=== PATIENT | male | born 1995 | race African-American/Black ===

== ENCOUNTER 2019-08-03 14:01 | Inpatient (IN) | payer MEDICAID, SELFPAY ==
[2019-08-03 14:03] VITALS: BP 134/76; PULSE 53; RESP 17; TEMP 36.6; O2SAT 97; BMI 32.3
--- NOTE | 2019-08-03 14:05 | ED_ITS ---
Entered by Joy Wallace, acting as scribe for Hector Aggarwal MD HPI - Psych General: Chief Complaint: Psychiatric Symptoms Stated Complaint: SUICIDAL Time Seen by Provider: 08/03/19 14:05 Source: patient and EMS Mode of arrival: EMS Limitations: no limitations History of Present Illness: HPI Narrative: 24 yo male presents to ED with suicidal ideations. The patient states this has been going on for 6-8 months. He said today that he was having heart problems and this just sent him over the roof . The patient denies chest pain. He said he does not have a plan. The patient has a history of anxiety, schizophrenia, and depression. complaint: suicidal ideation Onset (ago): hour(s) Duration: constant History of same: Yes Relieving factors: medication Exacerbating factors: other (health issues) Context: significant life stressor (health problems) Associated psychiatric symptoms: depression Associated symptoms: Reports depression Treatments prior to arrival: none If self harm: admits thoughts of self harm Review of Systems Const: Denies: fever or chills Eyes: Denies: photophobia ENMT: Denies: throat pain or mouth pain Card: Denies: chest pain Resp: Denies: shortness of breath GI: Denies: abdominal pain, nausea, vomiting or diarrhea Musc: Denies: joint warmth Skin/Breast: Denies: rash Neuro: Denies: headache Psych: Reports: depression Endo: Denies: excessive urination Lavell/Lymph: Denies: easy bruising All/Imm: Denies: hives PFSH ED PFSH: Statuses (acute, chronic, etc) shown below reflect problem list status as previously entered and may not be historically accurate Medical History (Updated 08/03/19 @ 15:21 by Hector Aggarwal MD) Agoraphobia with panic disorder (Acute) Generalized anxiety disorder (Acute) Major depressive disorder, recurrent, moderate (Acute) Right bundle branch block (RBBB) on electrocardiogram (ECG) (Acute) Schizophrenia (Acute) ST elevation (Acute) Social History (Updated 08/03/19 @ 11:41 by Kelli Little LPN) Smoking and tobacco status: current every day smoker cigarettes Alcohol intake: never Current gender identity: Male Physical Exam Const: COMMON NORMALS: no apparent distress, oriented x3 and healthy appearing HENMT: COMMON NORMALS: normocephalic and external nose normal HEAD & SCALP: normocephalic NOSE: external nose normal Eye: COMMON NORMALS: PERRL PUPIL: Yes PERRL Neck/C-Spine: COMMON NORMALS: full ROM and no lymphadenopathy Chest: COMMONS NORMALS: inspection of chest normal Resp: COMMON NORMALS: normal respiratory effort, no use of accessory muscles and clear to auscultation bilaterally AUSCULTATION: clear to auscultation bilaterally Cardio: COMMON NORMALS: regular rate and regular rhythm RATE: regular rate RHYTHM: regular rhythm GI: COMMON NORMALS: normal to inspection, nondistended, normoactive bowel sounds, soft to palpation, non-tender and no masses PALPATION: Yes soft Back/Pelvis: THORACIC SPINE/UPPER BACK: Yes normal to inspection Extremity: COMMON NORMALS: normal to inspection, full ROM and normal capillary refill Neuro: COMMON NORMALS: oriented x3 Psych: COMMON NORMALS: mental status grossly normal and cooperative MOOD & AFFECT: Yes depressed mood Skin: COMMON NORMALS: no rashes or lesions noted GENERAL SKIN EXAM: no rashes or lesions noted MDM - Psych MDM Narrative: Medical decision making narrative: Patient presents here with suicidal ideation. Patient is voluntarily wanting help. Patient is medically cleared I spoke to psychiatrist Dr. Aguila and will admit to the psychiatric unit. Lab Data: Labs: Lab Results 08/03/19 08/03/19 08/03/19 Range/Units 14:20 14:30 14:30 WBC 6.5 (4.0-10.0) 10^3/ uL RBC 5.73 H (4.1-5.3) 10^6/u L Hgb 15.5 (11.7-16.6) g/dL Hct 48.9 (42.0-52.0) % MCV 85.3 (80-94) fL MCH 27.1 L (28.0-34.0) pg MCHC 31.7 (30.0-36.0) g/dL RDW 12.4 (12.1-15.1) % Plt Count 183 (130-400) 10^3/c mm MPV 10.3 (7.4-10.4) fL Neut % (Auto) 72.1 % Lymph % (Auto) 20.9 % [place] % (Auto) 5.4 % Eos % (Auto) 0.9 % Baso % (Auto) 0.5 % Neut # (Auto) 4.7 (1.8-7.7) 10^3/u L Lymph # (Auto) 1.4 (0.8-4.8) 10^3/u L [place] # (Auto) 0.4 (0.2-0.9) 10^3/u L Eos # (Auto) 0.1 (0.0-0.8) 10^3/u L Baso # (Auto) 0.0 (0.0-0.1) 10^3/u L Nucleated RBC % (a uto) 0 % Nucleated RBCs # 0.0 /100WBC Sodium 141 (136-145) mmol/L Potassium 3.9 (3.5-5.1) mmol/L Chloride 102 (98-107) mmol/L Carbon Dioxide 28 (22-29) mmol/L Anion Gap 14.9 (5-19) BUN 12 (6-20) mg/dL Creatinine 1.2 (0.7-1.2) mg/dL GFR Calculation 90.8 (90-130) mL/min Glucose 109 (74-109) mg/dL Calcium 9.9 (8.5-10.5) mg/dL Total Bilirubin 0.4 (0.15-1.2) mg/dL AST 20 (0-40) U/L ALT 17 (0-41) U/L Alkaline Phosphata se 99 (40-130) IU/L Total Protein 7.2 (6.6-8.7) g/dL Albumin 4.7 (3.5-5.2) g/dL Globulin 2.5 (1.3-4.6) g/dL Salicylates < 0.3 L (3-10) mg/dL Urine Opiates Scre en Negative (Negative) ng/mL Acetaminophen < 5.0 L (10-30) ug/mL Ur Barbiturates Sc reen Negative (Negative) ng/mL Ur Phencyclidine S crn Negative (Negative) ng/mL Ur Amphetamines Sc reen Negative (Negative) ng/mL U Benzodiazepines Scrn Negative (Negative) ng/mL Urine Cocaine Scre en Negative (Negative) ng/mL U Marijuana (THC) Screen Positive H (Negative) ng/mL Ethyl Alcohol < 10 (0-10) mg/dL Discharge Plan Discharge Patient Disposition: Admitted As Inpatient Admit Provider: Krunal Aguila Clinical Impression: Suicidal ideation Condition: Stable Referrals: Abbi Saleem MD [Family Provider] - Betty Avila MD [Primary Care Provider] - Coding Level of Care Code ED Clinic Lpn for Chg Fwd Exam Problem Focused The documentation recorded by the Madison hathaway Valerie R, accurately reflects the service I personally performed and the decisions made by me, Hector Aggarwal MD Aug 03, 2019 14:01
[2019-08-03 14:41] LABS: Basophils % 0.5 %; Eosinophils # 0.1 10^3/uL (0.0-0.8); Eosinophils % 0.9 %; Hematocrit 48.9 % (42.0-52.0); Hemoglobin 15.5 g/dL (11.7-16.6); Lymphocytes # 1.4 10^3/uL (0.8-4.8); Lymphocytes % 20.9 %; Mean Corpuscular HGB Conc 31.7 g/dL (30.0-36.0); Mean Corpuscular Hemoglobin 27.1 pg (28.0-34.0); Mean Corpuscular Volume 85.3 fL (80-94); Mean Platelet Volume 10.3 fL (7.4-10.4); Monocytes # 0.4 10^3/uL (0.2-0.9); Monocytes % 5.4 %; Neutrophils # 4.7 10^3/uL (1.8-7.7); Neutrophils % 72.1 %; Nucleated Red Blood Cells % 0 %; Platelet Count 183 10^3/cmm (130-400); Red Blood Count 5.73 10^6/uL (4.1-5.3); Red Cell Distribution Width 12.4 % (12.1-15.1); White Blood Count 6.5 10^3/uL (4.0-10.0)
[2019-08-03 15:07] LABS: Alanine Aminotransferase 17 U/L (0-41); Albumin Level 4.7 g/dL (3.5-5.2); Alkaline Phosphatase 99 IU/L (40-130); Anion Gap 14.9 (5-19); Aspartate Amino Transferase 20 U/L (0-40); Blood Urea Nitrogen 12 mg/dL (6-20); Calcium 9.9 mg/dL (8.5-10.5); Carbon Dioxide 28 mmol/L (22-29); Chloride 102 mmol/L (98-107); Globulin 2.5 g/dL (1.3-4.6); Glomerular Filtration Rate 90.8 mL/min (90-130); Glucose 109 mg/dL (74-109); Potassium 3.9 mmol/L (3.5-5.1); Sodium 141 mmol/L (136-145); Total Bilirubin 0.4 mg/dL (0.15-1.2); Total Protein 7.2 g/dL (6.6-8.7)
[2019-08-03 15:12] LABS: Acetaminophen < 5.0 ug/mL (10-30); Alcohol Level < 10 mg/dL (0-10); Salicylate < 0.3 mg/dL (3-10)
[2019-08-03 15:21] LABS: Amphetamines Screen Urine Negative (Negative); Barbiturates Screen Urine Negative (Negative); Benzodiazepines Screen Urine Negative (Negative); Cocaine Screen Urine Negative (Negative); Opiate Screen Urine Negative (Negative); PCP Screen Urine Negative (Negative); THC Screen Urine Positive (Negative)
[2019-08-03 15:56] VITALS: BP 134/67; PULSE 60; RESP 18; O2SAT 98
[2019-08-03 16:35] VITALS: BP 123/83; PULSE 61; RESP 18; TEMP 36.8; O2SAT 98
--- NOTE | 2019-08-03 16:47 | PM.NHP ---
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 They told me I can't exercise any more. History of present illness: Luis Fernando Hanley Is a 24-year-old man with a documented history of schizophrenia and major depression amplified by occasional panic attacks. He reports that in general he is doing well and feels that his medications for the schizophrenia and depression are effective and is not interested changed. He saw a machine adjuster leader case trim yesterday the [facility]] with documentation listed below that confirms that he was actually doing well. 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 He has a history of an EKG that shows a right bundle branch block. There is a reading from his last hospitalization in April 2019 from an EKG that lists a right bundle branch block as an assessment. However it is not clear whether that has ever been confirmed. His primary care physician has referred him to a multimedia author but he does not have an appointment made yet. This has been a quite a blow to his perception of the future. He is currently feeling hopeless and overwhelmed. There is the only thing felt good at. Without being able to engage in that activity, he feels as though there is nothing to live for and he would want to . He has no active plan and no intent at this time. However he is quite ruminated and does not see any potential changes from the future. Laboratory Tests 08/03/19 08/03/19 14:20 14:30 Urine Opiates Screen Negative Ur Barbiturates Screen Negative Ur Phencyclidine Scrn Negative Ur Amphetamines Screen Negative U Benzodiazepines Scrn Negative Urine Cocaine Screen Negative U Marijuana (THC) Screen Positive H Ethyl Alcohol < 10 Documentation from meeting with his machine adjuster leader case trim earlier today: Psychosocial History Chief Complaint: Client reports: anxiety and depression makes each day difficult . History of Present Illness: anxiety started about 1 year ago, feel like I am going to , get to shaking sometimes, worry comes and goes, experience panic attacks about once a day, feel like I cannot breathe and when will I have the next one, was hospitalized in February for sucidal thoughts. Childhood/Family History:: Individual Served reports pertinent childhood/family history to include decent childhood, raised by single mother, father was not in my life, 3 brothers I knew growing up, raised in this area. PHQ-9 Over the last 2 weeks, how often have you been bothered by any of the following problems? 1. Little interest or pleasure in doing things: not at all 2. Feeling down, depressed, or hopeless: more than half the days 3. Trouble falling or staying asleep, or sleeping too much: not at all 4. Feeling tired or having little energy: not at all 5. Poor appetite or overeating: not at all 6. Feeling bad about yourself - or that you are a failure or have let yourself or your family down: several days 7. Trouble concentrating on things, such as reading the newspaper or watching television: not at all 8. Moving or speaking so slowly that other people could have noticed. Or the opposite - being so fidgety or restless that you have been moving around a lot more than usual: more than half the days 9. Thoughts that you would be better off or of hurting yourself in some way: not at all Total score: 5 10. If you checked off any problems, how difficult have those problems made it for you to do your work, take care of things at home, or get along with other people?: somewhat difficult Source: Developed by Drs. Jerome George, Maria Del Rosario Avila, Antonio Mallory and colleagues, with an educational pamela from [employer]. C-SSRS Suicide Ideation for the Past Month Have you wished you were or wished you could go to sleep and not wake up?: Yes Have you actually had any thoughts of killing yourself? (e.g., ?I?ve thought about killing myself?): Yes If YES to 2, ask questions 3, 4, 5, and 6. If NO to 2, go directly to question 6 Have you been thinking about how you might do this? ?I thought about taking an overdose but I never made a specific plan as to when where or how I would actually do it and I would never go through with it : Yes I thought about taking an overdose but I never made a specific plan as to when, where, or how I would actually do it....and I would never go through with it Have you had these thoughts and had some intention of acting on them? As opposed to ?I have the thoughts but I definitely will not do anything about them.?: Yes As opposed to I have the thoughts but I definitely will not do anything about them. Have you started to work out or worked out the details of how to kill yourself and do you intend to carry out this plan?: No Have you done anything, started to do anything, or prepared to do anything to end your life?: No How long ago did you do any of these?: Between three months and a year ago? Psychiatric Diagnosis 1. Diagnosis: Psychiatric Diagnosis: Generalized anxiety disorder 2. Diagnosis: Psychiatric Diagnosis: Panic disorder [episodic paroxysmal anxiety] 3. Diagnosis: Psychiatric Diagnosis: Schizophrenia, unspecified Psychiatric Treatment GAF: 50 Past psychiatric history Patient has had 2 prior psychiatric hospitalizations this facility. He has responded well to treatment. It should be noted that he had an adverse reaction to Abilify which caused him to have insomnia and severe akathisia. Family psychiatric history It is noted that he has a brother who has been treated for the same diagnoses. His physician is familiar with the brother and his noted that the brother also had a severe extraparamydal response to Haldol and similar antipsychotic medication To the point of life threatening. Social history: Level of Completed Education: GED Completed History of Education: Dropped out after 10th grade then completed GED Academic Performance: Performance at grade level Language(s) Spoken: [place] Vocational Information: Other (currently working with [employer]) Financial Information: Other Employment History: Not currently working, going through the [facility] program Legal Status/History: Current legal issues denied Legal Issues Reported: N/A Ability to Care for Self: Reports being able to care for self Current Living Environment: Relative ( I live with my mother. ) Social/Peer Setting: Family Spiritual Pursuits: Restorationism Leisure/Recreational: play video games, go for a run, exercise. Individual's Obstacles: Limited Income, Low Self-Esteem, Chronic Mental Illness, Chaotic Lifestyle and Limited Insight Individual's Needs: finding a job. Legal history: Past medical history: Meds NPU Allergies Allergy/AdvReac Type Severity Reaction Status Date / Time No Known Allergies Allergy Verified 08/03/19 11:34 PFSH NPU PFSH: Statuses (acute, chronic, etc) shown below reflect problem list status as previously entered and may not be historically accurate Medical History (Updated 08/03/19 @ 15:21 by Hector Aggarwal MD) Agoraphobia with panic disorder (Acute) Generalized anxiety disorder (Acute) Major depressive disorder, recurrent, moderate (Acute) Right bundle branch block (RBBB) on electrocardiogram (ECG) (Acute) Schizophrenia (Acute) ST elevation (Acute) Social History (Updated 08/03/19 @ 11:41 by Kelli Little LPN) Smoking and tobacco status: current every day smoker cigarettes Alcohol intake: never Current gender identity: Male Mental Status Exam MSE Comments: Mental Status Exam: The patient is alert interpersonally engaged me in approximately his stated age. Eye contact is good. Psychomotoric activity is unremarkable. He is believed to be a reliable informant is the information revises internally consistent and consistent with that in his chart history. Appearance: hygiene is fair; no gross neurological deficits., gait is unremarkable; AIMS=0 Speech: Speech is of normal rate and rhythm and easily understood. Thought processes: Thought processes are abstract. Judgment is adequate for safety. Associations: intact Psychotic processes: There is no indication of guarding or paranoia. There is no attention to the internal stimuli. Auditory and visual hallucinations are denied. Judgment: Insight is fair. Problem solving skills are adequate for safety. Orientation: The patient is oriented to person, place time and situation. Memory: no deficits noted in immediate, intermediate, or remote spheres. Attention: The patient is alert and interpersonally engaged. Language: Verbalizations are coherent. Fund of knowledge: Fund of knowledge is adequate. Affect/Mood: Affect is Occasionally tearful with a depressed mood. 89 suicidal ideation Affective range is Constricted Psychosis: perception unimpaired except through cognitive distortion; reality testing intact. Vitals/I&O/Wt Last Vital Signs Temp 98.2 F 08/03/19 16:35 Pulse 61 08/03/19 16:35 Resp 18 08/03/19 16:35 BP 123/83 08/03/19 16:35 Pulse Ox 98 08/03/19 16:35 Weight last 48 hrs Weight 102.058 kg Data NPU : 08/03/19 14:30 08/03/19 14:30 A&P Additional A&P Information Adjustment disorder with disturbance of mood?Depressed Schizophrenia Chronic?undifferentiated Social phobia (F40.10) Generalized anxiety disorder (F41.1) Major Depressive Disorder- Recurrent, in remission Assessment: Treatment plan: Due to the psychiatric conditions and treatment listed in the Assessment and Plan - the patient requires continued hospitalization. Will provide a safe and therapeutic environment for patient.. Will continue inpatient treatment to allow for medication adjustment and monitoring. Will continue q15 min safety checks. Will continue current medications and monitor for medication side effects. At this time we will continue his Zyprexa 20 mg bedtime and proximal teeth 40 mg at bedtime. He'll be given a trial of diazepam 5 mg anxiety to assess its improved response to Over clonazepam Monitor patient's mood, sleep, appetite, and behavior closely. Encourage patient to participate in individual and group therapeutic sessions on the [place]. Estimated length of stay 5 days The expected benefits and potential side effects of patient's psychiatric medications were discussed with the patient. The patient understands and consents to treatment.CRITERIA FOR DISCHARGE: stable on medications and no longer an im Attestations NPU Medical Necessity Statement*: Patient will remain in the hospital while we assess his medications. He'll be here for 3 more days. Coding Level of Care Code Acute A P Mechanic for Jamal Bell
[2019-08-03 21:02] VITALS: BP 121/79; PULSE 64; RESP 18; TEMP 36.4; O2SAT 95
[2019-08-03] MEDS: OLANZapine 10 mg TABLET 20 MG PO (21:10)
[2019-08-04] MEDS: nicotine 2 mg Gum BUCCAL ×3 (00:36→19:45)
[2019-08-04] MEDS: trazodone 50 mg Tablet PO ×2 (00:36→21:25)
[2019-08-04 05:57] VITALS: BP 113/66; PULSE 63; RESP 19; TEMP 36.5; O2SAT 19
[2019-08-04] MEDS: PARoxetine 20 mg Tablet 40 MG PO (08:56)
--- NOTE | 2019-08-04 10:09 | ECG_ITS ---
Measurements Intervals [place] Rate: 64 P: 50 IN: 176 QRS: 29 QRSD: 123 T: 64 QT: 386 QTc: 401 SINUS RHYTHM INDETERMINATE AXIS RIGHT BUNDLE BRANCH BLOCK [120+ ms QRS DURATION, UPRIGHT V1, 40+ ms S IN I/aVL/V4/V5/V6] INTERPRETATION BASED ON A DEFAULT AGE OF 40 YEARS Compared to ECG 03/05/2019 15:45:05 No significant changes Electronically Signed On 08-04-2019 18:03:37 STUDIO ASSISTANT by Syd Mohr M.D. [email or web address]
[2019-08-04 14:00] VITALS: BP 126/70; PULSE 77; RESP 18; TEMP 36.5; O2SAT 18
[2019-08-04] MEDS: OLANZapine 10 mg TABLET 20 MG PO (21:20)
[2019-08-04] MEDS: diazePAM 5 mg Tablet PO (21:24)
[2019-08-04 21:38] VITALS: BP 116/79; PULSE 74; RESP 19; TEMP 36.5; O2SAT 97
--- NOTE | 2019-08-04 21:41 | PC.NURSE ---
PT C/O ANXIETY AND DIFFICULTY FALLING ASLEEP DURING RECEIVING HIS BEDTOME MEDS. MEDICATED WITH VALIUM 5 MG PO FOR ANXIETY AND 50MGS TRAZODONE FOR SLEEP. WILL CONTINUE TO MONITOR.
--- NOTE | 2019-08-05 01:31 | PC.NURSE ---
PT NOTED TO BE RESTING WITH EYES CLOSED 30 MINUTES AFTER RECEVING PRNS FOR ANXIETY AND SLEEP. WILL CONTINUE TO MONITOR
[2019-08-05 06:00] VITALS: BP 113/72; PULSE 54; RESP 18; TEMP 36.4; O2SAT 97
[2019-08-05] MEDS: PARoxetine 20 mg Tablet 40 MG PO (09:13)
[2019-08-05] MEDS: nicotine 2 mg Gum BUCCAL ×2 (12:24→19:34)
--- NOTE | 2019-08-05 12:33 | P.PN_ITS ---
Subjective NPU Subjective: Interval history: Patient states that the medications (olanzapine 20 mg p.o. nightly and paroxetine 40 mg p.o. daily) we had initiated with him appear to be having a most beneficial effect. 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 Medications: Reviewed: Yes Mental Status Exam MSE Comments: The patient is alert and oriented to person, place, time, and situation. Hygiene is good. Sensorium is clear. The patient maintains appropriate eye contact, The patient is cooperative and relates well to me. Behavior shows no psychomotor agitation. Mood is calm and euthymic. Affect is appropriate. Thought processes are organized and free of racing, blocking or looseness of association. Speech is of normal rate and volume, without dysarthria, aprosody or pressure. There is no inordinate latency of response. Thought processes are integrated and free of any racing, blocking or looseness of association. The patient denies auditory or visual hallucinations or delusions. The patient denies suicidal or homicidal ideation, plan or intent. Memory is intact for recent and remote events. Fund of knowledge is adequate given vocabulary. Insight and judgment were deemed to be good given the recogni tion of problems and desire for treatment. Vitals/I&O/Wt Last Vital Signs Temp 97.5 F L 08/05/19 06:00 Pulse 54 L 08/05/19 06:00 Resp 18 08/05/19 06:00 BP 113/72 08/05/19 06:00 Pulse Ox 97 08/05/19 06:00 Weight last 48 hrs Weight 226 lb 2 oz Weight 225 lb Physical Exam Narrative: EXAM NARRATIVE: Skin unremarkable, head normocephalic and atraumatic, eyes pupils equal round, regular and reactive to light and accommodation. Neck supple, no bruits no thyromegaly. Chest clear to auscultation. Heart normal sinus rhythm no murmur. Abdomen bland. Extremities no cyanosis clubbing or edema. Neurological cranial nerves II-12 intact. No cerebellar sensory or motor deficit noted. Data NPU : 08/03/19 14:30 08/03/19 14:30 A&P Additional A&P Information Adjustment disorder with disturbance of mood?Depressed Schizophrenia Chronic?undifferentiated. I think current pharmacotherapy has made a dent in these first 2 diagnoses Social phobia (F40.10) Generalized anxiety disorder (F41.1) Major Depressive Disorder- Recurrent, in remission Assessment: Treatment plan: Due to the psychiatric conditions and treatment listed in the Assessment and Plan - the patient requires continued hospitalization. Will provide a safe and therapeutic environment for patient.. Will continue inpatient treatment to allow for medication adjustment and monitoring. Will continue q15 min safety checks. Will continue current medications and monitor for medication side effects. At this time we will continue his Zyprexa 20 mg bedtime and paroxetine 40 mg at bedtime. He'll be given a trial of diazepam 5 mg anxiety to assess its improved response to Over clonazepam Monitor patient's mood, sleep, appetite, and behavior closely. Encourage patient to participate in individual and group therapeutic sessions on the [place]. The patient appears to have stabilized considerably. I anticipate that he may b e able to go home in 2 or 3 days. The expected benefits and potential side effects of patient's psychiatric medications were discussed with the patient. The patient understands and consents to treatment.CRITERIA FOR DISCHARGE: stable on medications. 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 He wanted to know what impact of right bundle branch block would have on his involvement in that sport. I indicated that we would want to refer the question to a it support technician or a sports clerk. Involuntary Hold Information 96 Hour Hold: 96 Hour Involuntary Admission: No Attestations NPU Medical Necessity Statement*: The patient is moving rapidly. With the return of our naval surface fire support planner tomorrow, we may be able to get him home tomorrow or the next day. We'll see. Time Spent in Patient Care: Greater than 35 minutes (>than 50% of time spent in counselling and/or direct pt care on unit) . Coding Level of Care Code Acute Qualified Craft Worker Electrician for Jamal Bell
[2019-08-05 13:05] VITALS: BP 112/68; PULSE 98; RESP 18; TEMP 36.5; O2SAT 98
[2019-08-05] MEDS: OLANZapine 10 mg TABLET 20 MG PO (21:05)
[2019-08-05 21:36] VITALS: BP 120/81; PULSE 80; RESP 17; TEMP 36.4; O2SAT 96
[2019-08-06 07:09] VITALS: BP 98/62; PULSE 55; RESP 16; TEMP 36.4; O2SAT 98
[2019-08-06] MEDS: PARoxetine 20 mg Tablet 40 MG PO (09:36)
[2019-08-06] MEDS: nicotine 2 mg Gum BUCCAL (12:00)
--- NOTE | 2019-08-06 12:16 | PM.NDC ---
Diagnoses at Discharge Discharge Diagnosis (1) Suicidal ideation: Status: Acute (2) Schizophrenia: Status: Acute (3) Major depressive disorder, recurrent, moderate: Status: Acute Reason for Visit Reason for Visit: Reason For Visit: SUICIDAL Involuntary Hold Information 96 Hour Hold: 96 Hour Involuntary Admission: No Discharge Data Vitals: Last Vital Signs Temp 97.6 F 08/06/19 07:09 Pulse 55 L 08/06/19 07:09 Resp 16 08/06/19 07:09 BP 98/62 08/06/19 07:09 Pulse Ox 98 08/06/19 07:09 Discharge Plan Discharge Patient Disposition: Home, Self-Care Condition: Stable Prescriptions: Continued olanzapine [Zyprexa] 20 mg tablet 20 mg PO .at bedtime Qty: 30 RF: 2 paroxetine HCl [Paxil] 40 mg tablet 40 mg PO DAILY Qty: 30 RF: 2 clonazepam [Klonopin] 0.5 mg tablet 0.5 mg PO BID PRN (Reason: anxiety) Qty: 60 RF: 2 Discharge Orders: Discharge Order (Routine); Ordered 08/06/19 Ordered By: Alverto Del Toro Referrals: Marcelle Helms [Therapist] - 08/08/19 2:45 pm Rhiannon Carreon [Staff Physician] - 08/17/19 11:15 am Abbi Saleem MD [Family Provider] - Betty Avila MD [Primary Care Provider] - Discharge Diet: Usual diet Discharge Activity: Resume usual activity Discharge Attestations NPU Time Spent in Discharge Care*: greater than 30 min Coding Level of Care Code Acute Telegraph Repeater Mechanic for [facility] Fwd Diagnoses Suicidal ideation R45.851 Schizophrenia F20.9 Major depressive disorder, recurrent, moderate F33.1
[2019-08-06 12:40] VITALS: BP 98/62; PULSE 55; RESP 16; TEMP 36.4; O2SAT 98
[2019-08-06 13:25] VITALS: BP 110/74; PULSE 80; RESP 18; TEMP 37.1; O2SAT 99
== END 2019-08-06 14:30 | disposition home or self-care (01) | DRG 880 ==
LOC: ER 15:21 → NP 15:52
PROVIDERS: Admitting Provider Psychiatry & Neurology Psychiatry; Emergency Provider Emergency Medicine; Family Provider Internal Medicine Cardiovascular Disease; PCP Family Medicine; Visit Provider Psychiatry & Neurology Psychiatry
DX: F41.1 Generalized anxiety disorder (principal); F33.1 Major depressive disorder, recurrent, moderate; R45.851 Suicidal ideations; F20.9 Schizophrenia, unspecified; F40.01 Agoraphobia with panic disorder; F17.210 Nicotine dependence, cigarettes, uncomplicated; I45.10 Unspecified right bundle-branch block
CPT/HCPCS: 12345; 36415; 80053; 80307; 85025; 93005; 99284

== ENCOUNTER 2019-08-03 14:01 | Emergency (ER) | payer MEDICAID, SELFPAY | END 2019-08-03 16:01 | disposition admitted as inpatient to this hospital (09) | LOC: ER 08-29 10:10 | PROVIDERS: Emergency Provider Emergency Medicine; Family Provider Internal Medicine Cardiovascular Disease; PCP Family Medicine | DX: F32.9 Major depressive disorder, single episode, unspecified (principal); R45.851 Suicidal ideations; F17.210 Nicotine dependence, cigarettes, uncomplicated; I45.10 Unspecified right bundle-branch block | CPT/HCPCS: 36415; 80053; 80307; 85025; 99284; 99285 ==

== ENCOUNTER 2020-09-28 19:57 | Inpatient (IN) | payer MEDICAID, SELFPAY ==
--- NOTE | 2020-09-28 19:59 | ECG_ITS ---
[facility] Test Date: 2020-09-28 Pat Name: Luis Fernando Hanley Department: Room: Gender: Male Design Cell Engineer: : 1995 Requested By: Henri Villegas Order Number: [id number] Sesay MD: Abbi Saleem M.D. Measurements Intervals [place] Rate: 83 P: 17 FL: 173 QRS: -55 QRSD: 122 T: 57 QT: 372 QTc: 437 Interpretive Statements SINUS RHYTHM RIGHT BUNDLE BRANCH BLOCK [120+ ms QRS DURATION, UPRIGHT V1, 40+ ms S IN I/aVL/V4/V5/V6] LEFT ANTERIOR FASCICULAR BLOCK [QRS AXIS <= -45, QR IN I, RS IN II] Compared to ECG 08/04/2019 14:58:00 Left anterior fascicular block now present Indeterminate axis no longer present Electronically Signed On 09-29-2020 12:59:59 CDT by Abbi Saleem M.D. [id number]
[2020-09-28 20:01] VITALS: BP 134/85; PULSE 84; RESP 16; TEMP 36.6; O2SAT 94; BMI 33.5
--- NOTE | 2020-09-28 20:15 | W.ED.PSYCH ---
HPI - Psych General: Chief Complaint: Psychiatric Symptoms Stated Complaint: SI Time Seen by Provider: 09/28/20 20:00 History of Present Illness: HPI Narrative: The patient is a 25-year-old male who comes to the ER complaining of suicidal ideations. He says he thought about hurting himself today but made no attempt. He has made multiple attempts in the past. He says he has been going through a lot of stress but would not specify. He has a history of schizophrenia, depression, and anxiety. Denies drug and alcohol abuse MD complaint: suicidal ideation and feels depressed Duration: constant History of same: Yes Relieving factors: none Context: significant life stressor Associated psychiatric symptoms: depression and suicidal ideation Associated symptoms: Reports no associated symptoms, depression and suicidal ideation Review of Systems General: Reports: 10 or more systems reviewed and unremarkable except in HPI and below Const: Denies: fatigue Eyes: Denies: change in vision, blurry vision or eye redness ENMT: Denies: throat pain, swelling of lips/tongue, ear or mastoid pain or nasal congestion Card: Denies: chest pain, palpitations, irregular heart rhythm, edema, dyspnea on exertion or orthopnea Resp: Denies: dyspnea, productive cough or non-productive cough GI: Denies: abdominal pain, diarrhea or GI cramping : Denies: flank pain, urinary frequency or urinary urgency Musc: Denies: neck pain, back pain, extremity pain, joint pain, joint redness, limited range of motion or muscle weakness Skin/Breast: Denies: rash, pruritus, erythema, skin pain or skin tenderness Neuro: Denies: headache(s), numbness in extremities, weakness in extremities, sensory changes, difficulty walking, dizziness, confusion or Slurred speech present Psych: Reports: depression and suicidal ideation; Denies: anxiety Endo: Denies: polyuria All/Imm: Denies: urticaria, throat swelling or tongue swelling PFSH ED PFSH: Medical History (Updated 09/28/20 @ 21:16 by Hneri Villegas MD) Agoraphobia with panic disorder Generalized anxiety disorder Major depressive disorder, recurrent, moderate Right bundle branch block (RBBB) on electrocardiogram (ECG) Schizophrenia ST elevation Family History Grandfather Diabetes Social History (Updated 08/06/19 @ 07:51 by Vianey Jones RN) Smoking and tobacco status: current every day smoker cigarettes Packs smoked per day: 0.25 Years cigarettes smoked: 4 Quit status (tobacco): has tried quititng Second hand smoke exposure: Yes (mother and stepfather) Smoking risk assessment/counseling performed?: Yes Alcohol intake: former Adopted: No Caregiver/support person: No Lives independently: No Household members: other Details: Mother, Step father, 4 brothers Housing: House Marital status: Single Number of children: 0 Number of grandchildren: 0 Highest education level completed: GED or Equivalent Education level details: 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 service: No Current occupational status: unemployed Pets and animals: No History of recent travel: No Leisure activites: exercise Sexually active: No Current gender identity: Male Ashley/Zoroastrianism: Unknown Special ashley needs: No Agree to transfusion: Yes Financial difficulty paying for basics: Somewhat Hard Physical Exam Const: COMMON NORMALS: no acute distress, average body habitus, patient oriented x3, no limitations, healthy appearing, alert and well nourished GENERAL APPEARANCE: cooperative, comfortable, well kempt and well developed ORIENTATION/CONSCIOUSNESS: Yes awake, Yes oriented to person, Yes oriented to place and Yes oriented to time HENMT: COMMON NORMALS: normocephalic, external ears normal and Normal external nose present HEAD & SCALP: normal to inspection and normocephalic NOSE: Normal external nose present EXTERNAL EAR: Yes external ears normal MOUTH: Normal oral and palatal mucosa present THROAT: posterior oropharynx normal Eye: COMMON NORMALS: Equal, round and reactive pupils present and EOMs intact bilaterally GENERAL EYE: appearance normal, both eyes and all related structures PUPIL: Yes Equal, round and reactive pupils present Neck/C-Spine: COMMON NORMALS: full ROM, no lymphadenopathy, no meningeal signs and no JVD GENERAL: Yes normal visual inspection Lymph: LYMPHATIC: no lymphadenopathy noted Chest: COMMONS NORMALS: normal inspection of the chest and normal palpation of entire chest wall Resp: COMMON NORMALS: normal respiratory effort, No retractions, No use of accessory muscles, clear to auscultation bilaterally and percussion normal EFFORT & INSPECTION: Yes able to speak in complete sentences AUSCULTATION: clear to auscultation bilaterally PERCUSSION: percussion normal Cardio: COMMON NORMALS: no JVD, regular rate, regular rhythm, S1 normal heart sound present, S2 normal heart sound present and Peripheral pulses 2+ throughout RATE: regular rate RHYTHM: regular rhythm HEART SOUNDS: S1 normal heart sound present and S2 normal heart sound present PERIPHERAL PULSES: Peripheral pulses 2+ throughout GI: COMMON NORMALS: Normal to inspection, nondistended, normoactive bowel sounds present, Soft to palpation, non-tender and no masses INSPECTION: Yes normal to inspection PALPATION: Yes Soft to palpation : COMMON NORMALS: Yes no CVA tenderness BLADDER/KIDNEY EXAM: Yes no CVA tenderness Back/Pelvis: COMMON NORMALS: no CVA tenderness, thoracic and lumbar spine normal to inspection, no thoracic nor lumbar tenderness and thoraco-lumbar ROM normal Extremity: COMMON NORMALS: normal to inspection, full ROM, capillary refill normal, no joint enlargement and no pedal edema GENERAL: Yes normal exam except as noted Neuro: COMMON NORMALS: patient oriented x3, CN's II-XII intact bilaterally, moves all extremities, no focal motor deficits, no sensory deficits noted and gait normal SENSORIUM/ORIENTATION: Yes alert, Yes oriented to person, Yes oriented to place and Yes oriented to time MENINGEAL SIGNS: Yes no meningeal signs Psych: COMMON NORMALS: Normal thought process present, cooperative, normal affect and speech normal APPEARANCE: Yes well kempt ATTITUDE: Yes calm and Yes Withdrawn affect present SPEECH: Yes normal speech MOOD & AFFECT: Yes depressed mood THOUGHT PROCESS: Normal thought process present THOUGHT CONTENT: Yes Suicidality present INSIGHT: Poor insight present (Psych) JUDGEMENT: Poor judgement present (Psych) Skin: COMMON NORMALS: no rashes or lesions noted GENERAL SKIN EXAM: no rashes or lesions noted MDM - Psych MDM Narrative: Medical decision making narrative: Patient comes to the ER depressed and complaining of suicidal ideations. No plan. Lab work is normal. Urine pending. Discussed with Dr. Yuen who accepts to neuropsych. Lab Data: Labs: Lab Results 09/28/20 09/28/20 Range/Units 20:15 20:15 WBC 9.4 (4.0-10.0) 10^3/ uL RBC 5.68 H (4.1-5.3) 10^6/u L Hgb 16.0 (11.7-16.6) g/dL Hct 48.9 (42.0-52.0) % MCV 86.1 (80-94) fL MCH 28.2 (28.0-34.0) pg MCHC 32.7 (30.0-36.0) g/dL RDW 12.3 (12.1-15.1) % Plt Count 206 (130-400) 10^3/c mm MPV 10.2 (7.4-10.4) fL Neut % (Auto) 71.9 % Lymph % (Auto) 19.5 % [place] % (Auto) 6.7 % Eos % (Auto) 1.1 % Baso % (Auto) 0.6 % Neut # (Auto) 6.74 (1.8-7.7) 10^3/u L Lymph # (Auto) 1.8 (0.8-4.8) 10^3/u L [place] # (Auto) 0.6 (0.2-0.9) 10^3/u L Eos # (Auto) 0.1 (0.0-0.8) 10^3/u L Baso # (Auto) 0.1 (0.0-0.1) 10^3/u L Nucleated RBC % (a uto) 0 % Nucleated RBCs # 0.0 /100WBC Sodium 138 (136-145) mmol/L Potassium 4.1 (3.5-5.1) mmol/L Chloride 102 (98-107) mmol/L Carbon Dioxide 24 (22-29) mmol/L Anion Gap 16.1 (5-19) BUN 12 (6-20) mg/dL Creatinine 1.0 (0.7-1.2) mg/dL GFR Calculation 111.1 (90-130) mL/min Glucose 84 (65-115) mg/dL Calculated Osmolal ity 285 (285-295) mOsm/k g Calcium 9.8 (8.5-10.5) mg/dL Total Bilirubin 0.3 (0.15-1.2) mg/dL AST 19 (0-40) U/L ALT 19 (0-41) U/L Alkaline Phosphata se 77 (40-130) IU/L Total Protein 7.3 (6.6-8.7) g/dL Albumin 4.6 (3.5-5.2) g/dL Globulin 2.7 (1.3-4.6) g/dL TSH 1.31 (0.27-4.20) uIU/ mL Salicylates < 0.3 L (3-10) mg/dL Acetaminophen < 5.0 L (10-30) ug/mL Ethyl Alcohol < 10 (0-10) mg/dL Discharge Plan Discharge Patient Disposition: Admitted As Inpatient Clinical Impression: Suicidal ideation, Depression Condition: Stable Coding Level of Care Code 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
[2020-09-28 20:28] LABS: Basophils # 0.1 10^3/uL (0.0-0.1); Basophils % 0.6 %; Eosinophils # 0.1 10^3/uL (0.0-0.8); Eosinophils % 1.1 %; Hematocrit 48.9 % (42.0-52.0); Lymphocytes # 1.8 10^3/uL (0.8-4.8); Lymphocytes % 19.5 %; Mean Corpuscular HGB Conc 32.7 g/dL (30.0-36.0); Mean Corpuscular Hemoglobin 28.2 pg (28.0-34.0); Mean Corpuscular Volume 86.1 fL (80-94); Mean Platelet Volume 10.2 fL (7.4-10.4); Monocytes # 0.6 10^3/uL (0.2-0.9); Monocytes % 6.7 %; Neutrophils # 6.74 10^3/uL (1.8-7.7); Neutrophils % 71.9 %; Nucleated Red Blood Cells % 0 %; Platelet Count 206 10^3/cmm (130-400); Red Blood Count 5.68 10^6/uL (4.1-5.3); Red Cell Distribution Width 12.3 % (12.1-15.1); White Blood Count 9.4 10^3/uL (4.0-10.0)
[2020-09-28 20:50] LABS: Acetaminophen < 5.0 ug/mL (10-30); Alanine Aminotransferase 19 U/L (0-41); Albumin Level 4.6 g/dL (3.5-5.2); Alcohol Level < 10 mg/dL (0-10); Alkaline Phosphatase 77 IU/L (40-130); Anion Gap 16.1 (5-19); Aspartate Amino Transferase 19 U/L (0-40); Blood Urea Nitrogen 12 mg/dL (6-20); Calcium 9.8 mg/dL (8.5-10.5); Carbon Dioxide 24 mmol/L (22-29); Chloride 102 mmol/L (98-107); Globulin 2.7 g/dL (1.3-4.6); Glomerular Filtration Rate 111.1 mL/min (90-130); Glucose 84 mg/dL (65-115); Osmolality Calculated 285 mOsm/kg (285-295); Potassium 4.1 mmol/L (3.5-5.1); Salicylate < 0.3 mg/dL (3-10); Sodium 138 mmol/L (136-145); Thyroid Stimulating Hormone 1.31 uIU/mL (0.27-4.20); Total Bilirubin 0.3 mg/dL (0.15-1.2); Total Protein 7.3 g/dL (6.6-8.7)
[2020-09-28 21:50] LABS: Add Urine Microscopic? NO
[2020-09-28 22:04] VITALS: RESP 16
[2020-09-28 22:10] LABS: Bilirubin Urine Neg (Negative); Blood Urine Neg (Negative); Glucose Urine UA Norm (Normal); Ketones Urine Negative (Negative); Leukocyte Esterase Urine Negative (Negative); Nitrate Urine Negative (Negative); Protein Urine Neg (Negative); Urine Appearance Clear (CLEAR); Urine Color Straw (Yellow); Urobilinogen Urine 1 mg/dL (Negative); pH Urine 5 (5-7)
[2020-09-28 22:47] VITALS: BP 129/83; PULSE 85; RESP 16; TEMP 36.9; O2SAT 96
[2020-09-28] MEDS: hyDROXYzine 25 mg Capsule 50 MG PO (23:18)
[2020-09-28] MEDS: nicotine 2 mg Gum BUCCAL (23:18)
[2020-09-28] MEDS: trazodone 50 mg Tablet PO (23:18)
[2020-09-28] MEDS: acetaminophen 325 mg Tablet 650 MG PO (23:18)
[2020-09-28 23:21] LABS: Amphetamines Screen Urine Negative (Negative); Barbiturates Screen Urine Negative (Negative); Benzodiazepines Screen Urine Negative (Negative); Cocaine Screen Urine Negative (Negative); Opiate Screen Urine Negative (Negative); PCP Screen Urine Negative (Negative); THC Screen Urine Negative (Negative)
--- NOTE | 2020-09-28 23:32 | PC.NURSE ---
pt arrived to unit complaining of a headache, Tylenol 650mg given. charge nurse also stated pt requested meds for sleep and anxiety. pt does exhibit nervousness and anxiety. vistaril 50mg given for anxiety, and trazodone 50mg given for sleep aide. will continue to monitor.
[2020-09-29] MEDS: trazodone 50 mg Tablet PO (01:55)
--- NOTE | 2020-09-29 01:59 | PC.NURSE ---
Pt continues to complain of not being able to sleep. Pt states he usually takes 100mg of Trazodone every night at bedtime. Pt was given second 50mg of Trazodone at this time for sleep. Pt states headache is better.
--- NOTE | 2020-09-29 02:00 | PC.NURSE ---
PT NOTE TO SLEEP ONLY ABOUT AN HOUR. PT NOTED TO TOSS AND TURN MOST OF THE NIGHT.
[2020-09-29 06:00] VITALS: BP 113/76; PULSE 66; RESP 16; TEMP 36.7; O2SAT 94
[2020-09-29 07:48] VITALS: BP 113/76
[2020-09-29] MEDS: PARoxetine 20 mg Tablet 40 MG PO (07:48)
[2020-09-29] MEDS: cloNIDine 0.1 mg Tablet PO (07:48)
[2020-09-29] MEDS: nicotine 2 mg Gum BUCCAL ×3 (08:23→18:12)
[2020-09-29 13:12] VITALS: BP 120/73; PULSE 78; RESP 18; TEMP 36.9; O2SAT 98
--- NOTE | 2020-09-29 13:40 | P.HP_ITS ---
Providers/Chief Complaint Admitting Physician: Maryan Yuen DO Chief Complaint: SI HPI NPU History of Present Illness Luis Fernando Hanley is a 25 year old male with a history of schizophrenia, major depressive disorder, generalized anxiety disorder presented to the emergency department with suicidal ideation although he reports having chronic passive suicidal ideation with a past attempt 5 to 6 months ago leading to a hospitalization in [place]. Patient states that he felt like coming to the emergency department because he feels like things had changed and he was not feeling good about his current state of mind and suicidal ideation. He denies any recent changes with medication but does report worsening ability to initiate and maintain sleep reporting that he only sleeps for a few hours at night and feels somewhat rested the next day. He reports that he was started on Seroquel 2050 mg at bedtime, mirtazapine 15 mg at bedtime, clonazepam 0.5 mg twice daily and paroxetine 40 mg daily during his last psychiatric hospitalization. Continues to report low mood states, depressive symptoms, decreased energy and interest in his usual activities, reports social isolation, social withdrawal although he currently denies any suicidal ideation or thoughts about self-harm. Patient does not describe any recent or past hypomanic or manic episodes. Denies any auditory or visual hallucinations, denies any delusions. Patient has significant history for generalized anxiety disorder as well as panic attacks although he currently denies any recent or current anxiety symptoms and denies any recent panic attacks. Patient denies any recent illicit drug use, has previously only tested positive for cannabis, denies any recent alcohol use or any other illicit drug use. Patient reports ongoing stressor of living with his mother and her boyfriend and would like to move out but reports limited financial resources. Patient reports being compliant with his medications. Review of Systems General: Reports: 10 or more systems reviewed and unremarkable except in HPI and below Meds NPU Home Medications Medication Instructions Recorded Confirmed Last Taken Type olanzapine 20 mg tablet 20 mg PO .at bedtime #30 tab 12/19/19 09/29/20 Unknown Rx paroxetine HCl 40 mg tablet 40 mg PO DAILY #30 tab 12/19/19 09/29/20 Unknown Rx clonidine HCl 0.1 mg tablet 0.1 mg PO DAILY #60 tab 01/25/20 09/29/20 Unknown Rx mirtazapine [Remeron] 15 mg PO BEDTIME 09/29/20 09/29/2009/27/21 History quetiapine [Seroquel] 50 mg PO BEDTIME 09/29/20 09/29/20 09/27/20 History quetiapine [Seroquel] 200 mg PO BEDTIME 09/29/20 09/29/20 09/27/20 History trazodone 100 mg PO BEDTIME 09/29/20 09/29/20 09/27/20 History Allergies Allergy/AdvReac Type Severity Reaction Status Date / Time No Known Allergies Allergy Verified 08/03/19 11:34 PFSH NPU PFSH: Medical History Agoraphobia with panic disorder Generalized anxiety disorder Major depressive disorder, recurrent, moderate Right bundle branch block (RBBB) on electrocardiogram (ECG) Schizophrenia ST elevation Family History Grandfather Diabetes Social History Smoking and tobacco status: current every day smoker cigarettes Packs smoked per day: 0.25 Years cigarettes smoked: 4 Quit status (tobacco): has tried quititng Second hand smoke exposure: Yes (mother and stepfather) Smoking risk assessment/counseling performed?: Yes Alcohol intake: former Adopted: No Caregiver/support person: No Lives independently: No Household members: other Details: Mother, Step father, 4 brothers Housing: House Marital status: Single Number of children: 0 Number of grandchildren: 0 Highest education level completed: GED or Equivalent Education level details: 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 service: No Current occupational status: unemployed Pets and animals: No History of recent travel: No Leisure activites: exercise Sexually active: No Current gender identity: Male Ashley/Yazidism: Unknown Special ashley needs: No Agree to transfusion: Yes Financial difficulty paying for basics: Somewhat Hard Other Psychiatric History: Other Psychiatric History: Reports that he currently sees a psychiatrist in [place] on a monthly basis Reports last psychiatric hospitalization was approximately 5 to 6 months ago, reports a couple of previous psychiatric hospitalizations Reports last suicide attempt by overdose 5 to 6 months ago prior to his hospitalization Mental Status Exam MSE Comments: Appears younger than stated age, somewhat immature in his interactions, smiling inappropriately at times, sitting on his bed, calm, cooperative, interactive, polite, good eye contact Psychomotor activity is neither increased nor decreased, no agitation Speech is somewhat slow at times but otherwise normal rate, normal volume, spontaneous, clear articulation, not pressured I feel okay, per above, smiling inappropriately through most of the interview, not labile Alert and oriented to person, place, time, situation Memory and concentration appear to be fair per interview Intellectual functioning appears to be average at best, possibly below average, no formal testing, per vocabulary, interview Thought process, occasional delays, linear, no flight of ideas, no looseness of associations Thought content, no delusions, no hallucinations, no suicidal or homicidal ideation Insight and judgment appear to be fair Vitals/I&O/Wt Last Vital Signs Temp 98.4 F 09/29/20 13:12 Pulse 78 09/29/20 13:12 Resp 18 09/29/20 13:12 BP 120/73 09/29/20 13:12 Pulse Ox 98 09/29/20 13:12 Weight last 48 hrs Weight 108.862 kg Data NPU : 09/28/20 20:15 09/28/20 20:15 A&P Assessment and plan (1) Suicidal ideation: Status: Acute (2) Depression: Status: Acute Qualifiers: Depression Type: unspecified Qualified Code(s): F32.9 - Major depressive disorder, single episode, unspecified (3) Generalized anxiety disorder: Status: Acute (4) Schizophrenia: Status: Acute Qualifiers: Schizophrenia type: unspecified Qualified Code(s): F20.9 - Schizophrenia, unspecified Additional A&P Information Patient with history of schizophrenia, major depressive disorder, generalized anxiety disorder presenting with worsening suicidal ideation, difficulty with sleep, depressive symptoms. Patient also reports multiple stressors which exacerbate his symptoms. VOLUNTARY ADMIT to inpatient psychiatry INCREASE to mirtazapine 30 mg at bedtime targeting depressive symptoms, sleep INCREASE to quetiapine 400 mg at bedtime targeting mood, sleep DISCONTINUE paroxetine 40 mg daily, concerns about combined anticholinergic effects with mirtazapine possibly contributing to poor sleep DISCONTINUE olanzapine Encourage patient to participate in unit activities, unit milieu Coordinate with social media job titles for post discharge care Involuntary Hold Information 96 Hour Hold: 96 Hour Involuntary Admission: No Attestations NPU Medical Necessity Statement*: Require psychiatric hospitalization for medic ation stabilization, coordination for safe discharge Anticipate hospital stay to exceed 2 midnights Time Spent in Patient Care: Greater than 35 minutes (>than 50% of time spent in counselling and/or direct pt care on unit) . Coding Level of Care Code Acute Sort Operations Supervisor for Juan J Fwd Diagnoses Suicidal ideation R45.851 Depression F32.9 Depression Type: unspecified Generalized anxiety disorder F41.1 Schizophrenia F20.9 Schizophrenia type: unspecified
--- NOTE | 2020-09-29 13:40 | PC.RESP ---
Smoking Cessation information sent to patient.
[2020-09-29] MEDS: loperamide 2 mg Capsule PO (19:31)
[2020-09-29] MEDS: trazodone 100 mg Tablet PO (19:31)
[2020-09-29] MEDS: mirtazapine 15 mg Tablet 30 MG PO (19:31)
[2020-09-29 19:37] VITALS: BP 128/68; PULSE 78; RESP 16; TEMP 36.9; O2SAT 93
--- NOTE | 2020-09-29 20:35 | PC.NURSE ---
Patient having diarrhea today.Requesting anti- diarrheal. 2mg Imodium PO given.
[2020-09-30 06:00] VITALS: BP 112/65; PULSE 69; RESP 18; TEMP 37.2; O2SAT 96
[2020-09-30 08:20] VITALS: BP 112/65
[2020-09-30] MEDS: cloNIDine 0.1 mg Tablet PO (08:20)
[2020-09-30] MEDS: nicotine 2 mg Gum BUCCAL ×3 (11:36→19:12)
[2020-09-30 12:50] VITALS: BP 128/72; PULSE 90; RESP 18; TEMP 36.6; O2SAT 98
--- NOTE | 2020-09-30 14:51 | PM.NPN ---
Subjective NPU Subjective: Interval history: Patient reports some depressive symptoms but states that he has had no interval suicidal ideation Denies any interval auditory or visual hallucinations, denies any delusions Reports improved sleep States that his appetite is been good Reports being compliant with medication, denies any medication side effects COLLATERAL: Dr. Roman, patient's psychiatrist, patient's psychiatrist states that he had been stable on his current medication regimen which included Remeron, Seroquel, monthly Invega injections. Patient psychiatry states that he was aware of some family dynamics and stressors. He reports that the patient can do a walk-in appointment post discharge anytime this week. Mental Status Exam MSE Comments: Lying in bed, appropriately groomed and dressed, calm, cooperative, interactive, good eye contact Psychomotor activity is neither increased nor decreased, no agitation Speech is somewhat slow at times but otherwise normal rate, normal volume, spontaneous, clear articulation, not pressured I feel pretty good, congruent, not labile Alert and oriented to person, place, time, situation Memory and concentration appear to be fair per interview Thought process, occasional delays, linear, no flight of ideas, no looseness of associations Thought content, no delusions, no hallucinations, no suicidal or homicidal ideation Insight and judgment appear to be fair Vitals/I&O/Wt Last Vital Signs Temp 97.9 F 09/30/20 12:50 Pulse 90 09/30/20 12:50 Resp 18 09/30/20 12:50 BP 128/72 09/30/20 12:50 Pulse Ox 98 09/30/20 12:50 Weight last 48 hrs Weight 108.862 kg Data NPU : 09/28/20 20:15 09/28/20 20:15 A&P Assessment and plan (1) Suicidal ideation: Status: Acute (2) Schizophrenia: Status: Acute Qualifiers: Schizophrenia type: unspecified Qualified Code(s): F20.9 - Schizophrenia, unspecified (3) Generalized anxiety disorder: Status: Acute (4) Depression: Status: Acute Qualifiers: Depression Type: unspecified Qualified Code(s): F32.9 - Major depressive disorder, single episode, unspecified Additional A&P Information Reports intermittent depressive symptoms and anxiety symptoms related to current life circumstances, living arrangement reports overall improvement, denies any interval psychotic symptoms, denies any interval suicidal ideation CONTINUE current medication, continue to monitor Involuntary Hold Information 96 Hour Hold: 96 Hour Involuntary Admission: No Attestations NPU Medical Necessity Statement*: Require psychiatric hospitalization for medication stabilization, coordination for safe discharge Coding Level of Care Code 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
[2020-09-30 19:37] VITALS: BP 136/98; PULSE 84; RESP 18; TEMP 36.3; O2SAT 94
[2020-09-30] MEDS: trazodone 100 mg Tablet PO (20:37)
[2020-09-30] MEDS: mirtazapine 15 mg Tablet 30 MG PO (20:38)
[2020-09-30] MEDS: loperamide 2 mg Capsule PO (20:38)
--- NOTE | 2020-09-30 20:38 | PC.NURSE ---
Patient continues to loose bowel movements. 2mg Imodium PO given. Patient stated that it's better than yesterday .
--- NOTE | 2020-09-30 21:38 | PC.NURSE ---
PM ASSESSMENT PT DENIES PAIN, DENIES AH/VH, DENIES SI/HI. REQUESTED TOILETRIES FOR A SHOWER, SMILING/INTERACTS APPROPRIATELY WITH STAFF. PT DENIES ANXIETY AND DECREASE IN DEPRESSED MOOD. PT DID CONTRACT TO SAFETY IF SI RETURNS. WILL CONTINUE TO OBSERVE PATIENT TO MEET PT NEEDS
[2020-10-01 06:00] VITALS: BP 121/78; PULSE 93; RESP 17; TEMP 36.8; O2SAT 94
[2020-10-01 08:26] VITALS: BP 121/78
[2020-10-01] MEDS: cloNIDine 0.1 mg Tablet PO (08:26)
[2020-10-01] MEDS: nicotine 2 mg Gum BUCCAL (08:54)
--- NOTE | 2020-10-01 10:05 | P.DS_ITS ---
Diagnoses at Discharge Discharge Diagnosis (1) Suicidal ideation: Status: Acute (2) Schizophrenia: Status: Acute Qualifiers: Schizophrenia type: unspecified Qualified Code(s): F20.9 - Schizophrenia, unspecified (3) Generalized anxiety disorder: Status: Acute (4) Depression: Status: Acute Qualifiers: Depression Type: unspecified Qualified Code(s): F32.9 - Major depressive disorder, single episode, unspecified Reason for Visit Reason for Visit: SI Hospital Course Hospital Course 25 year old male with a history of schizophrenia, major depressive disorder, generalized anxiety disorder presented to the emergency department with suicidal ideation although he reports having chronic passive suicidal ideation with a past attempt 5 to 6 months ago leading to a hospitalization in [place]. Patient initially continued to endorse passive suicidal thoughts with some depressive symptoms which she attributed to ongoing strain with his stepdad. Patient quickly reconstituted denying any depressive symptoms and denying any suicidal ideation but had been reporting some difficulty with sleep and intermittent anxiety and mood symptoms. Mirtazapine was increased to mirtazapine 30 mg at bedtime and quetiapine increased to quetiapine 4 mg at bedtime with good effect and no reports of any medication side effects. Patient participated in unit activities to include group sessions and unit milieu with no reports of any behavioral disturbances. Patient was not suicidal and denied any psychotic symptoms at the time of discharge and did not appear to pose an imminent threat of harm to self or others. Low to moderate risk of harm to self or others given no current suicidal ideation and no psychotic symptoms or any psychiatric symptoms although patient's risk may be elevated if he is noncompliant with his treatment or uses substances and alcohol leading to unexpected, impulsive behavior. Risk mitigation included psychiatric hospitalization, medication stabilization, recommendation to abstain from the use of any substances and alcohol as well as the need to maintain compliance with his medication and medication management follow-up. Patient was able to communicate his understanding of the need to co ntinue abstaining from the use of any substances and alcohol as well as the need for compliance with his medication medication management follow-up in order to further mitigate his risk of harm to self and others. Involuntary Hold Information 96 Hour Hold: 96 Hour Involuntary Admission: No Mental Status Exam MSE Comments: Appropriately groomed and dressed, appears stated age, lying in bed, polite, interactive, good eye contact Psychomotor activity is neither increased nor decreased, no agitation Speech is somewhat slow at times but otherwise normal rate, normal volume, spontaneous, clear articulation, not pressured Good, congruent, not labile Alert and oriented to person, place, time, situation Memory and concentration appear to be fair per interview Thought process, occasional delays, linear, no flight of ideas, no looseness of associations Thought content, no delusions, no hallucinations, no suicidal or homicidal ideation Insight and judgment appear to be fair Discharge Data Vitals: Last Vital Signs Temp 98.2 F 10/01/20 06:00 Pulse 93 10/01/20 06:00 Resp 17 10/01/20 06:00 BP 121/78 10/01/20 08:26 Pulse Ox 94 10/01/20 06:00 Discharge Plan Discharge Patient Disposition: Home Condition: Stable Prescriptions: New mirtazapine 15 mg Tablet 30 mg PO BEDTIME Qty: 30 RF: 0 quetiapine 400 mg Tablet 400 mg PO BEDTIME Qty: 30 RF: 0 Continued clonidine HCl 0.1 mg tablet 0.1 mg PO DAILY Qty: 60 RF: 1 trazodone 100 mg PO BEDTIME RF: 0 Discontinued olanzapine [Zyprexa] 20 mg tablet 20 mg PO .at bedtime Qty: 30 RF: 2 paroxetine HCl [Paxil] 40 mg tablet 40 mg PO DAILY Qty: 30 RF: 2 quetiapine [Seroquel] 200 mg Tablet 200 mg PO BEDTIME RF: 0 mirtazapine [Remeron] 15 mg Tablet 15 mg PO BEDTIME RF: 0 quetiapine [Seroquel] 50 mg Tablet 50 mg PO BEDTIME RF: 0 Discharge Orders: Discharge Order (Routine); Ordered 10/01/20 Ordered By: Maryan Yuen Referrals: [facility] [Other] - 10/06/20 11:20 am (You will be seeing Dr. Roman for a hospital follow up appointment on TuesdayOctober 06 at 11:20 AM Via Phone visit. If you need to be seen sooner you may go for a walk in. 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
[2020-10-01 10:10] VITALS: BP 121/78
== END 2020-10-01 11:59 | disposition home or self-care (01) | DRG 885 ==
LOC: ER 21:16 → NP 22:00
PROVIDERS: Admitting Provider Psychiatry & Neurology Psychiatry; Emergency Provider Family Medicine; Visit Provider Psychiatry & Neurology Psychiatry
DX: F20.9 Schizophrenia, unspecified (principal); R45.851 Suicidal ideations; F32.9 Major depressive disorder, single episode, unspecified; F41.1 Generalized anxiety disorder; F40.01 Agoraphobia with panic disorder; I45.10 Unspecified right bundle-branch block; F17.210 Nicotine dependence, cigarettes, uncomplicated
CPT/HCPCS: 80053; 80306; 80307; 81003; 84443; 85025; 93005; 99283; 99285

== ENCOUNTER 2021-05-13 13:30 | Inpatient (IN) | payer MEDICAID, SELFPAY ==
[2021-05-13 13:35] VITALS: BP 129/88; PULSE 77; RESP 17; O2SAT 96; BMI 33.5
--- NOTE | 2021-05-13 14:05 | ECG_ITS ---
[facility] Test Date: 2021-05-13 Pat Name: Luis Fernando Hanley Department: Room: Gender: Male Medical Records Field Technician: : 1995 Requested By: Kaiser Reyes Order Number: [id number] Sesay MD: Isael Garibay M.D. Measurements Intervals [place] Rate: 64 P: 33 [place]: 153 QRS: -48 QRSD: 106 T: 34 QT: 318 QTc: 328 Interpretive Statements SINUS RHYTHM INCOMPLETE RIGHT BUNDLE BRANCH BLOCK [90+ ms QRS DURATION, TERMINAL R IN V1/V2, 40+ ms S IN I/aVL/V4/V5/V6] LEFT ANTERIOR FASCICULAR BLOCK [QRS AXIS <= -45, QR IN I, RS IN II] NONSPECIFIC T-WAVE ABNORMALITY Compared to ECG 09/28/2020 21:15:19 Incomplete right bundle-branch block now present T-wave abnormality now present Right bundle-branch block no longer present Electronically Signed On 05-14-2021 17:11:52 CDT by Isael Garibay M.D. [email or web address]
--- NOTE | 2021-05-13 14:05 | W.ED.PSYCHS ---
HPI - Psych General: Chief Complaint: Psychiatric Symptoms Stated Complaint: 96: W/LAW ENFORCEMENT Time Seen by Provider: 05/13/21 13:34 History of Present Illness: HPI Narrative: 25-year-old male presents with suicidal ideation. By Police Department due to concern that he may harm himself. Denies any desire to harm anyone else. Does not have a concrete plan. Denies any hallucinations or delusions. Denies any focal medical complaint or focal pain. Review of Systems Narrative: - CONSTITUTIONAL: Denies weight loss, fever and chills. - HEENT: Denies changes in vision and hearing. - RESPIRATORY: Denies SOB and cough. - CV: Denies palpitations and CP. - GI: Denies abdominal pain, nausea, vomiting and diarrhea. - : Denies dysuria and urinary frequency. - MSK: Denies myalgia and joint pain. - SKIN: Denies rash and pruritus. - NEUROLOGICAL: Denies headache, weakness, numbness and syncope. - PSYCHIATRIC: As above [facility] ED PFSH: Medical History (Updated 05/13/21 @ 12:17 by Viviane Jaimes MD) Agoraphobia with panic disorder Generalized anxiety disorder Major depressive disorder, recurrent, moderate Psychiatric care Psychiatric care Right bundle branch block (RBBB) on electrocardiogram (ECG) Schizophrenia ST elevation Suicide ideation Family History Grandfather Diabetes Social History Smoking and tobacco status: current every day smoker cigarettes Packs smoked per day: 0.25 Years cigarettes smoked: 4 Quit status (tobacco): has tried quititng Second hand smoke exposure: Yes (mother and stepfather) Smoking risk assessment/counseling performed?: Yes Alcohol intake: former Adopted: No Caregiver/support person: No Lives independently: No Household members: other Details: Mother, Step father, 4 brothers Housing: House Marital status: Single Number of children: 0 Number of grandchildren: 0 Highest education level completed: GED or Equivalent Education level details: 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 service: No Current occupational status: unemployed Pets and animals: No History of recent travel: No Leisure activites: exercise Sexually active: No Current gender identity: Male Ashley/Druze: Unknown Special ashley needs: No Agree to transfusion: Yes Financial difficulty paying for basics: Somewhat Hard Physical Exam Narrative: EXAM NARRATIVE: - GENERAL: Alert and oriented x 3. No acute distress. Well-nourished. - EYES: EOMI. Anicteric. - HENT: Atraumatic, no C-spine tenderness. Moist mucous membranes. No scleral icterus. No cervical lymphadenopathy. - LUNGS: Clear to auscultation bilaterally. No accessory muscle use. Equal lung sounds bilaterally. No respiratory distress. - CARDIOVASCULAR: Regular rate and rhythm. No murmur. No JVD. - ABDOMEN: Soft, non-tender and non-distended. Negative CVA tenderness bilaterally, no rebound or guarding, negative King sign. No palpable masses. - EXTREMITIES: No edema. Non-tender. - SKIN: No rashes or lesions. Warm. - NEUROLOGIC: No meningismus or focal neurological deficits. CN II-XII grossly intact. - PSYCHIATRIC: Cooperative. Appropriate mood and affect. Course Vital Signs: Vital signs: Vital Signs Temperature 98.7 F 05/13/21 14:16 Pulse Rate 76 05/13/21 14:16 Respiratory Rate 18 05/13/21 14:16 Blood Pressure 130/87 05/13/21 14:16 Pulse Oximetry 97 05/13/21 14:16 MDM - Psych MDM Narrative: Medical decision making narrative: 25-year-old male presents with suicidal ideation. Has had similar history in the past and was previously hospitalized for this. Denies any focal pain or focal medical complaint. Lab work unremarkable. Discussed with psychiatry and they agreed patient would benefit from admission. Patient admitted in stable condition. Further evaluation management per psychiatry team. Lab Data: Labs: Lab Results 05/13/21 05/13/21 05/13/21 14:47 14:47 14:47 WBC 8.6 10^3/uL 10^3/ uL (4.0-10.0) RBC 5.81 10^6/uL H 10 ^6/uL (4.1-5.3) Hgb 16.0 g/dL g/dL (11.7-16.6) Hct 49.3 % % (42.0-52.0) MCV 84.9 fl fl (80-94) MCH 27.5 pg L pg (28.0-34.0) MCHC 32.5 g/dL g/dL (30.0-36.0) RDW 12.4 % % (12.1-15.1) Plt Count 212 10^3/cmm 10^3 /cmm (130-400) MPV 10.8 fL H fL (7.4-10.4) Neut % (Auto) 80.2 % % Lymph % (Auto) 14.0 % % [place] % (Auto) 5.1 % % Eos % (Auto) 0.2 % % Baso % (Auto) 0.3 % % Neut # (Auto) 6.90 10^3/uL 10^3 /uL (1.8-7.7) Lymph # (Auto) 1.2 10^3/uL 10^3/ uL (0.8-4.8) [place] # (Auto) 0.4 10^3/uL 10^3/ uL (0.2-0.9) Eos # (Auto) 0.0 10^3/uL 10^3/ uL (0.0-0.8) Baso # (Auto) 0.0 10^3/uL 10^3/ uL (0.0-0.1) Nucleated RBC % (a uto) 0 % % Nucleated RBCs # 0.0 /100WBC /100W BC Sodium 140 mmol/L mmol/L (136-145) Potassium 4.0 mmol/L mmol/L (3.5-5.1) Chloride 104 mmol/L mmol/L (98-107) Carbon Dioxide 29 mmol/L mmol/L (22-29) Anion Gap 11.0 (5-19) BUN 7 mg/dL mg/dL (6-20) Creatinine 1.0 mg/dL mg/dL (0.7-1.2) GFR Calculation 111.1 mL/min mL/m in (90-130) Glucose 92 mg/dL mg/dL (65-115) Calculated Osmolal ity 288 mOsm/kg mOsm/ kg (285-295) Calcium 9.7 mg/dL mg/dL (8.5-10.5) Total Bilirubin 0.4 mg/dL mg/dL (0.15-1.2) AST 16 U/L U/L (0-40) ALT 15 U/L U/L (0-41) Alkaline Phosphata se 76 IU/L IU/L (40-130) Total Protein 6.9 g/dL g/dL (6.6-8.7) Albumin 4.7 g/dL g/dL (3.5-5.2) Globulin 2.2 g/dL g/dL (1.3-4.6) TSH 1.02 uIU/mL uIU/m L (0.27-4.20) Urine Color Yellow (Yellow) Urine Appearance Clear (CLEAR) Urine pH 6.5 (5-7) Ur Specific Gravit y 1.010 (1.005-1.030) Urine Protein Neg (Negative) Urine Glucose (UA) Norm (Normal) Urine Ketones 1+ H (Negative) Urine Blood Neg (Negative) Urine Nitrate Negative (Negative) Urine Bilirubin Neg (Negative) Urine Urobilinogen Norm mg/dL mg/dL (Negative) Ur Leukocyte Gaby ase Negative (Negative) Salicylates < 0.3 mg/dL L mg/ dL (3-10) Urine Opiates Scre en Acetaminophen < 5.0 ug/mL L ug/ mL (10-30) Ur Barbiturates Sc reen Ur Phencyclidine S crn Ur Amphetamines Sc reen U Benzodiazepines Scrn Urine Cocaine Scre en U Marijuana (THC) Screen Ethyl Alcohol < 10 mg/dL mg/dL (0-10) 05/13/21 14:47 WBC RBC Hgb Hct MCV MCH MCHC RDW Plt Count MPV Neut % (Auto) Lymph % (Auto) [place] % (Auto) Eos % (Auto) Baso % (Auto) Neut # (Auto) Lymph # (Auto) [place] # (Auto) Eos # (Auto) Baso # (Auto) Nucleated RBC % (a uto) Nucleated RBCs # Sodium Potassium Chloride Carbon Dioxide Anion Gap BUN Creatinine GFR Calculation Glucose Calculated Osmolal ity Calcium Total Bilirubin AST ALT Alkaline Phosphata se Total Protein Albumin Globulin TSH Urine Color Urine Appearance Urine pH Ur Specific Gravit y Urine Protein Urine Glucose (UA) Urine Ketones Urine Blood Urine Nitrate Urine Bilirubin Urine Urobilinogen Ur Leukocyte Gaby ase Salicylates Urine Opiates Scre en Negative ng/mL ng /mL (Negative) Acetaminophen Ur Barbiturates Sc reen Negative ng/mL ng /mL (Negative) Ur Phencyclidine S crn Negative ng/mL ng /mL (Negative) Ur Amphetamines Sc reen Negative ng/mL ng /mL (Negative) U Benzodiazepines Scrn Negative ng/mL ng /mL (Negative) Urine Cocaine Scre en Negative ng/mL ng /mL (Negative) U Marijuana (THC) Screen Negative ng/mL ng /mL (Negative) Ethyl Alcohol EKG Data^: EKG 1: Other EKG comments: Sinus rhythm rate of 64, incomplete right bundle branch block, left anterior fascicular block, no sign of acute ischemia or other acute abnormality. 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
[2021-05-13 14:16] VITALS: BP 130/87; PULSE 76; RESP 18; TEMP 37.1; O2SAT 97
[2021-05-13 14:58] LABS: Add Urine Microscopic? NO; Charge for UA Resulting for Rev
[2021-05-13 15:01] LABS: Basophils % 0.3 %; Eosinophils % 0.2 %; Hematocrit 49.3 % (42.0-52.0); Lymphocytes # 1.2 10^3/uL (0.8-4.8); Mean Corpuscular HGB Conc 32.5 g/dL (30.0-36.0); Mean Corpuscular Hemoglobin 27.5 pg (28.0-34.0); Mean Corpuscular Volume 84.9 fl (80-94); Mean Platelet Volume 10.8 fL (7.4-10.4); Monocytes # 0.4 10^3/uL (0.2-0.9); Monocytes % 5.1 %; Neutrophils % 80.2 %; Nucleated Red Blood Cells % 0 %; Platelet Count 212 10^3/cmm (130-400); Red Blood Count 5.81 10^6/uL (4.1-5.3); Red Cell Distribution Width 12.4 % (12.1-15.1); White Blood Count 8.6 10^3/uL (4.0-10.0)
[2021-05-13 15:18] LABS: Bilirubin Urine Neg (Negative); Blood Urine Neg (Negative); Glucose Urine UA Norm (Normal); Ketones Urine 1+ (Negative); Nitrate Urine Negative (Negative); Protein Urine Neg (Negative); Urine Appearance Clear (CLEAR); Urine Color Yellow (Yellow); pH Urine 6.5 (5-7)
[2021-05-13 15:19] LABS: Leukocyte Esterase Urine Negative (Negative); Urobilinogen Urine Norm (Negative)
[2021-05-13 15:22] LABS: Amphetamines Screen Urine Negative (Negative); Barbiturates Screen Urine Negative (Negative); Benzodiazepines Screen Urine Negative (Negative); Cocaine Screen Urine Negative (Negative); Opiate Screen Urine Negative (Negative); PCP Screen Urine Negative (Negative); THC Screen Urine Negative (Negative)
[2021-05-13 15:30] LABS: Alanine Aminotransferase 15 U/L (0-41); Albumin Level 4.7 g/dL (3.5-5.2); Alkaline Phosphatase 76 IU/L (40-130); Aspartate Amino Transferase 16 U/L (0-40); Blood Urea Nitrogen 7 mg/dL (6-20); Calcium 9.7 mg/dL (8.5-10.5); Carbon Dioxide 29 mmol/L (22-29); Chloride 104 mmol/L (98-107); Globulin 2.2 g/dL (1.3-4.6); Glomerular Filtration Rate 111.1 mL/min (90-130); Glucose 92 mg/dL (65-115); Osmolality Calculated 288 mOsm/kg (285-295); Sodium 140 mmol/L (136-145); Thyroid Stimulating Hormone 1.02 uIU/mL (0.27-4.20); Total Bilirubin 0.4 mg/dL (0.15-1.2); Total Protein 6.9 g/dL (6.6-8.7)
[2021-05-13 15:32] LABS: Acetaminophen < 5.0 ug/mL (10-30); Alcohol Level < 10 mg/dL (0-10); Salicylate < 0.3 mg/dL (3-10)
[2021-05-13 18:02] VITALS: BP 132/78; PULSE 74; O2SAT 99
--- NOTE | 2021-05-13 18:44 | PC.NURSE ---
Pt report called to the floor with Arabella IYER. Needs time before transport.
[2021-05-13 18:55] VITALS: O2SAT 99
[2021-05-13 19:22] VITALS: BP 121/80; PULSE 77; RESP 18; TEMP 36.2; O2SAT 96
--- NOTE | 2021-05-13 21:00 | PC.ADMIT ---
[address] [facility] Admission Note: The patient,Luis Fernando Hanley,25 y/o, was given written information regarding hospital policies, unit procedures and contact persons. Patient's smoking status: current every day smoker. Vital Signs - 8 hr 05/13/21 18:02 05/13/21 18:55 05/13/21 19:22 Temperature 97.2 F L Pulse Rate 77 Pulse Rate [Monitor] 74 Respiratory Rate 18 Blood Pressure 121/80 Blood Pressure [Left Arm] 132/78 Pulse Oximetry 99 99 96
[2021-05-13] MEDS: nicotine 2 mg Gum BUCCAL (22:13)
--- NOTE | 2021-05-13 23:05 | PC.ADMIT ---
[address] [facility] Admission Note: The patient,Luis Fernando Hanley,25 y/o, was given written information regarding hospital policies, unit procedures and contact persons. Patient's smoking status: current every day smoker. Vital Signs - 8 hr 05/13/21 18:02 05/13/21 18:55 05/13/21 19:22 Temperature 97.2 F L Pulse Rate 77 Pulse Rate [Monitor] 74 Respiratory Rate 18 Blood Pressure 121/80 Blood Pressure [Left Arm] 132/78 Pulse Oximetry 99 99 96 Patient states he has been living in a homeless prison in [place], [place] for the last several months. He recently came to stay with his grandparents her locally. He states increased depression and SI over the last few months. He went to [place] [facility] office today and reported that he has been having some SI. He then tried to leave the building to go for a walk. He states that they then called PD to come and pick him up due to his suicidal statement. PD brought patient to ER for psych eval. Patient states he has not been on any medications for several months. He does state that he has been a patient at this facility before. He reports more than 10 psych admissions since age 21. He denies any use of alcohol or illicit drugs. Patient states he was previously diagnosed with Paranoid Schizophrenia..then states but I don't think I have it, I'm really not paranoid. Patient is a fair historian and cooperative with assessment. He does state he has had 1 suicide attempt in the past where he overdosed on Klonopin and Paxil. He was treated in the ER then admitted to a psych facility in somewhere for a couple of days. He states that he has good support from his Mother and he hopes to stay with her eventually. Patient states he is trying to get on disability because he can't work due to his illness. Skin assessment is unremarkable. Patient changed into cotton scrubs and provided drink and snack. Patient then went to day room to watch tv. He has been social with peers and friendly with staff. Will continue to monitor and follow plan of care. Q 15 min safety checks per protocol.
[2021-05-14] MEDS: trazodone 50 mg Tablet PO (00:15)
[2021-05-14 06:00] VITALS: BP 108/82; PULSE 66; RESP 18; O2SAT 97
[2021-05-14] MEDS: nicotine 2 mg Gum BUCCAL ×2 (11:50→15:54)
--- NOTE | 2021-05-14 12:13 | NPU.GN ---
[facility] Group Topic:Meditation/ Depression Kiki General Mood of Group: Luis Fernando did not attend group today.
[2021-05-14 14:00] VITALS: BP 138/92; PULSE 87; RESP 16; TEMP 36.4; O2SAT 98
--- NOTE | 2021-05-14 14:10 | W.PM.NPUH&PS ---
Providers/Chief Complaint Admitting Physician: Carmelo Avila MD Chief Complaint: 96: W/LAW ENFORCEMENT HPI NPU History of Present Illness Luis Fernando Hanley is a 25 year old male who presented to the emergency department with the following report: Chief Complaint: Psychiatric Symptoms Stated Complaint: 96: W/LAW ENFORCEMENT Time Seen by Provider: 05/13/21 13:34 History of Present Illness: HPI Narrative: 25-year-old male presents with suicidal ideation. By [employer] due to concern that he may harm himself. Denies any desire to harm anyone else. Does not have a concrete plan. Denies any hallucinations or delusions. Denies any focal medical complaint or focal pain. He is admitted to the neuropsychiatric unit for definitive treatment of those issues. He presents today reporting that he has been hospitalized a lot of times in his life due to may need to recall. He reports the last time he was at a hospital was about a week ago in [place] but was not admitted. He denies outpatient services but is clearly confused because documentation of outpatient services at [facility] has been in the system as recently as 05/13/2021. He appears to be a questionable historian with some factual pieces seeming consistent with previous notes and other parts being inconsistent however he does not appear to have a motive did not answer the questions authentically. An excerpt is March 07, 2019 evaluation with this newswriter as below for context. He reports that recently he had not been on medication. But Klonopin, on Seroquel trazodone were recently reconciled an appointment he had yesterday. He endorses he smokes about a pack of cigarettes a day, denies alcohol marijuana or any other illicit drug use. He reports that he does not have suicidal thoughts that would not stop. He reports that he has been staying at his mom's house but also he had gone to [place] hopes he would get a job, but that did not work and he was staying at [facility] [place]. He reports that his mom is about improved with the job he is liking it was in [place]. His goal is to get a job and live on his own. He reports he had 1 suicide attempt about a year or 2 ago. He denies any major changes in psychosocial history. Per his [facility] inpatient psychiatric evaluation 02/27/2019: Date of Service: Feb 27, 2019 Chief Complaint: Feeling depressed and suicidal. HPI: Patient presents today as a fairly poor historian. He reports that he has been feeling suicidal for weeks and was recently discharged from the hospital. He reports that he had no difficulties as a teen and that at 15 years old he started experimenting with alcohol and marijuana mostly marijuana. There was a point where he was smoking marijuana daily. He reports that he has since 19 stopped using essentially any drugs of abuse. He reports that he has been staying with his grandparents recently and has just had increasing levels of feelings of hopelessness, helplessness, worthlessness, feeling suicidal and having anxiety. Having depression. He is unclear if there are any contributing factors or reasons why he is feeling this way. He does report a significant period of homelessness before he recently moved in with his maternal grandparents. He reports that he was kicked out by his mother when he turned 19 and that he had been homeless for the last almost 4 years. He can give no clear information on her description of why he was unable to get a job or get his footing. He denies most symptoms of psychosis but ultimately does report some paranoia and confusion. Per ED eval: HISTORY OF PRESENT ILLNESS Chief Complaint: ANXIOUS and SUICIDAL THOUGHTS. This started 3 weeks ago. (23 yo Male presents to ED with complaints of anxiety and suicidal ideations. Pt states that he has been feeling like life is meaningless and he has been thinking about killing himself. Pt states that he has had paranoid schizophrenia and anxiety in the past. Pt states that he is not hearing any voices right now.). No situational problems or recent drug use or alcohol consumption. He has not exhibited a behavior change, was not found wandering and is compliant with medication. Has had suicidal thoughts but been eating or sleeping or not been depressed. He has had anxiety. No anger, unusual behavior, paranoia, delusions or self-injury inflicted. No hallucinations. The symptoms are described as mild. No injury is present. Similar symptoms previously. Recent medical care: Seen for in ED on 08/03/18 for [facility] DX Paranoid Schizophrenia. REVIEW OF SYSTEMS No headache, dizziness, weakness, chest pain or palpitations. No abdominal pain, vomiting, diarrhea, black stools or numbness. No fever, sore throat, cough, difficulty breathing or urinary frequency. No skin rash, enlarged lymph nodes, joint pain, weight loss or laceration. All other systems reviewed and are negative. PAST HISTORY See nurses notes. ( PCP-none). Anxiety. Bipolar disorder. Schizophrenia. Surgeries: No history of previous surgery. SOCIAL HISTORY Smoker- current status unknown (Chews tobacco). Never smoker. Occasional alcohol use. Last drink was 24 to 48 hours ago. No drug use. ADDITIONAL NOTES The nursing notes have been reviewed. PHYSICAL EXAM Vital Signs: 02/26/2019 17:04 BP: 137/79. HR: 70. RR: 20. O2 saturation: 96%. Temp: 97.8 F. Appearance: Alert. No acute distress. Appearance is normal. Eyes: Pupils equal, round and reactive to light. Neck: Normal inspection. Neck supple. CVS: Normal heart rate and rhythm. Heart sounds normal. Respiratory: Breath sounds normal. Chest nontender. Abdomen: Soft and nontender. Back: No tenderness. Skin: Skin warm and dry. Normal skin color. Normal skin turgor. Extremities: Extremities exhibit normal ROM. No lower extremity edema. Psych / Neuro: Oriented X 3. Mood and affect normal. Speech normal. Cognition normal. Thought process normal. He expresses suicidal thoughts. Insight and judgement normal. Cranial nerves normal (as tested). No cerebellar findings. No motor deficit. No sensory deficit. Reflexes normal. Allergies: Coded Allergies: NO KNOWN ALLERGIES (Unverified , 08/03/18) Active Meds: Current Hospital Medications: Medications (Trade) Dose Ordered Sig/Cristian Route PRN Reason Start Time Stop Time Status Last Admin Dose Admin Lorazepam (Ativan Tab) 0.5 mg Q4H PRN PO FOR MILD ANXIETY 02/26/19 19:00 Lorazepam (Ativan Tab) 1 mg Q4H PRN PO FOR MODERATE ANXIETY 02/26/19 19:00 Lorazepam (Ativan Tab) 2 mg Q4H PRN PO FOR SEVERE ANXIETY 02/26/19 19:00 Lorazepam (Ativan Inj) 2 mg Q4H PRN IM For Severe Aggression 02/26/19 19:00 Haloperidol Lactate (Haldol Inj) 5 mg Q4H PRN IM Severe Aggression 02/26/19 19:00 Diphenhydramine HCl (Benadryl Inj) 50 mg ONCE PRN IV Severe Extrapyramidal Symptoms 02/26/19 19:00 Benztropine Mesylate (Cogentin Tab) 1 mg BID PRN PO Mild Extrapyramidal symptoms 02/26/19 19:00 Benztropine Mesylate (Cogentin Inj) 1 mg ONCE PRN IM Severe Extrapyramidal Symptom 02/26/19 19:00 Acetaminophen (Tylenol Tab) 650 mg Q4H PRN PO FOR MILD PAIN 02/26/19 19:00 Trazodone HCl (Trazodone) 50 mg BEDTIME PRN PO FOR SLEEP 02/26/19 19:00 Nicotine (Nicoderm Patch) 21 mg DAILY PRN TD FOR WITHDRAWAL 02/26/19 19:00 Nicotine Polacrilex (Nicotine Gum) 2 mg Q2H PRN PO Withdrawal 02/26/19 19:00 Haloperidol (Haldol Tab) 5 mg Q4H PRN PO For agitation 02/26/19 19:00 Lorazepam (Ativan Tab) 2 mg Q4H PRN PO FOR AGITATION 02/26/19 19:00 Clonazepam (Klonopin) 0.5 mg BID PO 02/26/19 22:00 02/27/19 09:39 Paroxetine HCl (Paxil) 20 mg DAILY PO 02/27/19 10:00 02/27/19 09:39 Olanzapine (Zyprexa Tab) 20 mg BEDTIME PO 02/26/19 22:00 02/26/19 21:17 Past Medical History Other Family Medical History: Significant mental health issues including schizophrenia. No suicide attempts. Other Past Social History: Developmental history: He reports she is a product of a normal . He reports he learned to walk and talk and met his developmental milestones on time. He denies having speech therapy, learning support, emotional support and special education classes. Psychosocial history: He reports that he the only product of the union between his mother and father who stayed together until he was about 3 years old. He endorses having 5 half-brothers through his mother and 3 1/2 brothers and a half sister through his father. He reports his childhood was good and he denies any emotional, physical or sexual abuse. He made it through the 10th grade in high school and got his GED when he was around 19 years old. He reports that he was really good in track had no additional training after high school. He is heterosexual and reports he is never really had a relationship. He has never been , he has no children, he is never been in the , and endorses being a Restorationism. His only work history was to the [employer] for about 6 months and he lives with his maternal grandparents. Meds NPU Home Medications Medication Instructions Recorded Confirmed Last Taken Type mirtazapine 30 mg PO BEDTIME 05/13/21 05/13/21 Unknown History quetiapine 400 mg PO BEDTIME 05/13/21 05/13/21 Unknown History trazodone 100 mg PO BEDTIME 05/13/21 05/13/21 Unknown History Allergies Allergy/AdvReac Type Severity Reaction Status Date / Time No Known Allergies Allergy Verified 05/13/21 15:32 PFSH NPU PFSH: Medical History (Updated 05/13/21 @ 12:17 by Viviane Jaimes MD) Agoraphobia with panic disorder Generalized anxiety disorder Major depressive disorder, recurrent, moderate Psychiatric care Psychiatric care Right bundle branch block (RBBB) on electrocardiogram (ECG) Schizophrenia ST elevation Suicide ideation Family History Grandfather Diabetes Social History Smoking and tobacco status: current every day smoker cigarettes Packs smoked per day: 0.25 Years cigarettes smoked: 4 Quit status (tobacco): has tried quititng Second hand smoke exposure: Yes (mother and stepfather) Smoking risk assessment/counseling performed?: Yes Alcohol intake: former Adopted: No Caregiver/support person: No Lives independently: No Household members: other Details: Mother, Step father, 4 brothers Housing: House Marital status: Single Number of children: 0 Number of grandchildren: 0 Highest education level completed: GED or Equivalent Education level details: 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 service: No Current occupational status: unemployed Pets and animals: No History of recent travel: No Leisure activites: exercise Sexually active: No Current gender identity: Male Ashley/Restorationism: Unknown Special ashley needs: No Agree to transfusion: Yes Financial difficulty paying for basics: Somewhat Hard Mental Status Exam MSE Comments: This is a obese -Senegalese male in hospital scrubs with limited grooming but adequate eye contact. No abnormal movements except for mild psychomotor retardation cooperative with exam and mild distress. Speech was limited and decreased rate and volume. Mood described as all right but tired affect congruent and odd. Thought process somewhat organized with some possible thought blocking. Thought content: Patient denied suicidal or homicidal ideation, there are no delusions reported and none was noted, he denied auditory visual hallucinations but at times seem to be attending to internal stimuli having a inappropriate smile at times. Attention and concentration were limited and memory was mostly reliable but at times not but none were formally tested. He is alert and oriented x3. Insight and judgment are limited impulse control is limited. Vitals/I&O/Wt Last Vital Signs Temp 97.5 F L 05/14/21 14:00 Pulse 87 05/14/21 14:00 Resp 18 05/14/21 14:00 BP 138/92 05/14/21 14:00 Pulse Ox 98 05/14/21 14:00 Weight last 48 hrs Weight 108.862 kg Data NPU : 05/13/21 14:47 05/13/21 14:47 A&P Assessment and plan (1) Suicide ideation: Status: Acute (2) Depression: Status: Acute Qualifiers: Depression Type: unspecified Qualified Code(s): F32.9 - Major depressive disorder, single episode, unspecified (3) Generalized anxiety disorder: Status: Acute (4) Schizophrenia: Status: Acute Qualifiers: Schizophrenia type: unspecified Qualified Code(s): F20.9 - Schizophrenia, unspecified (5) ST elevation: Status: Acute (6) Right bundle branch block (RBBB) on electrocardiogram (ECG): Status: Acute (7) Agoraphobia with panic disorder: Status: Acute (8) Major depressive disorder, recurrent, moderate: Status: Acute Additional A&P Information This is a 25-year-old -Senegalese male with a long history of mental health issues including schizophrenia and anxiety as well as depression who presents endorsing depression and suicidal thoughts on his current medication. 1. Continue current medication. We will consider starting Wellbutrin XL in the morning we will attempt to contact outpatient psychiatrist. 2. Continue every 15 minute checks for safety. 3. Encourage individual, group and milieu therapies. 4. Encourage sober living treatment after discharge at the highest level of care to which he is willing to commit. Involuntary Hold Information 96 Hour Hold: 96 Hour Involuntary Admission: No Attestations NPU Medical Necessity Statement*: Inpatient hospitalization is medically necessary and the clinically appropriate intervention at this time. We will monitor medication to make changes as indicated. Likely length of stay 3 to 5 days. 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
[2021-05-14] MEDS: quetiapine 300 mg Tablet PO (19:57)
[2021-05-14] MEDS: mirtazapine 15 mg Tablet 30 MG PO (20:02)
[2021-05-14] MEDS: trazodone 100 mg Tablet PO (20:02)
[2021-05-14 21:44] VITALS: BP 134/77; PULSE 67; RESP 18; O2SAT 97
[2021-05-15 06:00] VITALS: BP 126/81; PULSE 68; RESP 16; TEMP 36.5; O2SAT 98
[2021-05-15] MEDS: nicotine 2 mg Gum BUCCAL ×4 (12:03→21:14)
[2021-05-15 14:00] VITALS: BP 126/81; PULSE 84; RESP 20; TEMP 36.7; O2SAT 97
--- NOTE | 2021-05-15 14:04 | NPU.GN ---
[facility] Group Topic:Dice Breaker Psych Education General Mood of Group: Luis Fernando did not attend group this morning he wanted to sleep.
--- NOTE | 2021-05-15 18:24 | P.NPUPN_ITS ---
Subjective NPU Subjective: Interval history: Patient presents today reporting that he is doing better in relation to his thoughts. But he still appears very introspective and pensive. He reports that he feels safe in the hospital and we discussed the likelihood of discharge in the beginning of the week. He denied having any issues with this approach. He reported eating okay and sleeping a l ittle better. Mental Status Exam MSE Comments: This is a obese -Italian male in hospital scrubs with limited grooming but adequate eye contact. No abnormal movements except for mild psychomotor retardation. Cooperative with exam in mild distress. Speech was limited and decreased rate and volume. Mood described as okay affect pensive and odd. Thought process somewhat organized with some possible thought blocking. Thought content: Patient denied suicidal or homicidal ideation, there are no del usions reported and none was noted, he denied auditory visual hallucinations but at times seem to be attending to internal stimuli having a inappropriate smile at times. Attention and concentration were limited and memory was mostly reliable but at times not but none were formally tested. He is alert and oriented x3. Insight and judgment are limited impulse control is limited. Vitals/I&O/Wt Last Vital Signs Temp 98.1 F 05/15/21 22:00 Pulse 83 05/15/21 22:00 Resp 18 05/15/21 22:00 BP 95/66 05/15/21 22:00 Pulse Ox 98 05/15/21 22:00 Data NPU : 05/13/21 14:47 05/13/21 14:47 A&P Additional A&P Information (1) Suicide ideation: (2) Depression: (3) Generalized anxiety disorder: (4) Schizophrenia: (5) ST elevation: (6) Right bundle branch block (RBBB) on electrocardiogram (ECG): (7) Agoraphobia with panic disorder: (8) Major depressive disorder, recurrent, moderate: Additional A&P Information This is a 25-year-old -Italian male with a long history of mental health issues including schizophrenia and anxiety as well as depression who presents endorsing depression and suicidal thoughts on his current medication. 1. Continue current medication. We will consider starting Wellbutrin XL in the morning we will attempt to contact outpatient psychiatrist. 2. Continue every 15 minute checks for safety. 3. Encourage individual, group and milieu therapies. 4. Encourage sober living treatment after discharge at the highest level of care to which he is willing to commit. Involuntary Hold Information 96 Hour Hold: 96 Hour Involuntary Admission: No Attestations NPU 2 Medical Necessity Statement*: Inpatient hospitalization is medically necessary and the clinically appropriate intervention at this time. We will monitor medica tion to make changes as indicated. Likely length of stay 2-4 days. Coding Level of Care Code Acute Director Of Cardiology for [facility]
[2021-05-15] MEDS: trazodone 100 mg Tablet PO (20:27)
[2021-05-15] MEDS: quetiapine 300 mg Tablet PO (20:27)
[2021-05-15] MEDS: mirtazapine 15 mg Tablet 30 MG PO (20:27)
[2021-05-15 22:00] VITALS: BP 95/66; PULSE 83; RESP 18; TEMP 36.7; O2SAT 98
[2021-05-16 06:00] VITALS: RESP 17
--- NOTE | 2021-05-16 09:27 | P.NPUPN_ITS ---
Subjective NPU Subjective: Interval history: Patient presents today denying any major issues and reporting that the medication is working fine. He understands why he needs to be here to get himself back on track. We will work with the treatment team for plan for discharge and family still supportive and going to be a part of his continued stability. Mental Status Exam MSE Comments: This is a obese -South African male in hospital scrubs with limited grooming but adequate eye contact. No abnormal movements except for psychomotor retardation. Cooperative with exam in no acute distress. Speech was limited and decreased rate and volume. Mood described as okay affect pensive and odd. Thought process somewhat organized with some possible thought blocking. Thought content: Patient denied suicidal or homicidal ideation, there are no delusions reported and none was noted, he denied auditory visual hallucinations but at times seem to be attending to internal stimuli having a inappropriate smile at times. Attention and concentration were limited and memory was mostly reliable but at times not but none were formally tested. He is alert and oriented x3. Insight and judgment are limited impulse control is limited. Vitals/I&O/Wt Last Vital Signs Temp 98.1 F 05/15/21 22:00 Pulse 83 05/15/21 22:00 Resp 17 05/16/21 06:00 BP 95/66 05/15/21 22:00 Pulse Ox 98 05/15/21 22:00 Data NPU : 05/13/21 14:47 05/13/21 14:47 A&P Additional A&P Information (1) Suicide ideation: (2) Depression: (3) Generalized anxiety disorder: (4) Schizophrenia: (5) ST elevation: (6) Right bundle branch block (RBBB) on electrocardiogram (ECG): (7) Agoraphobia with panic disorder: (8) Major depressive disorder, recurrent, moderate: Additional A&P Information This is a 25-year-old -South African male with a long history of mental health issues including schizophrenia and anxiety as well as depression who presents endorsing depression and suicidal thoughts on his current medication. 1. Continue current medication. We will consider starting Wellbutrin XL, we will attempt to contact outpatient psychiatrist. 2. Continue every 15 minute checks for safety. 3. Encourage individual, group and milieu therapies. 4. Encourage sober living treatment after discharge at the highest level of care to which he is willing to commit. Involuntary Hold Information 96 Hour Hold: 96 Hour Involuntary Admission: No Attestations NPU Medical Necessity Statement*: Inpatient hospitalization is medically necessary and the clinically appropriate intervention at this time. We will monitor medication to make changes as indicated. Likely length of stay 2-4 days. Coding Level of Care Code Acute Physician/Internist for [facility]
[2021-05-16] MEDS: nicotine 2 mg Gum BUCCAL ×3 (11:54→22:15)
[2021-05-16 14:00] VITALS: BP 95/66; PULSE 83; RESP 17; TEMP 36.7; O2SAT 98
[2021-05-16] MEDS: trazodone 100 mg Tablet PO (20:31)
[2021-05-16] MEDS: mirtazapine 15 mg Tablet 30 MG PO (20:31)
[2021-05-16] MEDS: quetiapine 300 mg Tablet PO (20:31)
[2021-05-16 22:00] VITALS: BP 113/76; PULSE 90; RESP 17; TEMP 36.7; O2SAT 97
[2021-05-17 06:00] VITALS: RESP 17
[2021-05-17] MEDS: nicotine 2 mg Gum BUCCAL ×4 (11:15→21:03)
--- NOTE | 2021-05-17 13:38 | P.NPUPN_ITS ---
Subjective NPU Subjective: Interval history: Patient presents today reporting that he is doing okay. He seems to be more comfortable and less edgy per staff and observation. He reports he is eating and sleeping better and he is more interactive and less isolative. He feels like the medication is helping. Mental Status Exam MSE Comments: This is a obese -Gambian male in hospital scrubs with limited grooming but adequate eye contact. No abnormal movements except for psychomotor retardation. Cooperative with exam in no acute distress. Speech was limited and decreased rate and volume. Mood described as okay affect less irritable, pensive and odd. Thought process more organized with less pauses. Thought content: Patient denied suicidal or homicidal ideation, there are no delusions reported and none were noted, he denied auditory or visual hallucinations but seem to be attending to internal stimuli less. Attention and concentration were limited and memory was mostly reliable but none were formally tested. He is alert and oriented x3. Insight and judgment are limited impulse control is limited. Vitals/I&O/Wt Last Vital Signs Temp 98.1 F 05/16/21 22:00 Pulse 90 05/16/21 22:00 Resp 17 05/17/21 06:00 BP 113/76 05/16/21 22:00 Pulse Ox 97 05/16/21 22:00 Weight last 48 hrs Weight 108.862 kg Data NPU : 05/13/21 14:47 05/13/21 14:47 A&P Additional A&P Information (1) Suicide ideation: (2) Depression: (3) Generalized anxiety disorder: (4) Schizophrenia: (5) ST elevation: (6) Right bundle branch block (RBBB) on electrocardiogram (ECG): (7) Agoraphobia with panic disorder: (8) Major depressive disorder, recurrent, moderate: Additional A&P Information This is a 25-year-old -Gambian male with a long history of mental health issues including schizophrenia and anxiety as well as depression who presents endorsing depression and suicidal thoughts on his current medication. 1. Continue current medication. We will consider starting Wellbutrin XL, we will attempt to contact outpatient psychiatrist in the morning. 2. Continue every 15 minute checks for safety. 3. Encourage individual, group and milieu therapies. 4. Encourage sober living treatment after discharge at the highest level of care to which he is willing to commit. Involuntary Hold Information 96 Hour Hold: 96 Hour Involuntary Admission: No Attestations NPU Medical Necessity Statement*: Inpatient hospitalization is medically necessary and the clinically appropriate intervention at this time. We will monitor medication to make changes as indicated. Likely length of stay 1-3 days. 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
[2021-05-17 14:00] VITALS: BP 105/63; PULSE 103; RESP 20; TEMP 36.8; O2SAT 94
[2021-05-17] MEDS: quetiapine 300 mg Tablet PO (20:23)
[2021-05-17] MEDS: mirtazapine 15 mg Tablet 30 MG PO (20:23)
[2021-05-17] MEDS: trazodone 100 mg Tablet PO (20:23)
[2021-05-17 20:59] VITALS: BP 117/72; PULSE 63; RESP 17; TEMP 36.8; O2SAT 97
[2021-05-18 06:00] VITALS: BP 112/55; PULSE 82; RESP 14; TEMP 36.6; O2SAT 99
--- NOTE | 2021-05-18 11:54 | NPU.GN ---
[facility] Group Topic:Stressors Psych Education Worksheet General Mood of Group:Luis Fernando did not attend group this morning. This resume writer tried to engage with patient to discuss services after group but patient was still sleeping.
[2021-05-18] MEDS: nicotine 2 mg Gum BUCCAL ×3 (11:59→20:58)
[2021-05-18 14:00] VITALS: BP 94/58; PULSE 63; RESP 17; TEMP 36.9; O2SAT 95
--- NOTE | 2021-05-18 14:44 | P.NPUPN_ITS ---
Subjective NPU Subjective: Interval history: Patient presents today reporting that he was hopeful that he might be discharged today. We discussed the significant logistical issues that still remain. He confides that he had been not doing a great job of taking his medication before and so he is adjusting to having those medications back on track and is thinking much more clearly but we discussed the difficulties that are created with his nonadherence and that he alienated his family as his main support. He is working with the treatment team on some different discharge options. We discussed the possibility of discharge in the next 48 hours. Mental Status Exam MSE Comments: This is a obese -[place] male in hospital scrubs with limited grooming but adequate eye contact. No abnormal movements except for psychomotor retardation. Cooperative with exam in no acute distress. Speech was getting more spontaneous and decreased rate and volume. Mood described as a little better affect slightly subdued. Thought process more organized with less pauses. Thought content: Patient denied suicidal or homicidal ideation, there are no delusions reported and none were noted, he denied auditory or visual hallucinations but seem to be attending to internal stimuli less. Attention and concentration were limited and memory was mostly reliable but none were formally tested. He is alert and oriented x3. Insight and judgment are limited impulse control is limited. Vitals/I&O/Wt Last Vital Signs Temp 97.9 F 05/18/21 06:00 Pulse 82 05/18/21 06:00 Resp 14 05/18/21 06:00 BP 112/55 05/18/21 06:00 Pulse Ox 99 05/18/21 06:00 Weight last 48 hrs Weight 108.862 kg Data NPU : 05/13/21 14:47 05/13/21 14:47 A&P Additional A&P Information (1) Suicide ideation: (2) Depression: (3) Generalized anxiety disorder: (4) Schizophrenia: (5) ST elevation: (6) Right bundle branch block (RBBB) on electrocardiogram (ECG): (7) Agoraphobia with panic disorder: (8) Major depressive disorder, recurrent, moderate: Additional A&P Information This is a 25-year-old -Uruguayan male with a long history of mental health issues including schizophrenia and anxiety as well as depression who presents endorsing depression and suicidal thoughts on his current medication. 1. Continue current medication. 2. Continue every 15 minute checks for safety. 3. Encourage individual, group and milieu therapies. 4. Encourage sober living treatment after discharge at the highest level of care to which he is willing to commit. Involuntary Hold Information 96 Hour Hold: 96 Hour Involuntary Admission: No Attestations NPU 2 Medical Necessity Statement*: Inpatient hospitalization is medically necessary and the clinically appropriate intervention at this time. We will monitor medica tion to make changes as indicated. Likely length of stay 1-3 days. Coding Level of Care Code Acute Warranty Administrator for Jamal Bell
[2021-05-18 20:49] VITALS: BP 127/86; PULSE 78; RESP 15; TEMP 36.7; O2SAT 97
--- NOTE | 2021-05-19 02:54 | PC.NURSE ---
Pt refused all HS meds this night. Stated i was so groggy all morning. All i wanted to do is sleep.
[2021-05-19 05:57] VITALS: BP 104/58; PULSE 58; RESP 17; TEMP 36.9; O2SAT 98
--- NOTE | 2021-05-19 11:53 | NPU.GN ---
[facility] Topic:Grounding Thoughts, Coping Skills General Mood of Group: Luis Fernando did not attend group today.
[2021-05-19] MEDS: nicotine 2 mg Gum BUCCAL ×2 (13:01→17:42)
[2021-05-19 14:00] VITALS: BP 113/67; PULSE 90; RESP 17; TEMP 37.2; O2SAT 96
--- NOTE | 2021-05-19 15:42 | P.NPUDS_ITS ---
Diagnoses at Discharge Discharge Diagnosis (1) Suicide ideation: Status: Resolved (2) Depression: Status: Acute Qualifiers: Depression Type: unspecified Qualified Code(s): F32.9 - Major depressive disorder, single episode, unspecified (3) Generalized anxiety disorder: Status: Acute (4) Schizophrenia: Status: Acute Qualifiers: Schizophrenia type: unspecified Qualified Code(s): F20.9 - Schizophrenia, unspecified (5) ST elevation: Status: Acute (6) Right bundle branch block (RBBB) on electrocardiogram (ECG): Status: Acute (7) Agoraphobia with panic disorder: Status: Acute (8) Major depressive disorder, recurrent, moderate: Status: Acute Reason for Visit Reason for Visit: 96: W/LAW ENFORCEMENT Brief History: History of Present Illness Luis Fernando Hanley is a 25 year old male who presented to the emergency department with the following report: Chief Complaint: Psychiatric Symptoms Stated Complaint: 96: W/LAW ENFORCEMENT Time Seen by Provider: 05/13/21 13:34 History of Present Illness: HPI Narrative: 25-year-old male presents with suicidal ideation. By [employer] due to concern that he may harm himself. Denies any desire to harm anyone else. Does not have a concrete plan. Denies any hallucinations or delusions. Denies any focal medical complaint or focal pain. He is admitted to the neuropsychiatric unit for definitive treatment of those issues. He presents today reporting that he has been hospitalized a lot of times in his life due to may need to recall. He reports the last time he was at a hospital was about a week ago in [place] but was not admitted. He denies outpatient services but is clearly confused because documentation of outpatient services at [facility] has been in the system as recently as 05/13/2021. He appears to be a questionable historian with some factual pieces seeming consistent with previous notes and other parts being inconsistent however he does not appear to have a motive did not answer the questions authentically. An excerpt is March 07, 2019 evaluation with this appeals writer as below for context. He reports that recently he had not been on medication. But Klonopin, on Seroquel trazodone were recently reconciled an appointment he had yesterday. He endorses he smokes about a pack of cigarettes a day, denies alcohol marijuana or any other illicit drug use. He reports that he does not have suicidal thoughts that would not stop. He reports that he has been staying at his mom's house but also he had gone to [place] hopes he would get a job, but that did not work and he was staying at [employer]. He reports that his mom is about improved with the job he is liking it was in [place]. His goal is to get a job and live on his own. He reports he had 1 suicide attempt about a year or 2 ago. He denies any major changes in psychosocial history. Per his [facility] inpatient psychiatric evaluation 02/27/2019: Date of Service: Feb 27, 2019 Chief Complaint: Feeling depressed and suicidal. HPI: Patient presents today as a fairly poor historian. He reports that he has been feeling suicidal for weeks and was recently discharged from the hospital. He reports that he had no difficulties as a teen and that at 15 years old he started experimenting with alcohol and marijuana mostly marijuana. There was a point where he was smoking marijuana daily. He reports that he has since 19 stopped using essentially any drugs of abuse. He reports that he has been staying with his grandparents recently and has just had increasing levels of feelings of hopelessness, helplessness, worthlessness, feeling suicidal and having anxiety. Having depression. He is unclear if there are any contributing factors or reasons why he is feeling this way. He does report a significant period of homelessness before he recently moved in with his maternal grandparents. He reports that he was kicked out by his mother when he turned 19 and that he had been homeless for the last almost 4 years. He can give no clear information on her description of why he was unable to get a job or get his footing. He denies most symptoms of psychosis but ultimately does report some paranoia and confusion. Per ED eval: HISTORY OF PRESENT ILLNESS Chief Complaint: ANXIOUS and SUICIDAL THOUGHTS. This started 3 weeks ago. (23 yo Male presents to ED with complaints of anxiety and suicidal ideations. Pt states that he has been feeling like life is meaningless and he has been thinking about killing himself. Pt states that he has had paranoid schizophrenia and anxiety in the past. Pt states that he is not hearing any voices right now.). No situational problems or recent drug use or alcohol consumption. He has not exhibited a behavior change, was not found wandering and is compliant with medication. Has had suicidal thoughts but been eating or sleeping or not been depressed. He has had anxiety. No anger, unusual behavior, paranoia, delusions or self-injury inflicted. No hallucinations. The symptoms are described as mild. No injury is present. Similar symptoms previously. Recent medical care: Seen for in ED on 08/03/18 for MHE DX Paranoid Schizophrenia. REVIEW OF SYSTEMS No headache, dizziness, weakness, chest pain or palpitations. No abdominal pain, vomiting, diarrhea, black stools or numbness. No fever, sore throat, cough, difficulty breathing or urinary frequency. No skin rash, enlarged lymph nodes, joint pain, weight loss or laceration. All other systems reviewed and are negative. PAST HISTORY See nurses notes. ( PCP-none). Anxiety. Bipolar disorder. Schizophrenia. Surgeries: No history of previous surgery. SOCIAL HISTORY Smoker- current status unknown (Chews tobacco). Never smoker. Occasional alcohol use. Last drink was 24 to 48 hours ago. No drug use. ADDITIONAL NOTES The nursing notes have been reviewed. PHYSICAL EXAM Vital Signs: 02/26/2019 17:04 BP: 137/79. HR: 70. RR: 20. O2 saturation: 96%. Temp: 97.8 F. Appearance: Alert. No acute distress. Appearance is normal. Eyes: Pupils equal, round and reactive to light. Neck: Normal inspection. Neck supple. CVS: Normal heart rate and rhythm. Heart sounds normal. Respiratory: Breath sounds normal. Chest nontender. Abdomen: Soft and nontender. Back: No tenderness. Skin: Skin warm and dry. Normal skin color. Normal skin turgor. Extremities: Extremities exhibit normal ROM. No lower extremity edema. Psych / Neuro: Oriented X 3. Mood and affect normal. Speech normal. Cognition normal. Thought process normal. He expresses suicidal thoughts. Insight and judgement normal. Cranial nerves normal (as tested). No cerebellar findings. No motor deficit. No sensory deficit. Reflexes normal. Allergies: Coded Allergies: NO KNOWN ALLERGIES (Unverified , 08/03/18) Active Meds: Current Hospital Medications: Medications (Trade) Dose Ordered Sig/Cristian Route PRN Reason Start Time Stop Time Status Last Admin Dose Admin Lorazepam (Ativan Tab) 0.5 mg Q4H PRN PO FOR MILD ANXIETY 02/26/19 19:00 Lorazepam (Ativan Tab) 1 mg Q4H PRN PO FOR MODERATE ANXIETY 02/26/19 19:00 Lorazepam (Ativan Tab) 2 mg Q4H PRN PO FOR SEVERE ANXIETY 02/26/19 19:00 Lorazepam (Ativan Inj) 2 mg Q4H PRN IM For Severe Aggression 02/26/19 19:00 Haloperidol Lactate (Haldol Inj) 5 mg Q4H PRN IM Severe Aggression 02/26/19 19:00 Diphenhydramine HCl (Benadryl Inj) 50 mg ONCE PRN IV Severe Extrapyramidal Symptoms 02/26/19 19:00 Benztropine Mesylate (Cogentin Tab) 1 mg BID PRN PO Mild Extrapyramidal symptoms 02/26/19 19:00 Benztropine Mesylate (Cogentin Inj) 1 mg ONCE PRN IM Severe Extrapyramidal Symptom 02/26/19 19:00 Acetaminophen (Tylenol Tab) 650 mg Q4H PRN PO FOR MILD PAIN 02/26/19 19:00 Trazodone HCl (Trazodone) 50 mg BEDTIME PRN PO FOR SLEEP 02/26/19 19:00 Nicotine (Nicoderm Patch) 21 mg DAILY PRN TD FOR WITHDRAWAL 02/26/19 19:00 Nicotine Polacrilex (Nicotine Gum) 2 mg Q2H PRN PO Withdrawal 02/26/19 19:00 Haloperidol (Haldol Tab) 5 mg Q4H PRN PO For agitation 02/26/19 19:00 Lorazepam (Ativan Tab) 2 mg Q4H PRN PO FOR AGITATION 02/26/19 19:00 Clonazepam (Klonopin) 0.5 mg BID PO 02/26/19 22:00 02/27/19 09:39 Paroxetine HCl (Paxil) 20 mg DAILY PO 02/27/19 10:00 02/27/19 09:39 Olanzapine (Zyprexa Tab) 20 mg BEDTIME PO 02/26/19 22:00 02/26/19 21:17 Past Medical History Other Family Medical History: Significant mental health issues including schizophrenia. No suicide attempts. Other Past Social History: Developmental history: He reports she is a product of a normal . He reports he learned to walk and talk and met his developmental milestones on time. He denies having speech therapy, learning support, emotional support and special education classes. Psychosocial history: He reports that he the only product of the union between his mother and father who stayed together until he was about 3 years old. He endorses having 5 half- brothers through his mother and 3 1/2 brothers and a half sister through his father. He reports his childhood was good and he denies any emotional, physical or sexual abuse. He made it through the 10th grade in high school and got his GED when he was around 19 years old. He reports that he was really good in track had no additional training after high school. He is heterosexual and reports he is never really had a relationship. He has never been , he has no children, he is never been in the , and endorses being a Mosque. His only work history was to the [employer] for about 6 months and he lives with his maternal grandparents. Hospital Course Hospital Course He slowly acclimated to the individual, group and milieu therapies provided. He was restarted on his trazodone 100 mg p.o. nightly, Seroquel was started at a lower dose of 300 mg p.o. nightly he continued on Remeron 15 mg p.o. nightly. He tolerated these doses and showed steady improvement during his stay. We attempted to work with him to find a more stable living arrangements given the volatility and expectations in his grandmother and mother's homes but he was focused on leaving and had no credible lethality. He was able to contract for safety outside hospital prior to discharge. During the hospitalization, patient had routine laboratory studies which were within normal limits except for few outliers. Additionally there was a general medical evaluation which was also within normal limits and revealed no new acute processes. Discharge Summary: At the time of discharge, lethality was denied and psychosis was resolving. Mood and anxiety were well managed. Patient endorsed a plan to follow-up with the aftercare recommendations of the treatment team. Patient was evaluated and deemed to be absent credible lethality, and had achieved the maximum benefit from an inpatient hospitalization, so was discharged. Involuntary Hold Information 96 Hour Hold: 96 Hour Involuntary Admission: No Mental Status Exam MSE Comments: This is a obese -Martiniquais male in hospital scrubs with limited grooming but adequate eye contact. No abnormal movements except for psychomotor retardation. Cooperative with exam in no acute distress. Speech was getting more spontaneous and decreased rate and volume. Mood described as a little better affect slightly subdued. Thought process more organized with less pauses. Thought content: Patient denied suicidal or homicidal ideation, there are no delusions reported and none were noted, he denied auditory or visual hallucinations but seem to be attending to internal stimuli less. Attention and concentration were limited and memory was mostly reliable but none were formally tested. He is alert and oriented x3. Insight and judgment are limited impulse control is limited. Discharge Data Vitals: Last Vital Signs Temp 99.0 F 05/19/21 15:43 Pulse 90 05/19/21 15:43 Resp 17 05/19/21 15:43 BP 113/67 05/19/21 15:43 Pulse Ox 96 05/19/21 15:43 Discharge Plan Discharge Patient Disposition: Home Condition: Stable Prescriptions: Discontinued trazodone 100 mg tablet 100 mg PO BEDTIME RF: 0 mirtazapine 15 mg tablet 30 mg PO BEDTIME RF: 0 quetiapine 400 mg tablet 400 mg PO BEDTIME RF: 0 No Action mirtazapine 15 mg tablet 30 mg PO BEDTIME 30 Days Qty: 30 RF: 3 quetiapine 300 mg tablet 300 mg PO BEDTIME 30 Days Qty: 30 RF: 3 trazodone 100 mg tablet 100 mg PO BEDTIME 30 Days Qty: 30 RF: 3 Discharge Orders: Discharge Order (Routine); Ordered 05/19/21 Ordered By: Carmelo Avila Referrals: [facility]Dr Jaimes [Other] - 05/25/21 3:45 pm Discharge Diet: Regular Discharge Activity: Resume usual activity Patient Instructions: Quetiapine (By mouth), Opioid Safety Discharge Attestations NPU Time Spent in Discharge Care*: less than 30 min Specific Discharge Activities: Specific discharge activities: educating patient, discussing with case planner/social workers/dc planners, documenting/other paperwork and evaluating patient/reviewing data Status at Discharge: Cognitive status at discharge: cognitively intact , Behavioral status at discharge: cooperative , Coding Level of Care Code Acute [facility] DC note Diagnoses Suicide ideation R45.851 Depression F32.9 Depression Type: unspecified Generalized anxiety disorder F41.1 Schizophrenia F20.9 Schizophrenia type: unspecified ST elevation R94.31 Right bundle branch block (RBBB) on electrocardiogram (ECG) I45.10 Agoraphobia with panic disorder F40.01 Major depressive disorder, recurrent, moderate F33.1
[2021-05-19 15:43] VITALS: BP 113/67; PULSE 90; RESP 17; TEMP 37.2; O2SAT 96
== END 2021-05-19 18:36 | disposition home or self-care (01) | DRG 885 ==
LOC: ER 13:50 → NP 17:24
PROVIDERS: Admitting Provider Psychiatry & Neurology Psychiatry; Emergency Provider Emergency Medicine; Visit Provider Psychiatry & Neurology Psychiatry
DX: F33.1 Major depressive disorder, recurrent, moderate (principal); R45.851 Suicidal ideations; F20.9 Schizophrenia, unspecified; F41.1 Generalized anxiety disorder; F40.01 Agoraphobia with panic disorder; F17.210 Nicotine dependence, cigarettes, uncomplicated; I45.10 Unspecified right bundle-branch block; Z59.00 Homelessness unspecified; Z91.51 Personal history of suicidal behavior
CPT/HCPCS: 80053; 80306; 80307; 81003; 84443; 85025; 93005; 97150; 97165; 99285

== ENCOUNTER → 2021-05-25 15:46 | Outpatient (BNVA) | payer MEDICAID, SELFPAY | PROVIDERS: Visit Provider Psychiatry & Neurology Psychiatry | DX: F20.9 Schizophrenia, unspecified (principal); F32.9 Major depressive disorder, single episode, unspecified; F41.1 Generalized anxiety disorder; R45.851 Suicidal ideations; F32.A Depression, unspecified | CPT/HCPCS: 99214 ==

== ENCOUNTER 2021-05-26 01:04 | Inpatient (IN) | payer MEDICAID, SELFPAY ==
[2021-05-26 01:09] VITALS: BP 117/85; PULSE 92; RESP 18; TEMP 36.1; O2SAT 94; BMI 32.1
--- NOTE | 2021-05-26 01:21 | W.ED.GENADLT ---
HPI - General Adult General: Chief complaint: Psychiatric Symptoms Stated complaint: SI Time Seen by Provider: 05/26/21 01:17 History of Present Illness: HPI narrative: HPI: [25]yo patient w/ hx of depression BIBA for SI and depression. Patient tells me he plans to overdose if he were to go home today. Symptoms of SI have gotten worse over the last few days. On arrival, the patient is AAOx3 and cooperative with my evaluation. No focal complaints of chest pain, shortness of breath, palpitations, N/V, focal GI/ complaints. +SI currently. No complaints of hallucinations. Onset: chronic Duration: ongoing Location: home Severity: severe Review of Systems Narrative: Constitutional: No fever, no chills. HEENT: No vision changes CV: No chest pain, no palpitations PULM: No productive cough, no dyspnea. GI: No abdominal pain, no N/V/D. : No dysuria MSKEL: No muscle pain SKIN: No new rashes, no lesions. NEURO: No headache, no focal weakness. HEME: No visible bruises PSYCH: +Depressed mood, +SI PFSH ED PFSH: Medical History (Updated 05/26/21 @ 01:21 by Muriel Truong MD) Agoraphobia with panic disorder Generalized anxiety disorder Major depressive disorder, recurrent, moderate Psychiatric care Psychiatric care Right bundle branch block (RBBB) on electrocardiogram (ECG) Schizophrenia ST elevation Suicide ideation Family History Grandfather Diabetes Social History Smoking and tobacco status: current every day smoker cigarettes Packs smoked per day: 0.25 Years cigarettes smoked: 4 Quit status (tobacco): has tried quititng Second hand smoke exposure: Yes (mother and stepfather) Smoking risk assessment/counseling performed?: Yes Alcohol intake: former Adopted: No Caregiver/support person: No Lives independently: No Household members: other Details: Mother, Step father, 4 brothers Housing: House Marital status: Single Number of children: 0 Number of grandchildren: 0 Highest education level completed: GED or Equivalent Education level details: 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 service: No Current occupational status: unemployed Pets and animals: No History of recent travel: No Leisure activites: exercise Sexually active: No Current gender identity: Male Ashley/Advent: Unknown Special ashley needs: No Agree to transfusion: Yes Financial difficulty paying for basics: Somewhat Hard Physical Exam Narrative: EXAM NARRATIVE: Head: Atraumatic Eyes: PERRL, conjunctiva without injection, eyes tracking ENT: Mucous membrane moist NECK: Supple without lymphadenopathy LUNGS: LCTAB CV: RRR ABDOMEN: Soft, nontender EXTREMITY: Normal ROM SKIN: No rash or erythema NEURO: Awake and alert. No focal weakness PSYCH: Cooperative mood and affect. Course Vital Signs: Vital signs: Vital Signs Temperature 96.9 F L 05/26/21 01:09 Pulse Rate 92 05/26/21 01:09 Respiratory Rate 18 05/26/21 01:09 Blood Pressure 117/85 05/26/21 01:09 Pulse Oximetry 94 05/26/21 01:09 MDM - General Adult MDM Narrative: Medical decision making narrative: [25]yo patient w/ hx of depression presenting for SI and worsening depression. HDS, exam within normal limit Thoughts are linear and organized, and the patient has no AH/VH, or HI. Clinically the patient displays no overt toxidrome; they are well appearing, with low suspicion for toxic ingestion given history and exam. Symptoms unlikely 2/2 anemia, hypothyroidism, infection, or ICH. Workup: CBC, CMP, Lipase, salicylate/tylenol, UDS Lab findings: wnl [time] On reassessment, labs and workup wnl. Patient is hemodynamically stable with no acute medical complaints. Case discussed with psychiatric provider Dr. Avila at [facility] psych inpatient with recommendation for admission Disposition: Psych Discharge Plan Discharge Patient Disposition: Admitted As Inpatient Clinical Impression: Suicide ideation, Depression Condition: Stable Coding Level of Care Code ED Paleontology Teacher for Jamal Bell
[2021-05-26 01:47] LABS: Basophils % 0.5 %; Eosinophils # 0.1 10^3/uL (0.0-0.8); Eosinophils % 1.2 %; Hematocrit 44.8 % (42.0-52.0); Hemoglobin 15.2 g/dL (11.7-16.6); Lymphocytes # 1.9 10^3/uL (0.8-4.8); Lymphocytes % 25.4 %; Mean Corpuscular HGB Conc 33.9 g/dL (30.0-36.0); Mean Corpuscular Hemoglobin 28.1 pg (28.0-34.0); Mean Corpuscular Volume 82.8 fl (80-94); Mean Platelet Volume 10.5 fL (7.4-10.4); Monocytes # 0.7 10^3/uL (0.2-0.9); Monocytes % 8.6 %; Neutrophils # 4.89 10^3/uL (1.8-7.7); Neutrophils % 63.9 %; Nucleated Red Blood Cells % 0 %; Platelet Count 217 10^3/cmm (130-400); Red Blood Count 5.41 10^6/uL (4.1-5.3); Red Cell Distribution Width 12.4 % (12.1-15.1); White Blood Count 7.7 10^3/uL (4.0-10.0)
[2021-05-26 01:57] LABS: Add Urine Microscopic? NO; Charge for UA Resulting for Rev
[2021-05-26 02:27] LABS: Bilirubin Urine Neg (Negative); Blood Urine Neg (Negative); Glucose Urine UA Norm (Normal); Ketones Urine Negative (Negative); Leukocyte Esterase Urine Negative (Negative); Nitrate Urine Negative (Negative); Protein Urine Neg (Negative); Urine Appearance Clear (CLEAR); Urine Color Yellow (Yellow); Urobilinogen Urine Neg (Negative); pH Urine 5 (5-7)
[2021-05-26 02:29] LABS: Amphetamines Screen Urine Negative (Negative); Barbiturates Screen Urine Negative (Negative); Benzodiazepines Screen Urine Negative (Negative); Cocaine Screen Urine Negative (Negative); Opiate Screen Urine Negative (Negative); PCP Screen Urine Negative (Negative); THC Screen Urine Negative (Negative)
[2021-05-26 02:46] LABS: Acetaminophen < 5.0 ug/mL (10-30); Salicylate < 0.3 mg/dL (3-10)
[2021-05-26 03:43] LABS: Alanine Aminotransferase 25 U/L (0-41); Albumin Level 4.3 g/dL (3.5-5.2); Alkaline Phosphatase 72 IU/L (40-130); Anion Gap 20.6 (5-19); Aspartate Amino Transferase 18 U/L (0-40); Blood Urea Nitrogen 12 mg/dL (6-20); Calcium 9.2 mg/dL (8.5-10.5); Carbon Dioxide 18 mmol/L (22-29); Chloride 102 mmol/L (98-107); Globulin 2.7 g/dL (1.3-4.6); Glucose 88 mg/dL (65-115); Osmolality Calculated 283 mOsm/kg (285-295); Potassium 3.6 mmol/L (3.5-5.1); Sodium 137 mmol/L (136-145); Thyroid Stimulating Hormone 2.87 uIU/mL (0.27-4.20); Total Bilirubin 0.2 mg/dL (0.15-1.2)
[2021-05-26 03:52] VITALS: BP 120/80; PULSE 80; RESP 16; O2SAT 98
[2021-05-26 04:06] VITALS: BP 138/75; PULSE 78; RESP 16; TEMP 36.6; O2SAT 99
[2021-05-26] MEDS: trazodone 50 mg Tablet PO (04:45)
--- NOTE | 2021-05-26 05:28 | PC.ADMIT ---
[address] [facility] Admission Note: Luis Fernando Hanley is a 25-year-old Black Bahamian male who was recently discharged from [facility]. He reported to [facility] ED endorsing suicidal ideations. He denies hallucinations or paranoia. He reported to writer technical publications that his parents kicked me out, citing that he was too old to live at home. Patient then went to his grandmother's home but reports his grandmother is only allowed to have overnight visitors for two weeks at a time, per policy. Patient reports he has nowhere to go and is seeking placement. Luis Fernando reports medication compliance since his discharge from [facility] last week. Patient has no medical history and no allergies. He is alert, oriented and cooperative during assessment. He denies suicidal/homicidal ideation at this time. patient w/ hx of depression BIBA for SI and depression. His mood is euthymic with pleasant affect. His thought process is logical with no delusional or paranoid content. There were no skin abnormalities noted during skin assessment. Luis Fernando was calm and cooperative during nursing assessment. The patient,Luis Fernando Hanley,25 y/o, was given written information regarding hospital policies, unit procedures and contact persons. Patient's smoking status: current every day smoker. Vital Signs - 8 hr 05/26/21 01:09 05/26/21 03:52 Temperature 96.9 F L Pulse Rate 92 80 Respiratory Rate 18 16 Blood Pressure 117/85 120/80 Pulse Oximetry 94 98
[2021-05-26 05:49] VITALS: RESP 15
[2021-05-26 14:00] VITALS: BP 100/66; PULSE 65; RESP 16; TEMP 36.2; O2SAT 97
[2021-05-26] MEDS: nicotine 2 mg Gum BUCCAL ×3 (14:15→20:41)
--- NOTE | 2021-05-26 17:39 | PC.NURSE ---
Patient did not eat any breakfast or lunch. After he got a piece of Nicorette gum, jokingly told him that did not count as scrambled eggs or turkey. He laughed. Asked him if he would like a sandwich and juice and he agreed.
--- NOTE | 2021-05-26 19:06 | W.PM.NPUH&PS ---
Providers/Chief Complaint Admitting Physician: Carmelo Avila MD Chief Complaint: SI HPI NPU History of Present Illness Luis Fernando Hanley is a 25 year old male who presented to the emergency department with the following report: Chief complaint: Psychiatric Symptoms Stated complaint: SI Time Seen by Provider: 05/26/21 01:17 History of Present Illness: HPI narrative: HPI: [25]yo patient w/ hx of depression BIBA for SI and depression. Patient tells me he plans to overdose if he were to go home today. Symptoms of SI have gotten worse over the last few days. On arrival, the patient is AAOx3 and cooperative with my evaluation. No focal complaints of chest pain, shortness of breath, palpitations, N/V, focal GI/ complaints. +SI currently. No complaints of hallucinations. Onset: chronic Duration: ongoing Location: home Severity: severe. He has no negative treatment of those issues. He presents today reporting that things did not go well after discharge. He reports that he went to his mom's place and she did not feel that he was well enough at 1 point he got frustrated with him. He then went to his grandmother's place and they just did not work out well. He reports that he was taking his medication but that symptoms began to worsen. We discussed as we did in his last hospitalization the importance of him having some stability to manifest his recovery. The [facility] program came to visit today and we will catch up with him later and determine what they were able to find as possible options to help him in his residential stability. We discussed the risk benefits and alternatives to possibly changing the Seroquel and other medications tomorrow however during his last stay he certainly got better each day on those medications when he was taking them daily and he understood agreed proceed as is documented in this note. An excerpt from his discharge 05/19/2021 is included below for context given that there are no substantive changes. Per his 05/19/2021 [facility] inpatient psychiatric discharge summary: Discharge Diagnosis (1) Suicide ideation: Status: Resolved (2) Depression: Status: Acute Qualifiers: Depression Type: unspecified Qualified Code(s): F32.9 - Major depressive disorder, single episode, unspecified (3) Generalized anxiety disorder: Status: Acute (4) Schizophrenia: Status: Acute Qualifiers: Schizophrenia type: unspecified Qualified Code(s): F20.9 - Schizophrenia, unspecified (5) ST elevation: Status: Acute (6) Right bundle branch block (RBBB) on electrocardiogram (ECG): Status: Acute (7) Agoraphobia with panic disorder: Status: Acute (8) Major depressive disorder, recurrent, moderate: Status: Acute Reason for Visit Reason for Visit: 96: W/LAW ENFORCEMENT Brief History: History of Present Illness Luis Fernando Hanley is a 25 year old male who presented to the emergency department with the following report: Chief Complaint: Psychiatric Symptoms Stated Complaint: 96: W/LAW ENFORCEMENT Time Seen by Provider: 05/13/21 13:34 History of Present Illness: HPI Narrative: 25-year-old male presents with suicidal ideation. By [employer] due to concern that he may harm himself. Denies any desire to harm anyone else. Does not have a concrete plan. Denies any hallucinations or delusions. Denies any focal medical complaint or focal pain. He is admitted to the neuropsychiatric unit for definitive treatment of those issues. He presents today reporting that he has been hospitalized a lot of times in his life due to may need to recall. He reports the last time he was at a hospital was about a week ago in [place] but was not admitted. He denies outpatient services but is clearly confused because documentation of outpatient services at [facility] has been in the system as recently as 05/13/2021. He appears to be a questionable historian with some factual pieces seeming consistent with previous notes and other parts being inconsistent however he does not appear to have a motive did not answer the questions authentically. An excerpt is March 07, 2019 evaluation with this director underwriter sales as below for context. He reports that recently he had not been on medication. But Klonopin, on Seroquel trazodone were recently reconciled an appointment he had yesterday. He endorses he smokes about a pack of cigarettes a day, denies alcohol marijuana or any other illicit drug use. He reports that he does not have suicidal thoughts that would not stop. He reports that he has been staying at his mom's house but also he had gone to [place] hopes he would get a job, but that did not work and he was staying at [employer]. He reports that his mom is about improved with the job he is liking it was in [place]. His goal is to get a job and live on his own. He reports he had 1 suicide attempt about a year or 2 ago. He denies any major changes in psychosocial history. Per his [facility] inpatient psychiatric evaluation 02/27/2019: Date of Service: Feb 27, 2019 Chief Complaint: Feeling depressed and suicidal. HPI: Patient presents today as a fairly poor historian. He reports that he has been feeling suicidal for weeks and was recently discharged from the hospital. He reports that he had no difficulties as a teen and that at 15 years old he started experimenting with alcohol and marijuana mostly marijuana. There was a point where he was smoking marijuana daily. He reports that he has since 19 stopped using essentially any drugs of abuse. He reports that he has been staying with his grandparents recently and has just had increasing levels of feelings of hopelessness, helplessness, worthlessness, feeling suicidal and having anxiety. Having depression. He is unclear if there are any contributing factors or reasons why he is feeling this way. He does report a significant period of homelessness before he recently moved in with his maternal grandparents. He reports that he was kicked out by his mother when he turned 19 and that he had been homeless for the last almost 4 years. He can give no clear information on her description of why he was unable to get a job or get his footing. He denies most symptoms of psychosis but ultimately does report some paranoia and confusion. Per ED eval: HISTORY OF PRESENT ILLNESS Chief Complaint: ANXIOUS and SUICIDAL THOUGHTS. This started 3 weeks ago. (23 yo Male presents to ED with complaints of anxiety and suicidal ideations. Pt states that he has been feeling like life is meaningless and he has been thinking about killing himself. Pt states that he has had paranoid schizophrenia and anxiety in the past. Pt states that he is not hearing any voices right now.). No situational problems or recent drug use or alcohol consumption. He has not exhibited a behavior change, was not found wandering and is compliant with medication. Has had suicidal thoughts but been eating or sleeping or not been depressed. He has had anxiety. No anger, unusual behavior, paranoia, delusions or self-injury inflicted. No hallucinations. The symptoms are described as mild. No injury is present. Similar symptoms previously. Recent medical care: Seen for in ED on 08/03/18 for [facility] DX Paranoid Schizophrenia. REVIEW OF SYSTEMS No headache, dizziness, weakness, chest pain or palpitations. No abdominal pain, vomiting, diarrhea, black stools or numbness. No fever, sore throat, cough, difficulty breathing or urinary frequency. No skin rash, enlarged lymph nodes, joint pain, weight loss or laceration. All other systems reviewed and are negative. PAST HISTORY See nurses notes. ( PCP-none). Anxiety. Bipolar disorder. Schizophrenia. Surgeries: No history of previous surgery. SOCIAL HISTORY Smoker- current status unknown (Chews tobacco). Never smoker. Occasional alcohol use. Last drink was 24 to 48 hours ago. No drug use. ADDITIONAL NOTES The nursing notes have been reviewed. PHYSICAL EXAM Vital Signs: 02/26/2019 17:04 BP: 137/79. HR: 70. RR: 20. O2 saturation: 96%. Temp: 97.8 F. Appearance: Alert. No acute distress. Appearance is normal. Eyes: Pupils equal, round and reactive to light. Neck: Normal inspection. Neck supple. CVS: Normal heart rate and rhythm. Heart sounds normal. Respiratory: Breath sounds normal. Chest nontender. Abdomen: Soft and nontender. Back: No tenderness. Skin: Skin warm and dry. Normal skin color. Normal skin turgor. Extremities: Extremities exhibit normal ROM. No lower extremity edema. Psych / Neuro: Oriented X 3. Mood and affect normal. Speech normal. Cognition normal. Thought process normal. He expresses suicidal thoughts. Insight and judgement normal. Cranial nerves normal (as tested). No cerebellar findings. No motor deficit. No sensory deficit. Reflexes normal. Allergies: Coded Allergies: NO KNOWN ALLERGIES (Unverified , 08/03/18) Active Meds: Current Hospital Medications: Medications (Trade) Dose Ordered Sig/Cristian Route PRN Reason Start Time Stop Time Status Last Admin Dose Admin Lorazepam (Ativan Tab) 0.5 mg Q4H PRN PO FOR MILD ANXIETY 02/26/19 19:00 Lorazepam (Ativan Tab) 1 mg Q4H PRN PO FOR MODERATE ANXIETY 02/26/19 19:00 Lorazepam (Ativan Tab) 2 mg Q4H PRN PO FOR SEVERE ANXIETY 02/26/19 19:00 Lorazepam (Ativan Inj) 2 mg Q4H PRN IM For Severe Aggression 02/26/19 19:00 Haloperidol Lactate (Haldol Inj) 5 mg Q4H PRN IM Severe Aggression 02/26/19 19:00 Diphenhydramine HCl (Benadryl Inj) 50 mg ONCE PRN IV Severe Extrapyramidal Symptoms 02/26/19 19:00 Benztropine Mesylate (Cogentin Tab) 1 mg BID PRN PO Mild Extrapyramidal symptoms 02/26/19 19:00 Benztropine Mesylate (Cogentin Inj) 1 mg ONCE PRN IM Severe Extrapyramidal Symptom 02/26/19 19:00 Acetaminophen (Tylenol Tab) 650 mg Q4H PRN PO FOR MILD PAIN 02/26/19 19:00 Trazodone HCl (Trazodone) 50 mg BEDTIME PRN PO FOR SLEEP 02/26/19 19:00 Nicotine (Nicoderm Patch) 21 mg DAILY PRN TD FOR WITHDRAWAL 02/26/19 19:00 Nicotine Polacrilex (Nicotine Gum) 2 mg Q2H PRN PO Withdrawal 02/26/19 19:00 Haloperidol (Haldol Tab) 5 mg Q4H PRN PO For agitation 02/26/19 19:00 Lorazepam (Ativan Tab) 2 mg Q4H PRN PO FOR AGITATION 02/26/19 19:00 Clonazepam (Klonopin) 0.5 mg BID PO 02/26/19 22:00 02/27/19 09:39 Paroxetine HCl (Paxil) 20 mg DAILY PO 02/27/19 10:00 02/27/19 09:39 Olanzapine (Zyprexa Tab) 20 mg BEDTIME PO 02/26/19 22:00 02/26/19 21:17 Past Medical History Other Family Medical History: Significant mental health issues including schizophrenia. No suicide attempts. Other Past Social History: Developmental history: He reports she is a product of a normal . He reports he learned to walk and talk and met his developmental milestones on time. He denies having speech therapy, learning support, emotional support and special education classes. Psychosocial history: He reports that he the only product of the union between his mother and father who stayed together until he was about 3 years old. He endorses having 5 half-brothers through his mother and 3 1/2 brothers and a half sister through his father. He reports his childhood was good and he denies any emotional, physical or sexual abuse. He made it through the 10th grade in high school and got his GED when he was around 19 years old. He reports that he was really good in track had no additional training after high school. He is heterosexual and reports he is never really had a relationship. He has never been , he has no children, he is never been in the , and endorses being a Jehovah'S Witness. His only work history was to the [employer] for about 6 months and he lives with his maternal grandparents. Hospital Course Hospital Course He slowly acclimated to the individual, group and milieu therapies provided. He was restarted on his trazodone 100 mg p.o. nightly, Seroquel was started at a lower dose of 300 mg p.o. nightly he continued on Remeron 15 mg p.o. nightly. He tolerated these doses and showed steady improvement during his stay. We attempted to work with him to find a more stable living arrangements given the volatility and expectations in his grandmother and mother's homes but he was focused on leaving and had no credible lethality. He was able to contract for safety outside hospital prior to discharge. During the hospitalization, patient had routine laboratory studies which were within normal limits except for few outliers. Additionally there was a general medical evaluation which was also within normal limits and revealed no new acute processes. Discharge Summary: At the time of discharge, lethality was denied and psychosis was resolving. Mood and anxiety were well managed. Patient endorsed a plan to follow-up with the aftercare recommendations of the treatment team. Patient was evaluated and deemed to be absent credible lethality, and had achieved the maximum benefit from an inpatient hospitalization, so was discharged. Meds NPU Home Medications Medication Instructions Recorded Confirmed Last Taken Type mirtazapine 15 mg tablet 30 mg PO BEDTIME 30 Days #30 tab 05/26/21 05/26/21 Unknown Rx quetiapine 300 mg tablet 300 mg PO BEDTIME 30 Days #30 tab 05/26/21 05/26/21 Unknown Rx trazodone 100 mg tablet 100 mg PO BEDTIME 30 Days #30 tab 05/26/21 05/26/21 Unknown Rx Allergies Allergy/AdvReac Type Severity Reaction Status Date / Time No Known Allergies Allergy Verified 05/13/21 15:32 PFS NPU PFSH: Medical History (Updated 05/26/21 @ 01:21 by Muriel Truong MD) Agoraphobia with panic disorder Generalized anxiety disorder Major depressive disorder, recurrent, moderate Psychiatric care Psychiatric care Right bundle branch block (RBBB) on electrocardiogram (ECG) Schizophrenia ST elevation Suicide ideation Family History Grandfather Diabetes Social History Smoking and tobacco status: current every day smoker cigarettes Packs smoked per day: 0.25 Years cigarettes smoked: 4 Quit status (tobacco): has tried quititng Second hand smoke exposure: Yes (mother and stepfather) Smoking risk assessment/counseling performed?: Yes Alcohol intake: former Adopted: No Caregiver/support person: No Lives independently: No Household members: other Details: Mother, Step father, 4 brothers Housing: House Marital status: Single Number of children: 0 Number of grandchildren: 0 Highest education level completed: GED or Equivalent Education level details: 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 service: No Current occupational status: unemployed Pets and animals: No History of recent travel: No Leisure activites: exercise Sexually active: No Current gender identity: Male Ashley/Druze: Unknown Special ashley needs: No Agree to transfusion: Yes Financial difficulty paying for basics: Somewhat Hard Mental Status Exam MSE Comments: This is a obese -Samoan male in hospital scrubs with limited grooming but adequate eye contact. No abnormal movements except for psychomotor retardation. Cooperative with exam in no acute distress. Speech was limited and decreased rate and volume. Mood described as depressed, affect congruent and subdued. Thought process appears organized. Thought content: Patient denied suicidal or homicidal ideation, there are no delusions reported though he did appear guarded, he denied auditory or visual hallucinations and did not appear particularly internally preoccupied. Attention and concentration were limited and memory was mostly reliable but none were formally tested. He is alert and oriented x3. Insight and judgment are limited impulse control is limited. Vitals/I&O/Wt Last Vital Signs Temp 97.2 F L 05/26/21 14:00 Pulse 65 05/26/21 14:00 Resp 16 05/26/21 14:00 BP 100/66 05/26/21 14:00 Pulse Ox 97 05/26/21 14:00 Weight last 48 hrs Weight 104.326 kg Data NPU : 05/26/21 01:30 05/26/21 01:30 A&P Assessment and plan (1) Suicide ideation: Status: Acute (2) Generalized anxiety disorder: Status: Acute (3) Schizophrenia: Status: Acute Qualifiers: Schizophrenia type: unspecified Qualified Code(s): F20.9 - Schizophrenia, unspecified (4) ST elevation: Status: Acute (5) Right bundle branch block (RBBB) on electrocardiogram (ECG): Status: Acute (6) Agoraphobia with panic disorder: Status: Acute (7) Major depressive disorder, recurrent, moderate: Status: Acute Additional A&P Information This is a 25-year-old -Samoan male with a long history of mental health issues including schizophrenia and anxiety as well as depression who presents endorsing depression and suicidal thoughts on his current medication having just discharged 7 days ago with continued psychosocial instabilities.. 1. Continue current medication. 2. Continue every 15 minute checks for safety. 3. Encourage individual, group and milieu therapies. 4. We will work with the [facility] program to find stable housing for him to continue his mental health recovery. Involuntary Hold Information 96 Hour Hold: 96 Hour Involuntary Admission: No Attestations NPU Medical Necessity Statement*: Inpatient hospitalization is medically necessary and the clinically appropriate intervention at this time. We will monitor medication to make changes as indicated. He will be in the hospital for over 2 midnights. Likely length of stay 3 to 5 days. 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
--- NOTE | 2021-05-26 20:43 | PC.NURSE ---
Patient refused medications stating They make me feel weird. Patient educated on medication dosage, indication, side effects. Patient unable to elaborate on concerns regarding medication. Comfort measures addressed. Continue to monitor patient.
[2021-05-26 20:54] VITALS: BP 127/76; PULSE 78; RESP 17; TEMP 36.8; O2SAT 98
[2021-05-27 06:00] VITALS: BP 121/70; PULSE 87; RESP 17; TEMP 36.6; O2SAT 99
--- NOTE | 2021-05-27 12:59 | NPU.GN ---
[facility] Group Topic:Coping Checkers General Mood of Group: Luis Fernando did not attend group today. He wanted to sleep.
[2021-05-27 13:48] VITALS: BP 95/61; PULSE 73; RESP 16; TEMP 36.5; O2SAT 97
--- NOTE | 2021-05-27 14:21 | P.NPUPN_ITS ---
Subjective NPU Subjective: Interval history: Patient presents today reporting that he is feeling a little better. Yesterday the [facility] came by and they began discussing possible opportunity he might have for placement and or programming. He reports that he is open to these options. We discussed his medications and he suggest that he might want to change them. We discussed the importance of having stability on the medication to assess what changes are appropriate. We also discussed that Dr. Harley would be managing his treatment and could make some recommendations if he continues to feel this way. Mental Status Exam MSE Comments: This is a obese -Marshallese male in hospital scrubs with limited grooming but adequate eye contact. No abnormal movements except for psychomotor retardation. Cooperative with exam in no acute distress. Speech was limited and decreased rate and volume. Mood described as okay, affect congruent and subdued. Thought process appears organized. Thought content: Patient denied suicidal or homicidal ideation, there are no delusions reported though he did appear guarded, he denied auditory or visual hallucinations and did not appear particularly internally preoccupied but occasionally still has inappropriate smiling near laughter.. Attention and concentration were limited and memory was mostly reliable but none were formally tested. He is alert and oriented x3. Insight and judgment are limited impulse control is limited. Vitals/I&O/Wt Last Vital Signs Temp 97.7 F 05/27/21 13:48 Pulse 73 05/27/21 13:48 Resp 16 05/27/21 13:48 BP 95/61 05/27/21 13:48 Pulse Ox 97 05/27/21 13:48 Data NPU : 05/26/21 01:30 05/26/21 01:30 A&P Additional A&P Information (1) Suicide ideation: (2) Generalized anxiety disorder: (3) Schizophrenia: (4) ST elevation: (5) Right bundle branch block (RBBB) on electrocardiogram (ECG): (6) Agoraphobia with panic disorder: (7) Major depressive disorder, recurrent, moderate: Additional A&P Information This is a 25-year-old -Marshallese male with a long history of mental health issues including schizophrenia and anxiety as well as depression who presents endorsing depression and suicidal thoughts on his current medication having just discharged 7 days ago with continued psychosocial instabilities.. 1. Continue current medication. We will work with Dr. Harley to consider medication changes. 2. Continue every 15 minute checks for safety. 3. Encourage individual, group and milieu therapies. 4. We will work with the [facility] program to find stable housing for him to continue his mental health recovery. Involuntary Hold Information 96 Hour Hold: 96 Hour Involuntary Admission: No Attestations NPU Medical Necessity Statement*: Inpatient hospitalization is medically necessary and the clinically appropriate intervention at this time. We will monitor medication to make changes as indicated. Likely length of stay 2-4 days. Coding Level of Care Code Acute [employer] for [employer]al Bell
[2021-05-27] MEDS: nicotine 2 mg Gum BUCCAL ×3 (17:21→22:05)
[2021-05-27 20:03] VITALS: BP 117/74; PULSE 102; RESP 16; O2SAT 96
--- NOTE | 2021-05-27 21:36 | PC.NURSE ---
Patient has been up walking in halls this evening. Calm. Non compliant with medications tonight, stating they make him feel weird and that he wants to talk to the Dr about them tomorrow before he takes anything. Up but has minimal interaction with others noted, does answer questions appropriately. [ End ]
[2021-05-28] MEDS: trazodone 100 mg Tablet PO (01:18)
[2021-05-28] MEDS: nicotine 2 mg Gum BUCCAL ×5 (02:40→22:55)
[2021-05-28 06:00] VITALS: BP 105/63; PULSE 113; RESP 18; TEMP 36.6; O2SAT 98
[2021-05-28 14:00] VITALS: BP 101/60; PULSE 69; RESP 16; TEMP 36.2; O2SAT 98
--- NOTE | 2021-05-28 14:56 | P.NPUPN_ITS ---
Subjective NPU Subjective: Interval history: He has been in bed all day. He says that he has not been taking the medication because they make him anxious and make his heart flutter and also make him sedated during the day. He has not taken them. He was asked if that has helped and he said that it has not. He does feel like he is doing better. He is happy that he is working with the [facility] and they are going to help him find a place to live. He has been on his current medication for about 7 months. He says that during that time his weight has increased from 170 or 180 up to 240 pounds. He said that he is trying to control his appetite and feels like he has stopped gaining. He says that he is okay with his current weight. He would like to reduce his Seroquel and agreed to try changing from the Remeron back to Paxil which she was on previously. He also wanted to take a different sleeping pill and agreed to try some doxepin. Mental Status Exam MSE Comments: This is a obese -[place] male in hospital scrubs with limited grooming but adequate eye contact. No abnormal movements except for psychomotor retardation. Cooperative with exam in no acute distress. Speech was limited and decreased rate and volume. Mood described as okay, affect congruent and subdued. Thought process appears organized. Thought content: Patient denied suicidal or homicidal ideation, there are no delusions reported though he did appear guarded, he denied auditory or visual hallucinations and did not appear particularly internally preoccupied but occasionally still has inappropriate smiling near laughter.. Attention and concentration were limited and memory was mostly reliable but none were formally tested. He is alert and oriented x3. Insight and judgment are limited impulse control is limited. Vitals/I&O/Wt Last Vital Signs Temp 97.2 F L 05/28/21 14:00 Pulse 69 05/28/21 14:00 Resp 16 05/28/21 14:00 BP 101/60 05/28/21 14:00 Pulse Ox 98 05/28/21 14:00 Data NPU : 05/26/21 01:30 05/26/21 01:30 A&P Assessment and plan (1) Suicide ideation: Status: Acute (2) Generalized anxiety disorder: Status: Acute (3) Schizophrenia: Status: Acute Qualifiers: Schizophrenia type: unspecified Qualified Code(s): F20.9 - Schizophrenia, unspecified (4) ST elevation: Status: Acute (5) Right bundle branch block (RBBB) on electrocardiogram (ECG): Status: Acute (6) Agoraphobia with panic disorder: Status: Acute (7) Major depressive disorder, recurrent, moderate: Status: Acute Additional A&P Information (1) Suicide ideation: (2) Generalized anxiety disorder: (3) Schizophrenia: (4) ST elevation: (5) Right bundle branch block (RBBB) on electrocardiogram (ECG): (6) Agoraphobia with panic disorder: (7) Major depressive disorder, recurrent, moderate: Additional A&P Information This is a 25-year-old -[place] male with a long history of mental health issues including schizophrenia and anxiety as well as depression who presents endorsing depression and suicidal thoughts on his current medication having just discharged 7 days ago with continued psychosocial instabilities.. 1. Decrease Seroquel to 200 mg. Discontinue Remeron and trazodone at his request. Add Paxil 20 mg in the morning and doxepin 50 mg at bedtime. 2. Continue every 15 minute checks for safety. 3. Encourage individual, group and milieu therapies. 4. We will work with the [facility] to find stable housing for him to continue his mental health recovery. Involuntary Hold Information 96 Hour Hold: 96 Hour Involuntary Admission: No Attestations U Medical Necessity Statement*: Inpatient hospitalization is medically necessary and the clinically appropriate intervention at this time. We will initiate medications and make changes as indicated. 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
[2021-05-28 19:52] VITALS: BP 116/79; PULSE 101; RESP 16; O2SAT 97
[2021-05-28] MEDS: doxepin 50 mg Capsule PO (21:10)
[2021-05-28] MEDS: quetiapine 100 mg Tablet 200 MG PO (21:10)
[2021-05-29 06:00] VITALS: BP 111/60; PULSE 62; RESP 17; O2SAT 97
[2021-05-29] MEDS: nicotine 2 mg Gum BUCCAL ×4 (08:48→23:58)
[2021-05-29] MEDS: PARoxetine 20 mg Tablet PO (08:48)
--- NOTE | 2021-05-29 12:44 | NPU.GN ---
[facility] Topic: Coping skills qasim General Mood of Group: Patient did not attend group.
--- NOTE | 2021-05-29 13:20 | P.NPUPN_ITS ---
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
--- NOTE | 2021-05-29 13:20 | W.PM.NPUPNS ---
Subjective NPU Subjective: Interval history: He was found in bed at 1 PM after lunch. He said that he has been in bed all day. He did sleep better last night. He did take the medication prescribed last night. He says that he did not have any side effects and it did help him sleep better. He did not specifically have any heart fluttering or anxiety from it like he felt like he had from the other medications including trazodone. He is happy that he has a place to go when he is released. He was hoping to be released tomorrow but they do not except new admissions over the weekend and he will have to wait until Tuesday. Mental Status Exam MSE Comments: This is a over weight -[place] male in hospital scrubs with limited grooming but adequate eye contact. No abnormal movements except for psychomotor retardation. Cooperative with exam in no acute distress. Speech was of regular rate and rhythm. Mood described as okay, affect congruent and subdued. Thought process appears organized. Thought content: Patient denied suicidal or homicidal ideation, there are no delusions reported though he did appear guarded, he denied auditory or visual hallucinations and did not appear particularly internally preoccupied and has not had any inappropriate laughter.. Attention and concentration were limited and memory was mostly reliable but none were formally tested. He is alert and oriented x3. Insight and judgment are limited impulse control is limited. Vitals/I&O/Wt Last Vital Signs Temp 97.2 F L 05/28/21 14:00 Pulse 62 05/29/21 06:00 Resp 17 05/29/21 06:00 BP 111/60 05/29/21 06:00 Pulse Ox 97 05/29/21 06:00 Data NPU : 05/26/21 01:30 05/26/21 01:30 A&P Assessment and plan (1) Suicide ideation: Status: Acute (2) Generalized anxiety disorder: Status: Acute (3) Schizophrenia: Status: Acute Qualifiers: Schizophrenia type: unspecified Qualified Code(s): F20.9 - Schizophrenia, unspecified (4) ST elevation: Status: Acute (5) Right bundle branch block (RBBB) on electrocardiogram (ECG): Status: Acute (6) Agoraphobia with panic disorder: Status: Acute (7) Major depressive disorder, recurrent, moderate: Status: Acute Additional A&P Information (1) Suicide ideation: (2) Generalized anxiety disorder: (3) Schizophrenia: (4) ST elevation: (5) Right bundle branch block (RBBB) on electrocardiogram (ECG): (6) Agoraphobia with panic disorder: (7) Major depressive disorder, recurrent, moderate: Additional A&P Information This is a 25-year-old -[place] male with a long history of mental health issues including schizophrenia and anxiety as well as depression who presents endorsing depression and suicidal thoughts on his current medication having just discharged 7 days ago with continued psychosocial instabilities.. 1. Continue Seroquel 200 mg, Paxil 20 mg QAM and doxepin 50 mg at bedtime. 2. Continue every 15 minute checks for safety. 3. Encourage individual, group and milieu therapies. 4. We will work with the [facility] to find stable housing for him to continue his mental health recovery. Involuntary Hold Information 96 Hour Hold: 96 Hour Involuntary Admission: No Attestations NPU Medical Necessity Statement*: Inpatient hospitalization is medically necessary and the clinically appropriate intervention at this time. We will initiate medications and make changes as indicated Coding Level of Care Code Acute Brand Representative for [facility] Diagnoses Suicide ideation R45.851 Generalized anxiety disorder F41.1 Schizophrenia F20.9 Schizophrenia type: unspecified ST elevation R94.31 Right bundle branch block (RBBB) on electrocardiogram (ECG) I45.10 Agoraphobia with panic disorder F40.01 Major depressive disorder, recurrent, moderate F33.1
[2021-05-29 13:54] VITALS: BP 109/70; PULSE 76; RESP 16; TEMP 36.7; O2SAT 98
[2021-05-29] MEDS: quetiapine 100 mg Tablet 200 MG PO (20:30)
[2021-05-29] MEDS: doxepin 50 mg Capsule PO (20:30)
[2021-05-29 21:25] VITALS: BP 132/83; PULSE 104; RESP 18; TEMP 36.7; O2SAT 96
[2021-05-30 05:59] VITALS: RESP 16
[2021-05-30] MEDS: PARoxetine 20 mg Tablet PO (08:44)
--- NOTE | 2021-05-30 13:52 | W.PM.NPUPNS ---
Subjective NPU Subjective: Interval history: He took his medication again last night and slept well. He still does not have any anxiety from these medications and feels good about taking them. He has not noticed any change in his appetite since changing the Remeron to Paxil. He says that his anxiety and depression are much better. He says that he stays in bed all day because there is nothing else to do. He does not feel sedated from the medication during the day. Mental Status Exam MSE Comments: This is a over weight -[place]iqu[place] male in hospital scrubs with limited grooming but adequate eye contact. No abnormal movements. Psychomotor activity is normal. cooperative with exam in no acute distress. Speech was of regular rate and rhythm. Mood described good, affect congruent and subdued. Thought process appears organized. Thought content: Patient denied suicidal or homicidal ideation, there are no delusions reported though he did appear guarded, he denied auditory or visual hallucinations and did not appear particularly internally preoccupied and has not had any inappropriate laughter.. Attention and concentration were limited and memory was mostly reliable but none were formally tested. He is alert and oriented x3. Insight and judgment are limited impulse control is limited. Affect: Affect Description: Flat Depressive Symptoms: Hopelessness and Unhappiness Vitals/I&O/Wt Last Vital Signs Temp 98.0 F 05/29/21 21:25 Pulse 104 H 05/29/21 21:25 Resp 16 05/30/21 05:59 BP 132/83 05/29/21 21:25 Pulse Ox 96 05/29/21 21:25 Data NPU : 05/26/21 01:30 05/26/21 01:30 A&P Assessment and plan (1) Suicide ideation: This is a 25-year-old -[place] male with a long history of mental health issues including schizophrenia and anxiety as well as depression who presents endorsing depression and suicidal thoughts on his current medication having just discharged 7 days ago with continued psychosocial instabilities.. 1. Continue Seroquel 200 mg, Paxil 20 mg QAM and doxepin 50 mg at bedtime. 2. Continue every 15 minute checks for safety. 3. Encourage individual, group and milieu therapies. 4. We will work with the [facility] program to find stable housing for him to continue his mental health recovery. Status: Acute (2) Generalized anxiety disorder: Status: Acute (3) Schizophrenia: Status: Acute Qualifiers: Schizophrenia type: unspecified Qualified Code(s): F20.9 - Schizophrenia, unspecified (4) ST elevation: Status: Acute (5) Right bundle branch block (RBBB) on electrocardiogram (ECG): Status: Acute (6) Agoraphobia with panic disorder: Status: Acute (7) Major depressive disorder, recurrent, moderate: Status: Acute Involuntary Hold Information 96 Hour Hold: 96 Hour Involuntary Admission: No Attestations NPU Medical Necessity Statement*: Inpatient hospitalization is medically necessary and the clinically appropriate intervention at this time. 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
[2021-05-30 14:00] VITALS: BP 113/72; PULSE 99; RESP 16; TEMP 36.7; O2SAT 96
[2021-05-30] MEDS: nicotine 2 mg Gum BUCCAL ×4 (14:59→23:54)
[2021-05-30 20:31] VITALS: BP 114/70; PULSE 78; RESP 18; TEMP 36.7; O2SAT 98
--- NOTE | 2021-05-30 21:00 | PC.NURSE ---
pt refused HS meds, aware.
--- NOTE | 2021-05-31 05:06 | PC.NURSE ---
Patient had been pretending to be asleep this evening. This Nurse asked him why he was having trouble sleeping. He stated, I don't know, I'm just kind of nervous/excited about going home. This Nurse asked him why he has been refusing his medications. Patient replied, I just don't want to be on any medications. Patient denies any complaints but continues to have flat affect and is withdrawn from peers, does not socialize. Will continue to monitor.
[2021-05-31 06:00] VITALS: BP 113/69; PULSE 62; RESP 18; TEMP 36.6; O2SAT 97
--- NOTE | 2021-05-31 06:43 | W.PM.NPUPNS ---
Subjective NPU Subjective: Interval history: He was found in bed but awake. He refused his bedtime medications last night. He said that he slept all day yesterday. When asked specifically he admitted that he was in bed all day but did not sleep very much. He said that he was going to try to get better naturally without medication. He has been a person who likes exercise but has not been exercising recently. He was told that he probably would not do as well without medication but that exercise would be of some benefit. He was strongly encouraged to exercise vigorously upon release. He was encouraged to stay up today if he wanted to sleep tonight. He said that he basically just sleeps whenever he can. He said that he is very excited about getting out tomorrow. He is thinking a lot about what he needs to do. Mental Status Exam MSE Comments: This is a over weight -[place] male in hospital scrubs with limited grooming but adequate eye contact. No abnormal movements. Psychomotor activity is normal. cooperative with exam in no acute distress. Speech was of regular rate and rhythm. Mood described good, affect congruent and subdued. Thought process appears organized. Thought content: Patient denied suicidal or homicidal ideation, there are no delusions reported though he did appear guarded, he denied auditory or visual hallucinations and did not appear particularly internally preoccupied and has not had any inappropriate laughter.. Attention and concentration were limited and memory was mostly reliable but none were formally tested. He is alert and oriented x3. Insight and judgment are limited impulse control is limited. Vitals/I&O/Wt Last Vital Signs Temp 97.9 F 05/31/21 06:00 Pulse 62 05/31/21 06:00 Resp 18 05/31/21 06:00 BP 113/69 05/31/21 06:00 Pulse Ox 97 05/31/21 06:00 Weight last 48 hrs Weight 104.326 kg Data NPU : 05/26/21 01:30 05/26/21 01:30 A&P Assessment and plan (1) Suicide ideation: This is a 25-year-old -[place] male with a long history of mental health issues including schizophrenia and anxiety as well as depression who presents endorsing depression and suicidal thoughts on his current medication having just discharged 7 days ago with continued psychosocial instabilities.. 1. Continue Seroquel 200 mg, Paxil 20 mg QAM and doxepin 50 mg at bedtime. 2. Continue every 15 minute checks for safety. 3. Encourage individual, group and milieu therapies. 4. We will work with the [facility] to find stable housing for him to continue his mental health recovery. Status: Acute (2) Generalized anxiety disorder: Status: Acute (3) Schizophrenia: Status: Acute Qualifiers: Schizophrenia type: unspecified Qualified Code(s): F20.9 - Schizophrenia, unspecified (4) ST elevation: Status: Acute (5) Right bundle branch block (RBBB) on electrocardiogram (ECG): Status: Acute (6) Agoraphobia with panic disorder: Status: Acute (7) Major depressive disorder, recurrent, moderate: Status: Acute Involuntary Hold Information 96 Hour Hold: 96 Hour Involuntary Admission: No Attestations NPU Medical Necessity Statement*: Inpatient hospitalization is medically necessary and the clinically appropriate intervention at this time. 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
[2021-05-31] MEDS: nicotine 2 mg Gum BUCCAL ×4 (06:46→23:35)
[2021-05-31] MEDS: PARoxetine 20 mg Tablet PO (08:23)
[2021-05-31 13:58] VITALS: BP 132/85; PULSE 95; RESP 16; TEMP 36.3; O2SAT 98
[2021-05-31 20:57] VITALS: BP 125/78; PULSE 81; RESP 16; O2SAT 97
--- NOTE | 2021-05-31 21:00 | PC.NURSE ---
pt again refused HS meds.
[2021-06-01 06:00] VITALS: RESP 17
--- NOTE | 2021-06-01 07:46 | P.NPUHP_ITS ---
Providers/Chief Complaint Admitting Physician: Carmelo Avila MD Chief Complaint: SI HPI NPU History of Present Illness History of Present Illness Luis Fernando Hanley is a 25 year old male who presented to the emergency department with the following report: Chief complaint: Psychiatric Symptoms Stated complaint: SI Time Seen by Provider: 05/26/21 01:17 History of Present Illness: HPI narrative: HPI: [25]yo patient w/ hx of depression BIBA for SI and depression. Patient tells me he plans to overdose if he were to go home today. Symptoms of SI have gotten worse over the last few days. On arrival, the patient is AAOx3 and cooperative with my evaluation. No focal complaints of chest pain, shortness of breath, palpitations, N/V, focal GI/ complaints. +SI currently. No complaints of hallucinations. Onset: chronic Duration: ongoing Location: home Severity: severe. He has no negative treatment of those issues. He presents today reporting that things did not go well after discharge. He reports that he went to his mom's place and she did not feel that he was well enough at 1 point he got frustrated with him. He then went to his grandmother's place and they just did not work out well. He reports that he was taking his medication but that symptoms began to worsen. We discussed as we did in his last hospitalization the importance of him having some stability to manifest his recovery. The [facility] program came to visit today and we will catch up with him later and determine what they were able to find as possible options to help him in his residential stability. We discussed the risk benefits and alternatives to possibly changing the Seroquel and other medications tomorrow however during his last stay he certainly got better each day on those medications when he was taking them daily and he und erstood agreed proceed as is documented in this note. An excerpt from his discharge 05/19/2021 is included below for context given that there are no substantive changes. Per his 05/19/2021 [facility] inpatient psychiatric discharge summary: Discharge Diagnosis (1) Suicide ideation: Status: Resolved (2) Depression: Status: Acute Qualifiers: Depression Type: unspecified Qualified Code(s): F32.9 - Major depressive disorder, single episode, unspecified (3) Generalized anxiety disorder: Status: Acute (4) Schizophrenia: Status: Acute Qualifiers: Schizophrenia type: unspecified Qualified Code(s): F20.9 - Schizophrenia, unspecified (5) ST elevation: Status: Acute (6) Right bundle branch block (RBBB) on electrocardiogram (ECG): Status: Acute (7) Agoraphobia with panic disorder: Status: Acute (8) Major depressive disorder, recurrent, moderate: Status: Acute Reason for Visit Reason for Visit: 96: W/LAW ENFORCEMENT Brief History: History of Present Illness Luis Fernando Hanley is a 25 year old male who presented to the emergency department with the following report: Chief Complaint: Psychiatric Symptoms Stated Complaint: 96: W/LAW ENFORCEMENT Time Seen by Provider: 05/13/21 13:34 History of Present Illness: HPI Narrative: 25-year-old male presents with suicidal ideation. By [employer] Department due to concern that he may harm himself. Denies any desire to harm anyone else. Does not have a concrete plan. Denies any hallucinations or delusions. Denies any focal medical complaint or focal pain. He is admitted to the neuropsychiatric unit for definitive treatment of those issues. He presents today reporting that he has been hospitalized a lot of times in his life due to may need to recall. He reports the last time he was at a hospital was about a week ago in [place] but was not admitted. He denies outpatient services but is clearly confused because documentation of outpatient services at [facility] has been in the system as recently as 05/13/2021. He appears to be a questionable historian with some factual pieces seeming consistent with previous notes and other parts being inconsistent however he does not appear to have a motive did not answer the questions authentically. An excerpt is February 092018 evaluation with this field underwriter as below for context. He reports that recently he had not been on medication. But Klonopin, on Seroquel trazodone were recently reconciled an appointment he had yesterday. He endorses he smokes about a pack of cigarettes a day, denies alcohol marijuana or any other illicit drug use. He reports that he does not have suicidal thoughts that would not stop. He reports that he has been staying at his mom's house but also he had gone to [place] hopes he would get a job, but that did not work and he was staying at [employer]. He reports that his mom is about improved with the job he is liking it was in [place]. His goal is to get a job and live on his own. He reports he had 1 suicide attempt about a year or 2 ago. He denies any major changes in psychosocial history. Meds NPU Home Medications Medication Instructions Recorded Confirmed Last Taken Type doxepin 50 mg PO BEDTIME 30 Days #30 cap 06/01/21 Unknown Rx paroxetine HCl 20 mg PO DAILY 30 Days #30 tab 06/01/21 Unknown Rx quetiapine 200 mg PO BEDTIME 30 Days #60 tab 06/01/21 Unknown Rx Allergies Allergy/AdvReac Type Severity Reaction Status Date / Time No Known Allergies Allergy Verified 05/13/21 15:32 PFSH NPU PFSH: Medical History (Updated 05/26/21 @ 01:21 by Muriel Truong MD) Agoraphobia with panic disorder Generalized anxiety disorder Major depressive disorder, recurrent, moderate Psychiatric care Psychiatric care Right bundle branch block (RBBB) on electrocardiogram (ECG) Schizophrenia ST elevation Suicide ideation Family History Grandfather Diabetes Social History Smoking and tobacco status: current every day smoker cigarettes Packs smoked per day: 0.25 Years cigarettes smoked: 4 Quit status (tobacco): has tried quititng Second hand smoke exposure: Yes (mother and stepfather) Smoking risk assessment/counseling performed?: Yes Alcohol intake: former Adopted: No Caregiver/support person: No Lives independently: No Household members: other Details: Mother, Step father, 4 brothers Housing: House Marital status: Single Number of children: 0 Number of grandchildren: 0 Highest education level completed: GED or Equivalent Education level details: 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 service: No Current occupational status: unemployed Pets and animals: No History of recent travel: No Leisure activites: exercise Sexually active: No Current gender identity: Male Ashley/Cheondoism: Unknown Special ashley needs: No Agree to transfusion: Yes Financial difficulty paying for basics: Somewhat Hard Exercise: What type of physical activity do you participate in?: walking Physical activity functional status: independent ambulation How many days of moderate to strenuous exercise, like a brisk walk, did you do in the last 7 days: 5 Mental Status Exam MSE Comments: This is a over weight -Liber[place] male in hospital scrubs with limited grooming but adequate eye contact. No abnormal movements. Psychomotor activity is normal. cooperative with exam in no acute distress. Speech was of regular rate and rhythm. Mood described good, affect congruent and subdued. Thought process appears organized. Thought content: Patient denied suicidal or homicidal ideation, there are no delusions reported though he did appear guarded, he denied auditory or visual hallucinations and did not appear particularly internally preoccupied and has not had any inappropriate laughter.. Attention and concentration were limited and memory was mostly reliable but none were formally tested. He is alert and oriented x3. Insight and judgment are limited impulse control is limited. Cognition: Patient Appearance: Appropriate Level of Consciousness: Awake, Alert, Appropriate and Follows Commands Patient Cognition Impaired: No Ability to Follow Directions: Good Patient Orientation (long list): Person, Place, Name, Age and Birthday Comprehension Ability: No Impairment Hallucination Type: None Delusion Description: Not Present Thought Process: Appropriate Affect: Affect Description: Calm Depressive Symptoms: Hopelessness and Unhappiness Behavior: Patient Behavior: Cooperative Speech Pattern: Clear Vitals/I&O/Wt Last Vital Signs Temp 97.3 F L 05/31/21 13:58 Pulse 81 05/31/21 20:57 Resp 17 06/01/21 06:00 BP 125/78 05/31/21 20:57 Pulse Ox 97 05/31/21 20:57 Weight last 48 hrs Weight 104.326 kg Data NPU : 05/26/21 01:30 05/26/21 01:30 A&P Assessment and plan (1) Suicide ideation: Status: Acute (2) Generalized anxiety disorder: Status: Acute (3) Schizophrenia: Status: Acute Qualifiers: Schizophrenia type: unspecified Qualified Code(s): F20.9 - Schizophrenia, unspecified (4) ST elevation: Status: Acute (5) Right bundle branch block (RBBB) on electrocardiogram (ECG): Status: Acute (6) Agoraphobia with panic disorder: Status: Acute (7) Major depressive disorder, recurrent, moderate: Status: Acute Involuntary Hold Information 96 Hour Hold: 96 Hour Involuntary Admission: No Attestations NPU Medical Necessity Statement*: Inpatient hospitalization was medically necessary and the clinically appropriate intervention at this time. He now denies lethality and is ready for discharge Coding Level of Care Code Acute Nursing Program Director for [facility] Diagnoses Suicide ideation R45.851 Generalized anxiety disorder F41.1 Schizophrenia F20.9 Schizophrenia type: unspecified ST elevation R94.31 Right bundle branch block (RBBB) on electrocardiogram (ECG) I45.10 Agoraphobia with panic disorder F40.01 Major depressive disorder, recurrent, moderate F33.1
[2021-06-01] MEDS: PARoxetine 20 mg Tablet PO (08:15)
[2021-06-01 09:30] VITALS: BP 130/80; PULSE 78; RESP 17; TEMP 36.6; O2SAT 98
--- NOTE | 2021-06-05 16:59 | W.PM.NPUDCS ---
Diagnoses at Discharge Discharge Diagnosis (1) Suicide ideation: Status: Resolved (2) Generalized anxiety disorder: Status: Acute (3) Schizophrenia: Status: Acute Qualifiers: Schizophrenia type: unspecified Qualified Code(s): F20.9 - Schizophrenia, unspecified (4) ST elevation: Status: Acute (5) Right bundle branch block (RBBB) on electrocardiogram (ECG): Status: Acute (6) Agoraphobia with panic disorder: Status: Acute (7) Major depressive disorder, recurrent, moderate: Status: Acute Reason for Visit Reason for Visit: SI Brief History: History of Present Illness Luis Fernando Hanley is a 25 year old male who presented to the emergency department with the following report: Chief complaint: Psychiatric Symptoms Stated complaint: SI Time Seen by Provider: 05/26/21 01:17 History of Present Illness: HPI narrative: HPI: [25]yo patient w/ hx of depression BIBA for SI and depression. Patient tells me he plans to overdose if he were to go home today. Symptoms of SI have gotten worse over the last few days. On arrival, the patient is AAOx3 and cooperative with my evaluation. No focal complaints of chest pain, shortness of breath, palpitations, N/V, focal GI/ complaints. +SI currently. No complaints of hallucinations. Onset: chronic Duration: ongoing Location: home Severity: severe. He has no negative treatment of those issues. He presents today reporting that things did not go well after discharge. He reports that he went to his mom's place and she did not feel that he was well enough at 1 point he got frustrated with him. He then went to his grandmother's place and they just did not work out well. He reports that he was taking his medication but that symptoms began to worsen. We discussed as we did in his last hospitalization the importance of him having some stability to manifest his recovery. The [facility] program came to visit today and we will catch up with him later and determine what they were able to find as possible options to help him in his residential stability. We discussed the risk benefits and alternatives to possibly changing the Seroquel and other medications tomorrow however during his last stay he certainly got better each day on those medications when he was taking them daily and he understood agreed proceed as is documented in this note. An excerpt from his discharge 05/19/2021 is included below for context given that there are no substantive changes. Per his 05/19/2021 [facility] inpatient psychiatric discharge summary: Discharge Diagnosis (1) Suicide ideation: Status: Resolved (2) Depression: Status: Acute Qualifiers: Depression Type: unspecified Qualified Code(s): F32.9 - Major depressive disorder, single episode, unspecified (3) Generalized anxiety disorder: Status: Acute (4) Schizophrenia: Status: Acute Qualifiers: Schizophrenia type: unspecified Qualified Code(s): F20.9 - Schizophrenia, unspecified (5) ST elevation: Status: Acute (6) Right bundle branch block (RBBB) on electrocardiogram (ECG): Status: Acute (7) Agoraphobia with panic disorder: Status: Acute (8) Major depressive disorder, recurrent, moderate: Status: Acute Reason for Visit Reason for Visit: 96: W/LAW ENFORCEMENT Brief History: History of Present Illness Luis Fernando Hanley is a 25 year old male who presented to the emergency department with the following report: Chief Complaint: Psychiatric Symptoms Stated Complaint: 96: W/LAW ENFORCEMENT Time Seen by Provider: 05/13/21 13:34 History of Present Illness: HPI Narrative: 25-year-old male presents with suicidal ideation. By Police Department due to concern that he may harm himself. Denies any desire to harm anyone else. Does not have a concrete plan. Denies any hallucinations or delusions. Denies any focal medical complaint or focal pain. He is admitted to the neuropsychiatric unit for definitive treatment of those issues. He presents today reporting that he has been hospitalized a lot of times in his life due to may need to recall. He reports the last time he was at a hospital was about a week ago in [place] but was not admitted. He denies outpatient services but is clearly confused because documentation of outpatient services at [facility] has been in the system as recently as 05/13/2021. He appears to be a questionable historian with some factual pieces seeming consistent with previous notes and other parts being inconsistent however he does not appear to have a motive did not answer the questions authentically. An excerpt is March 07, 2019 evaluation with this sql report writer as below for context. He reports that recently he had not been on medication. But Klonopin, on Seroquel trazodone were recently reconciled an appointment he had yesterday. He endorses he smokes about a pack of cigarettes a day, denies alcohol marijuana or any other illicit drug use. He reports that he does not have suicidal thoughts that would not stop. He reports that he has been staying at his mom's house but also he had gone to [place] hopes he would get a job, but that did not work and he was staying at [employer]. He reports that his mom is about improved with the job he is liking it was in [place]. His goal is to get a job and live on his own. He reports he had 1 suicide attempt about a year or 2 ago. He denies any major changes in psychosocial history. Per his [facility] inpatient psychiatric evaluation 02/27/2019: Date of Service: Feb 27, 2019 Chief Complaint: Feeling depressed and suicidal. HPI: Patient presents today as a fairly poor historian. He reports that he has been feeling suicidal for weeks and was recently discharged from the hospital. He reports that he had no difficulties as a teen and that at 15 years old he started experimenting with alcohol and marijuana mostly marijuana. There was a point where he was smoking marijuana daily. He reports that he has since 19 stopped using essentially any drugs of abuse. He reports that he has been staying with his grandparents recently and has just had increasing levels of feelings of hopelessness, helplessness, worthlessness, feeling suicidal and having anxiety. Having depression. He is unclear if there are any contributing factors or reasons why he is feeling this way. He does report a significant period of homelessness before he recently moved in with his maternal grandparents. He reports that he was kicked out by his mother when he turned 19 and that he had been homeless for the last almost 4 years. He can give no clear information on her description of why he was unable to get a job or get his footing. He denies most symptoms of psychosis but ultimately does report some paranoia and confusion. Per ED eval: HISTORY OF PRESENT ILLNESS Chief Complaint: ANXIOUS and SUICIDAL THOUGHTS. This started 3 weeks ago. (23 yo Male presents to ED with complaints of anxiety and suicidal ideations. Pt states that he has been feeling like life is meaningless and he has been thinking about killing himself. Pt states that he has had paranoid schizophrenia and anxiety in the past. Pt states that he is not hearing any voices right now.). No situational problems or recent drug use or alcohol consumption. He has not exhibited a behavior change, was not found wandering and is compliant with medication. Has had suicidal thoughts but been eating or sleeping or not been depressed. He has had anxiety. No anger, unusual behavior, paranoia, delusions or self-injury inflicted. No hallucinations. The symptoms are described as mild. No injury is present. Similar symptoms previously. Recent medical care: Seen for in ED on 08/03/18 for [facility] DX Paranoid Schizophrenia. REVIEW OF SYSTEMS No headache, dizziness, weakness, chest pain or palpitations. No abdominal pain, vomiting, diarrhea, black stools or numbness. No fever, sore throat, cough, difficulty breathing or urinary frequency. No skin rash, enlarged lymph nodes, joint pain, weight loss or laceration. All other systems reviewed and are negative. PAST HISTORY See nurses notes. ( PCP-none). Anxiety. Bipolar disorder. Schizophrenia. Surgeries: No history of previous surgery. SOCIAL HISTORY Smoker- current status unknown (Chews tobacco). Never smoker. Occasional alcohol use. Last drink was 24 to 48 hours ago. No drug use. Hospital Course Hospital Course He slowly acclimated to the individual, group and milieu therapies provided. He initially refused his medication. He said they caused him to be sleepy but also anxious the next day. It was also noted that he had gained about 60 pounds since he had been on the Seroquel and Remeron combination. The Seroquel was reduced to 200 mg, Remeron was changed to Paxil 20 mg and trazodone was changed to doxepin 50 mg. He took those for a few days without issues. The 2 nights before he left he did not take the sleep medications. He did not sleep well the first night but slept about 4 hours the second night. He said that he wanted to get by with natural methods. He tolerated these doses and showed steady improvement during his stay. He was mostly concerned about a place to stay and that was secured for him and brightened his mood and eliminated his suicidal thoughts. He was able to contract for safety outside hospital prior to discharge. During the hospitalization, patient had routine laboratory studies which were within normal limits except for few outliers. Additionally there was a general medical evaluation which was also within normal limits and revealed no new acute processes. Discharge Summary: At the time of discharge, lethality was denied and psychosis was resolving. Mood and anxiety were well managed. Patient endorsed a plan to follow-up with the aftercare recommendations of the treatment team. Patient was evaluated and deemed to be absent credible lethality, and had achieved the maximum benefit from an inpatient hospitalization, so was discharged. Involuntary Hold Information 96 Hour Hold: 96 Hour Involuntary Admission: No Mental Status Exam MSE Comments: This is a over weight -Namibian male in hospital scrubs with limited grooming but adequate eye contact. No abnormal movements. Psychomotor activity is normal. cooperative with exam in no acute distress. Speech was of regular rate and rhythm. Mood described good, affect congruent and subdued. Thought process appears organized. Thought content: Patient denied suicidal or homicidal ideation, there are no delusions reported though he did appear guarded, he denied auditory or visual hallucinations and did not appear particularly internally preoccupied and has not had any inappropriate laughter.. Attention and concentration were limited and memory was mostly reliable but none were formally tested. He is alert and oriented x3. Insight and judgment are limited impulse control is limited. Cognition: Patient Appearance: Appropriate Level of Consciousness: Awake, Alert and Appropriate Patient Cognition Impaired: No Ability to Follow Directions: Good Patient Orientation (long list): Person, Place, Name, Age and Birthday Comprehension Ability: No Impairment Hallucination Type: None Delusion Description: Not Present Thought Process: Appropriate Affect: Affect Description: Appropriate and Calm Depressive Symptoms: Hopelessness and Unhappiness Behavior: Patient Behavior: Appropriate and Cooperative Speech Pattern: Appropriate and Clear Discharge Data Vitals: Last Vital Signs Temp 97.9 F 06/01/21 09:30 Pulse 78 06/01/21 09:30 Resp 17 06/01/21 09:30 BP 130/80 06/01/21 09:30 Pulse Ox 98 06/01/21 09:30 Discharge Plan Discharge Patient Disposition: Home Condition: Stable Prescriptions: New doxepin 50 mg Capsule 50 mg PO BEDTIME 30 Days Qty: 30 RF: 0 quetiapine 100 mg Tablet 200 mg PO BEDTIME 30 Days Qty: 60 RF: 0 paroxetine HCl 20 mg Tablet 20 mg PO DAILY 30 Days Qty: 30 RF: 1 Discontinued mirtazapine 15 mg tablet 30 mg PO BEDTIME 30 Days Qty: 30 RF: 3 quetiapine 300 mg tablet 300 mg PO BEDTIME 30 Days Qty: 30 RF: 3 trazodone 100 mg tablet 100 mg PO BEDTIME 30 Days Qty: 30 RF: 3 Discharge Orders: Discharge Order (Routine); Ordered 06/01/21 Ordered By: Alex Harley Referrals: Viviane Jaimes MD [[place]] - 06/10/21 3:45 pm (Medications appointment with Dr. Jaimes on 06/10/21 @ 3:45pm at the [facility] office. Phone #: [phone] Address: [address] [facility] [address]. You will need to call [employer] 3 days before the appointment to set up transportation if none is available to you. [employer] phone #: [phone] ) Discharge Diet: Regular Discharge Activity: Resume usual activity Patient Instructions: Depression, Opioid Safety Discharge Attestations NPU Time Spent in Discharge Care*: less than 30 min Specific Discharge Activities: Specific discharge activities: educating patient, discussing with residential case manager/social workers/dc planners, documenting/other paperwork and evaluating patient/reviewing data Status at Discharge: Cognitive status at discharge: cognitively intact, Behavioral status at discharge: cooperative, Coding Level of Care Code Acute [facility] DC note Diagnoses Suicide ideation R45.851 Generalized anxiety disorder F41.1 Schizophrenia F20.9 Schizophrenia type: unspecified ST elevation R94.31 Right bundle branch block (RBBB) on electrocardiogram (ECG) I45.10 Agoraphobia with panic disorder F40.01 Major depressive disorder, recurrent, moderate F33.1
== END 2021-06-01 09:42 | disposition home or self-care (01) | DRG 885 ==
LOC: ER 01:26 → NP 06:19
PROVIDERS: Admitting Provider Psychiatry & Neurology Psychiatry; Emergency Provider Emergency Medicine; Visit Provider Psychiatry & Neurology Psychiatry
DX: F25.1 Schizoaffective disorder, depressive type (principal); R45.851 Suicidal ideations; F40.01 Agoraphobia with panic disorder; F41.1 Generalized anxiety disorder; F17.210 Nicotine dependence, cigarettes, uncomplicated; Z91.14 Patient's other noncompliance with medication regimen
CPT/HCPCS: 80053; 80306; 80307; 81003; 84443; 85025; 97165; 99285

== ENCOUNTER → 2021-06-25 12:42 | Outpatient (BNVA) | payer MEDICAID, SELFPAY | PROVIDERS: Visit Provider Counselor Mental Health | DX: F20.9 Schizophrenia, unspecified (principal) | CPT/HCPCS: 90832 ==

== ENCOUNTER → 2021-07-09 12:54 | Outpatient (BNVA) | payer MEDICAID, SELFPAY | PROVIDERS: Visit Provider Counselor Mental Health | DX: F20.9 Schizophrenia, unspecified (principal) | CPT/HCPCS: 90834 ==

== ENCOUNTER → 2021-07-28 11:57 | Outpatient (BNVA) | payer MEDICAID, SELFPAY | PROVIDERS: Visit Provider Counselor Mental Health | DX: F20.9 Schizophrenia, unspecified (principal) | CPT/HCPCS: 90834 ==

== ENCOUNTER 2021-08-14 16:54 | Emergency (ER) | payer MEDICAID, SELFPAY ==
[2021-08-14 17:56] VITALS: BP 112/78; PULSE 72; RESP 16; TEMP 36.3; O2SAT 100; BMI 32.6
--- NOTE | 2021-08-14 20:42 | ED_ITS ---
HPI - General Adult General: Chief complaint: General Medical Stated complaint: Unable to sleep Time Seen by Provider: 08/14/21 20:30 History of Present Illness: Patient is a 26-year-old male comes to the ED because he is having trouble sleeping. For the last 2 weeks he has had trouble getting sleep. He says he is currently homeless and living in a homeless long term. He states that he takes Seroquel every night. He says he usually is on his phone throughout the night and goes to bed late. Denies any other symptoms. He states he would just like to get a good night sleep. He was also asking if he could just sleep here in the ED. Denies any SI, HI or any other psych symptoms. Associated symptoms: Deny chest pain, dyspnea, headache(s), nausea, rash, palpitations or vomiting Review of Systems Const: Reports: change in sleep pattern; Denies: fever(s), chills or fatigue Eyes: Denies: change in vision or eye discomfort ENMT: Denies: throat pain, odynophagia, nasal discharge or nasal congestion Card: Denies: chest pain, palpitations, edema, swelling of feet/ankles, dysp magi on exertion or orthopnea Resp: Denies: dyspnea, productive cough or non-productive cough GI: Denies: abdominal pain, nausea, vomiting, diarrhea, constipation or hematochezia : Denies: flank pain, difficulty urinating, dysuria or hematuria Musc: Denies: neck pain, back pain or extremity swelling Skin/Breast: Denies: rash or new lesions Neuro: Denies: headache(s), numbness in extremities or weakness in extremities Psych: Reports: sleeping less; Denies: suicidal ideation or homicidal ideation PFS ED PFSH: Medical History Agoraphobia with panic disorder Generalized anxiety disorder Major depressive disorder, recurrent, moderate Psychiatric care Psychiatric care Right bundle branch block (RBBB) on electrocardiogram (ECG) Schizophrenia ST elevation Suicide ideation Family History Grandfather Diabetes Social History Smoking and tobacco status: current every day smoker cigarettes Packs smoked per day: 0.25 Years cigarettes smoked: 4 Quit status (tobacco): has tried quititng Second hand smoke exposure: Yes (mother and stepfather) Smoking risk assessment/counseling performed?: Yes Alcohol intake: former Adopted: No Caregiver/support person: No Lives independently: No Household members: other Details: Mother, Step father, 4 brothers Housing: House Marital status: Single Number of children: 0 Number of grandchildren: 0 Highest education level completed: GED or Equivalent Education level details: 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 service: No Current occupational status: unemployed Pets and animals: No History of recent travel: No Leisure activites: exercise Sexually active: No Current gender identity: Male Ashley/Amish: Unknown Special ashley needs: No Agree to transfusion: Yes Financial difficulty paying for basics: Somewhat Hard Physical Exam Const: COMMON NORMALS: no acute distress, patient oriented x3, healthy appearing and alert HENMT: COMMON NORMALS: normocephalic HEAD & SCALP: normocephalic MOUTH: Normal oral and palatal mucosa present THROAT: posterior oropharynx normal and uvula midline Neck/C-Spine: COMMON NORMALS: supple GENERAL: Yes normal visual inspection Resp: COMMON NORMALS: normal respiratory effort, No retractions, No use of accessory muscles and clear to auscultation bilaterally AUSCULTATION: clear to auscultation bilaterally Cardio: COMMON NORMALS: regular rate, regular rhythm, S1 normal heart sound present, S2 normal heart sound present, No gallops present (Cardio), No clicks present (Cardio), No murmurs present (Cardio) and Peripheral pulses 2+ throughout RATE: regular rate RHYTHM: regular rhythm HEART SOUNDS: S1 normal heart sound present and S2 normal heart sound present PERIPHERAL PULSES: Peripheral pulses 2+ throughout GI: COMMON NORMALS: Normal to inspection, nondistended, normoactive bowel sounds present, Soft to palpation, non-tender and no masses PALPATION: Yes Soft to palpation : COMMON NORMALS: Yes no CVA tenderness BLADDER/KIDNEY EXAM: Yes no CVA tenderness Back/Pelvis: COMMON NORMALS: no CVA tenderness Extremity: COMMON NORMALS: normal to inspection Neuro: COMMON NORMALS: patient oriented x3 and moves all extremities SENSORIUM/ORIENTATION: Yes alert Psych: THOUGHT CONTENT: No Suicidality present and No Homicidality present Skin: GENERAL SKIN EXAM: dry skin Course Vital Signs: Vital signs: Vital Signs Temperature 97.4 F L 02/04/22 17:56 Pulse Rate 81 08/14/21 21:02 Respiratory Rate 16 08/14/21 21:02 Blood Pressure 143/83 08/14/21 21:02 Pulse Oximetry 98 08/14/21 21:02 [facility] - General Adult Medical Decision Making Patient is a 26-year-old male who comes to the ED stating he is having trouble sleeping. Patient currently lives at homeless long term. He takes Seroquel nightly to help with sleep. He denies any other symptoms such as HI or SI. Vitals are stable. Patient appears in no acute distress or pain and the rest of exam is benign. Mentally stable and answered all my questions accordingly. Patient was diagnosed with trouble getting to sleep and discharged home with a prescription for some melatonin 5 mg tablets for him to take nightly as needed for sleep. He was told to follow-up with his PCP in 7 to 10 days for reevaluation. Return to ED precautions given. Patient understood and agree with plan. Discharge Plan Discharge Patient Disposition: Home Clinical Impression: Trouble getting to sleep Condition: Stable Prescriptions: New melatonin 5 mg capsule 5 mg PO .nightly PRN (Reason: sleep) Qty: 30 0RF No Action paroxetine HCl 20 mg tablet 20 mg PO DAILY 30 Days Qty: 30 1RF Discharge Orders: Discharge ED (Routine); Ordered 08/14/21 Ordered By: Charles Chin Discharge Diet: Regular Discharge Activity: Resume usual activity Activity Restrictions/Additional Instructions: Follow-up with medical provider as directed in 3 to 5 days for reevaluation. Take medications as prescribed. Practice good sleep habits such as going to bed at the same time nightly and not looking at phone or watching TV while in bed trying to fall asleep. Return to the ER or your medical provider if condition worsens. Please read and understand discharge instructions. Thank you for choosing [facility] for your healthcare needs today. Please realize this is an emergency room and that we are providing you with a medical screening exam and this may not be complete and all inclusive of all the testing and or work up that you may need to determine your ailment or severity of your illness. It is very important that you follow up as instructed or that you return to the Emergency Department should you have concerns or if your condition changes or worsens in any way. Coding Level of Care Code ED Finishing Department Supervisor for Jamal Bell Exam Comprehensive
[2021-08-14 21:02] VITALS: BP 143/83; PULSE 81; RESP 16; O2SAT 98
== END 2021-08-14 21:03 | disposition home or self-care (01) ==
PROVIDERS: Emergency Provider Physician Assistant
DX: G47.9 Sleep disorder, unspecified (principal); F17.210 Nicotine dependence, cigarettes, uncomplicated
CPT/HCPCS: 99282

== ENCOUNTER → 2021-09-01 09:35 | Outpatient (BNVA) | payer MEDICAID, SELFPAY | PROVIDERS: Visit Provider Psychiatry & Neurology Psychiatry | DX: F20.9 Schizophrenia, unspecified (principal); F32.9 Major depressive disorder, single episode, unspecified; F41.1 Generalized anxiety disorder; R45.851 Suicidal ideations | CPT/HCPCS: 99214 ==

== ENCOUNTER → 2021-09-17 08:37 | Outpatient (BNVA) | payer MEDICAID, SELFPAY | PROVIDERS: Visit Provider Counselor Mental Health | DX: F20.9 Schizophrenia, unspecified (principal) | CPT/HCPCS: 90834 ==

== ENCOUNTER 2021-10-01 18:07 | Inpatient (IN) | payer MEDICAID, SELFPAY ==
[2021-10-01] VITALS (7 sets, daily range): BP systolic 117–144; BP diastolic 67–89; PULSE 82–98; RESP 16–18; O2SAT 95–99
--- NOTE | 2021-10-01 18:22 | W.ED.PSYCHS ---
HPI - Psych General: Chief Complaint: Psychiatric Symptoms Stated Complaint: MHE, HALLUCINATIONS, PARANOID Time Seen by Provider: 10/01/21 18:19 History of Present Illness: Mr Hanley is a 26-year-old gentleman with significant past medical history of psychiatric disorder who presents to the emergency department due to 96-hour hold. The patient himself is unsure as to what the concern might have been or who filed 96-hour paperwork on him. He denies suicidal or homicidal ideation. He denies hallucinations or feeling threatened/concerns regarding it being following him. He reports compliance with his medications. He endorses currently living with his mom and believes things are going okay. He otherwise denies medical complaints. Due to a denial of symptoms there is no course, intensity, provoking, exacerbating, or alleviating factors identified. Per 96-hour paperwork the patient has not been taking his medication and has been wandering around. Additionally he appears to be talking to himself and interacting with internal stimuli. He becomes focused and paranoid regarding perceived world events. Review of Systems General: Reports: 10 or more systems reviewed and unremarkable except in HPI and below PFSH ED PFSH: Medical History Agoraphobia with panic disorder Generalized anxiety disorder Major depressive disorder, recurrent, moderate Psychiatric care Psychiatric care Right bundle branch block (RBBB) on electrocardiogram (ECG) Schizophrenia ST elevation Suicide ideation Family History Grandfather Diabetes Social History Smoking and tobacco status: current every day smoker cigarettes Packs smoked per day: 0.25 Years cigarettes smoked: 4 Quit status (tobacco): has tried quititng Second hand smoke exposure: Yes (mother and stepfather) Smoking risk assessment/counseling performed?: Yes Alcohol intake: former Adopted: No Caregiver/support person: No Lives independently: No Household members: other Details: Mother, Step father, 4 brothers Housing: House Marital status: Single Number of children: 0 Number of grandchildren: 0 Highest education level completed: GED or Equivalent Education level details: 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 service: No Current occupational status: unemployed Pets and animals: No History of recent travel: No Leisure activites: exercise Sexually active: No Current gender identity: Male Ashley/Oriental Orthodox: Unknown Special ashley needs: No Agree to transfusion: Yes Financial difficulty paying for basics: Somewhat Hard Physical Exam Const: COMMON NORMALS: alert GENERAL APPEARANCE: cooperative and well developed HENMT: COMMON NORMALS: normocephalic and atraumatic HEAD & SCALP: normocephalic and atraumatic Eye: COMMON NORMALS: conjunctivae normal CONJUNCTIVA: Yes conjunctivae normal SCLERA: sclerae normal Neck/C-Spine: COMMON NORMALS: supple GENERAL: Yes trachea midline Resp: COMMON NORMALS: normal respiratory effort and clear to auscultation bilaterally EFFORT & INSPECTION: Yes able to speak in complete sentences AUSCULTATION: clear to auscultation bilaterally Cardio: COMMON NORMALS: regular rate and regular rhythm RATE: regular rate RHYTHM: regular rhythm GI: COMMON NORMALS: Soft to palpation PALPATION: Yes Soft to palpation and No Tenderness to palpation present (GI) PERCUSSION: normal to percussion Extremity: GENERAL: Yes normal exam except as noted and No edema Neuro: COMMON NORMALS: moves all extremities SENSORIUM/ORIENTATION: Yes alert and No Orientation impaired Psych: COMMON NORMALS: cooperative SPEECH: Yes Other speech symptoms (pause before responses, ?internal stimuli) MOOD & AFFECT: Yes Blunted affect present Course ED course: - Patient was seen and evaluated by me at bedside -Vital signs obtained - Initial evaluation notable for: Cooperative patient. Mildly abnormal affect. - Labs personally interpreted by me - Labs notable for mild leukocytosis, normal hemoglobin. No acute electrolyte derangement. -Case discussed with psychiatry service. Patient to be admitted to neuropsych unit. -Based on ED evaluation at this point there is no obvious condition that would preclude the patient from inpatient management of psychiatric concerns. He is agreeable for admission for psychiatric evaluation. Note: Click bubbles or prepopulated velarde in note writing are used for assistance with data collection and billing and are inherently more limited than narrative and other text portions of this note. Please use narrative for additional clinical history and defer to narrative/free test for any case of contradictory information. If information appears in only free text or click bubble it should be considered present or absent as reported. Please contact note medical technical writer for clarifications of clinical information or contradictory information. MDM is a brief summary, contradictory or erroneous seeming information should be clarified and full note should be reviewed. Vital Signs: Vital signs: Vital Signs Temperature 98.6 F 10/06/21 22:00 Pulse Rate 71 10/06/21 22:00 Respiratory Rate 16 10/06/21 22:00 Blood Pressure 110/71 10/06/21 22:00 Pulse Oximetry 93 10/06/21 22:00 [facility] - Psych Medical Decision Making 26-year-old gentleman who presented with history of psychiatric disorder and family requested 96-hour hold filed through the court. Patient calm and cooperative and largely denies complaints however he is agreeable to admission for further evaluation. Medical Records I reviewed the patient's medical records. Lab Data I reviewed the patient's lab results. : 10/01/21 18:49 10/01/21 18:49 Laboratory Results WBC 10.2 10^3/uL (4.0-10.0) H 10/01/21 18:49 RBC 5.89 10^6/uL (4.1-5.3) H 10/01/21 18:49 Hgb 16.1 g/dL (11.7-16.6) 10/01/21 18:49 Hct 51.0 % (42.0-52.0) 10/01/21 18:49 MCV 86.6 fl (80-94) 10/01/21 18:49 MCH 27.3 pg (28.0-34.0) L 10/01/21 18:49 MCHC 31.6 g/dL (30.0-36.0) 10/01/21 18:49 RDW 14.0 % (12.1-15.1) 10/01/21 18:49 Plt Count 303 10^3/cmm (130-400) 10/01/21 18:49 MPV 10.1 fL (7.4-10.4) 10/01/21 18:49 Neut % (Auto) 82.7 % 10/01/21 18:49 Lymph % (Auto) 11.1 % 10/01/21 18:49 [place] % (Auto) 5.3 % 10/01/21 18:49 Eos % (Auto) 0.1 % 10/01/21 18:49 Baso % (Auto) 0.4 % 10/01/21 18:49 Neut # (Auto) 8.47 10^3/uL (1.8-7.7) H 10/01/21 18:49 Lymph # (Auto) 1.1 10^3/uL (0.8-4.8) 10/01/21 18:49 [place] # (Auto) 0.5 10^3/uL (0.2-0.9) 10/01/21 18:49 Eos # (Auto) 0.0 10^3/uL (0.0-0.8) 10/01/21 18:49 Baso # (Auto) 0.0 10^3/uL (0.0-0.1) 10/01/21 18:49 Nucleated RBC % (auto) 0 % 10/01/21 18:49 Nucleated RBCs # 0.0 /100WBC 10/01/21 18:49 Sodium 140 mmol/L (136-145) 10/01/21 18:49 Potassium 3.7 mmol/L (3.5-5.1) 10/01/21 18:49 Chloride 101 mmol/L (98-107) 10/01/21 18:49 Carbon Dioxide 25 mmol/L (22-29) 10/01/21 18:49 Anion Gap 17.7 (5-19) 10/01/21 18:49 BUN 8 mg/dL (6-20) 10/01/21 18:49 Creatinine 1.0 mg/dL (0.7-1.2) 10/01/21 18:49 GFR Calculation 110.2 mL/min (90-130) 10/01/21 18:49 Glucose 121 mg/dL (65-115) H 10/01/21 18:49 Calculated Osmolality 290 mOsm/kg (285-295) 10/01/21 18:49 Calcium 10.4 mg/dL (8.5-10.5) 10/01/21 18:49 Total Bilirubin 0.3 mg/dL (0.15-1.2) 10/01/21 18:49 AST 28 U/L (0-40) 10/01/21 18:49 ALT 35 U/L (0-41) 10/01/21 18:49 Alkaline Phosphatase 86 IU/L (40-130) 10/01/21 18:49 Total Protein 8.0 g/dL (6.6-8.7) 10/01/21 18:49 Albumin 4.9 g/dL (3.5-5.2) 10/01/21 18:49 Globulin 3.1 g/dL (1.3-4.6) 10/01/21 18:49 Salicylates < 0.3 mg/dL (3-10) L 10/01/21 18:49 Urine Opiates Screen Negative ng/mL (Negative) 10/01/21 18:46 Acetaminophen < 5.0 ug/mL (10-30) L 10/01/21 18:49 Ur Barbiturates Screen Negative ng/mL (Negative) 10/01/21 18:46 Ur Phencyclidine Scrn Negative ng/mL (Negative) 10/01/21 18:46 Ur Amphetamines Screen Negative ng/mL (Negative) 10/01/21 18:46 U Benzodiazepines Scrn Negative ng/mL (Negative) 10/01/21 18:46 Urine Cocaine Screen Negative ng/mL (Negative) 10/01/21 18:46 U Marijuana (THC) Screen Negative ng/mL (Negative) 10/01/21 18:46 Ethyl Alcohol < 10 mg/dL (0-10) 10/01/21 18:49 EKG Data EKG 1: I personally reviewed and interpreted this EKG as follows: EKG interpretation date: 10/01/21 EKG interpretation time: 19:05 Interpretation: Twelve-lead EKG shows a regular rhythm at a rate of 102. WI interval 144. QRS duration 110. QTc 4 7. Left [place] deviation Interpretation: Sinus rhythm. Nonspecific abnormalities. Discharge Plan Discharge Patient Disposition: Admitted As Inpatient Admit Provider: Carmelo Avila Clinical Impression: Schizophrenia, Psychiatric care Condition: Stable Coding Level of Care Code ED Clinical Assessment Manager for Jamal Bell
[2021-10-01 18:57] LABS: Basophils % 0.4 %; Eosinophils % 0.1 %; Hemoglobin 16.1 g/dL (11.7-16.6); Lymphocytes # 1.1 10^3/uL (0.8-4.8); Lymphocytes % 11.1 %; Mean Corpuscular HGB Conc 31.6 g/dL (30.0-36.0); Mean Corpuscular Hemoglobin 27.3 pg (28.0-34.0); Mean Corpuscular Volume 86.6 fl (80-94); Mean Platelet Volume 10.1 fL (7.4-10.4); Monocytes # 0.5 10^3/uL (0.2-0.9); Monocytes % 5.3 %; Neutrophils # 8.47 10^3/uL (1.8-7.7); Neutrophils % 82.7 %; Nucleated Red Blood Cells % 0 %; Platelet Count 303 10^3/cmm (130-400); Red Blood Count 5.89 10^6/uL (4.1-5.3); White Blood Count 10.2 10^3/uL (4.0-10.0)
[2021-10-01 19:17] LABS: Amphetamines Screen Urine Negative (Negative); Barbiturates Screen Urine Negative (Negative); Benzodiazepines Screen Urine Negative (Negative); Cocaine Screen Urine Negative (Negative); Opiate Screen Urine Negative (Negative); PCP Screen Urine Negative (Negative); THC Screen Urine Negative (Negative)
[2021-10-01 19:28] LABS: Alanine Aminotransferase 35 U/L (0-41); Albumin Level 4.9 g/dL (3.5-5.2); Alkaline Phosphatase 86 IU/L (40-130); Anion Gap 17.7 (5-19); Aspartate Amino Transferase 28 U/L (0-40); Blood Urea Nitrogen 8 mg/dL (6-20); Calcium 10.4 mg/dL (8.5-10.5); Carbon Dioxide 25 mmol/L (22-29); Chloride 101 mmol/L (98-107); Globulin 3.1 g/dL (1.3-4.6); Glomerular Filtration Rate 110.2 mL/min (90-130); Glucose 121 mg/dL (65-115); Osmolality Calculated 290 mOsm/kg (285-295); Potassium 3.7 mmol/L (3.5-5.1); Sodium 140 mmol/L (136-145); Total Bilirubin 0.3 mg/dL (0.15-1.2)
[2021-10-01 19:31] LABS: Acetaminophen < 5.0 ug/mL (10-30); Alcohol Level < 10 mg/dL (0-10); Salicylate < 0.3 mg/dL (3-10)
[2021-10-02] VITALS: BP 118/68; PULSE 84; RESP 16; O2SAT 96
[2021-10-02] MEDS: LORazepam 1 mg Tablet PO (00:48)
[2021-10-02 01:00] VITALS: BP 121/69; PULSE 82; RESP 16; O2SAT 96
[2021-10-02 01:29] VITALS: BP 127/79; PULSE 90; RESP 18; TEMP 36.4; O2SAT 98
[2021-10-02 06:00] VITALS: BP 114/71; PULSE 82; RESP 17; TEMP 36.9; O2SAT 98
[2021-10-02] MEDS: nicotine 2 mg Gum BUCCAL ×4 (07:38→22:32)
[2021-10-02] MEDS: doxepin 50 mg Capsule PO (09:30)
[2021-10-02] MEDS: PARoxetine 20 mg Tablet PO (09:30)
[2021-10-02 14:00] VITALS: BP 111/64; PULSE 60; RESP 16; TEMP 36.6; O2SAT 97
--- NOTE | 2021-10-02 15:19 | W.PM.NPUH&PS ---
Providers/Chief Complaint Admitting Physician: Carmelo Avila MD Chief Complaint: MHE, HALLUCINATIONS, PARANOID HPI NPU History of Present Illness Luis Fernando Hanley is a 26 year old male who presented to the emergency department the following report: Chief Complaint: Psychiatric Symptoms Stated Complaint: MHE, HALLUCINATIONS, PARANOID Time Seen by Provider: 10/01/21 18:19 History of Present Illness:?? Mr Hanley is a 26-year-old gentleman with significant past medical history of psychiatric disorder who presents to the emergency department due to 96-hour hold.? The patient himself is unsure as to what the concern might have been or who filed 96-hour paperwork on him.? He denies suicidal or homicidal ideation.? He denies hallucinations or feeling threatened/concerns regarding it being following him.? He reports compliance with his medications.? He endorses currently living with his mom and believes things are going okay.? He otherwise denies medical complaints.? Due to a denial of symptoms there is no course, intensity, provoking, exacerbating, or alleviating factors identified. Per 96-hour paperwork the patient has not been taking his medication and has been wandering around.? Additionally he appears to be talking to himself and interacting with internal stimuli.? He becomes focused and paranoid regarding perceived world events. He was admitted to the neuropsychiatric unit for definitive treatment of those issues. He presents today reporting that he is any sure was going on other than he was not doing well. He was somewhat ambivalent about his adherence with medication but reported that he was taking it. He has been associated with a ERE program and I reviewed the notes and talk to him about what the notes were staying in the ambiguous as he has seemed to be when they were trying to work with him. He reports that his living arrangement has been sporadic. At times living with grandma but as is documented in the notes there has [place] [facility] [place] times at [facility]. He could not really articulate what his plan should or would be. He reported that he was fine taking his medication that he was to be safe and not causing problems and felt he was okay overall. He had been noted going up the hallway kind of speaking to himself. At 1 time he was in the room and the patient gathering area by himself seeming to shadow box. There are other reports of him shadow boxing coming fairly close to hitting the parker. He had no explanation for these behaviors. He did talk about hoping to go home to his grandmother's house and invited him to reach out to her to see what she says from documents I have read it seems like she is concerned about his behavior and not feeling he is safe or healthy enough to go home. He denies any changes since his last hospitalization, which appears to be 05/27/2021. An excerpt from that note is included below for historical context given his limited ability as a historian and his current frame of mind. Per his 05/27/2021 [facility] inpatient psychiatric evaluation: History of Present Illness Lui sFernando Hanley is a 25 year old male who presented to the emergency department with the following report: Chief complaint: Psychiatric Symptoms Stated complaint: SI Time Seen by Provider: 05/26/21 01:17 History of Present Illness:?? HPI narrative: HPI: [25]yo patient w/ hx of depression BIBA for SI and depression. Patient tells me he plans to overdose if he were to go home today. Symptoms of SI have gotten worse over the last few days. On arrival, the patient is AAOx3 and cooperative with my evaluation. No focal complaints of chest pain, shortness of breath, palpitations, N/V, focal GI/ complaints. +SI currently. No complaints of hallucinations. Onset: chronic Duration: ongoing Location: home Severity: severe. He has no negative treatment of those issues.? He presents today reporting that things did not go well after discharge.? He reports that he went to his mom's place and she did not feel that he was well enough at 1 point he got frustrated with him.? He then went to his grandmother's place and they just did not work out well.? He reports that he was taking his medication but that symptoms began to worsen.? We discussed as we did in his last hospitalization the importance of him having some stability to manifest his recovery.? The ERE program came to visit today and we will catch up with him later and determine what they were able to find as possible options to help him in his residential stability.? We discussed the risk benefits and alternatives to possibly changing the Seroquel and other medications tomorrow however during his last stay he certainly got better each day on those medications when he was taking them daily and he understood agreed proceed as is documented in this note.? An excerpt from his discharge 05/19/2021 is included below for context given that there are no substantive changes. Per his 05/19/2021 [facility] inpatient psychiatric discharge summary: Discharge Diagnosis (1) Suicide ideation: ? ? ? Status: Resolved (2) Depression: ? ? ? Status: Acute ? ? ? Qualifiers: ? Depression Type: unspecified? Qualified Code(s): F32.9 - Major depressive disorder, single episode, unspecified (3) Generalized anxiety disorder: ? ? ? Status: Acute (4) Schizophrenia: ? ? ? Status: Acute ? ? ? Qualifiers: ? Schizophrenia type: unspecified? Qualified Code(s): F20.9 - Schizophrenia, unspecified (5) ST elevation: ? ? ? Status: Acute (6) Right bundle branch block (RBBB) on electrocardiogram (ECG): ? ? ? Status: Acute (7) Agoraphobia with panic disorder: ? ? ? Status: Acute (8) Major depressive disorder, recurrent, moderate: ? ? ? Status: Acute Reason for Visit Reason for Visit:?? 96: W/LAW ENFORCEMENT? Brief History: History of Present Illness Luis Fernando Hanley is a 25 year old male who presented to the emergency department with the following report: Chief Complaint: Psychiatric Symptoms Stated Complaint: 96: W/LAW ENFORCEMENT Time Seen by Provider: 05/13/21 13:34 History of Present Illness:?? HPI Narrative: 25-year-old male presents with suicidal ideation.? By Police Department due to concern that he may harm himself.? Denies any desire to harm anyone else.? Does not have a concrete plan.? Denies any hallucinations or delusions.? Denies any focal medical complaint or focal pain. He is admitted to the neuropsychiatric unit for definitive treatment of those issues. He presents today reporting that he has been hospitalized a lot of times in his life due to may need to recall. He reports the last time he was at a hospital was about a week ago in [place] but was not admitted. He denies outpatient services but is clearly confused because documentation of outpatient services at [facility] has been in the system as recently as 05/13/2021. He appears to be a questionable historian with some factual pieces seeming consistent with previous notes and other parts being inconsistent however he does not appear to have a motive did not answer the questions authentically. An excerpt is March 07, 2019 evaluation with this selling underwriter as below for context. He reports that recently he had not been on medication. But Klonopin, on Seroquel trazodone were recently reconciled an appointment he had yesterday. He endorses he smokes about a pack of cigarettes a day, denies alcohol marijuana or any other illicit drug use. He reports that he does not have suicidal thoughts that would not stop. He reports that he has been staying at his mom's house but also he had gone to [place] hopes he would get a job, but that did not work and he was staying at [employer]. He reports that his mom is about improved with the job he is liking it was in [place]. His goal is to get a job and live on his own. He reports he had 1 suicide attempt about a year or 2 ago. He denies any major changes in psychosocial history. Per his [facility] inpatient psychiatric evaluation 02/27/2019: Date of Service: Feb 27, 2019 Chief Complaint: Feeling depressed and suicidal. HPI: Patient presents today as a fairly poor historian.? He reports that he has been feeling suicidal for weeks and was recently discharged from the hospital.? He reports that he had no difficulties as a teen and that at 15 years old he started experimenting with alcohol and marijuana mostly marijuana.? There was a point where he was smoking marijuana daily.? He reports that he has since 19 stopped using essentially any drugs of abuse.? He reports that he has been staying with his grandparents recently and has just had increasing levels of feelings of hopelessness, helplessness, worthlessness, feeling suicidal and having anxiety.? Having depression.? He is unclear if there are any contributing factors or reasons why he is feeling this way.? He does report a significant period of homelessness before he recently moved in with his maternal grandparents.? He reports that he was kicked out by his mother when he turned 19 and that he had been homeless for the last almost 4 years.? He can give no clear information on her description of why he was unable to get a job or get his footing.? He denies most symptoms of psychosis but ultimately does report some paranoia and confusion. Per ED eval: HISTORY OF PRESENT ILLNESS Chief Complaint: ANXIOUS and SUICIDAL THOUGHTS.? This started 3 weeks ago. (23 yo Male presents to ED with complaints of anxiety and suicidal ideations. Pt states that he has been feeling like life is meaningless and he has been thinking about killing himself. Pt states that he has had paranoid schizophrenia and anxiety in the past. Pt states that he is not hearing any voices right now.). ? No situational problems or recent drug use or alcohol consumption.? He has not exhibited a behavior change, was not found wandering and is compliant with medication.? Has had suicidal thoughts but been eating or sleeping or not been depressed.? He has had anxiety.? No anger, unusual behavior, paranoia, delusions or self-injury inflicted.? No hallucinations. ? The symptoms are described as mild.? No injury is present. ? Similar symptoms previously. ? Recent medical care: Seen for in ED on 08/03/18 for MHE DX Paranoid Schizophrenia. ? REVIEW OF SYSTEMS No headache, dizziness, weakness, chest pain or palpitations.? No abdominal pain, vomiting, diarrhea, black stools or numbness.? No fever, sore throat, cough, difficulty breathing or urinary frequency.? No skin rash, enlarged lymph nodes, joint pain, weight loss or laceration.? All other systems reviewed and are negative. ? PAST HISTORY See nurses notes.? ( PCP-none).? Anxiety.? Bipolar disorder.? Schizophrenia. ? Surgeries: No history of previous surgery. ? SOCIAL HISTORY Smoker- current status unknown (Chews tobacco).? Never smoker.? Occasional alcohol use. Last drink was 24 to 48 hours ago.? No drug use. ? ADDITIONAL NOTES The nursing notes have been reviewed. ? PHYSICAL EXAM Vital Signs: 02/26/2019 17:04 BP: 137/79. HR: 70. RR: 20. O2 saturation: 96%. Temp: 97.8 F. Appearance: Alert.? No acute distress.? Appearance is normal. Eyes: Pupils equal, round and reactive to light. Neck: Normal inspection.? Neck supple. CVS: Normal heart rate and rhythm.? Heart sounds normal. Respiratory: Breath sounds normal.? Chest nontender. Abdomen: Soft and nontender. Back: No tenderness. Skin: Skin warm and dry.? Normal skin color.? Normal skin turgor. Extremities: Extremities exhibit normal ROM.? No lower extremity edema. Psych / Neuro: Oriented X 3.? Mood and affect normal.? Speech normal. Cognition normal.? Thought process normal.? He expresses suicidal thoughts. Insight and judgement normal.? Cranial nerves normal (as tested).? No cerebellar findings.? No motor deficit.? No sensory deficit.? Reflexes normal. Allergies: Coded Allergies: ?? ? NO KNOWN ALLERGIES (Unverified , 08/03/18) Active Meds: Current Hospital Medications: ?Medications ? (Trade) ?Dose ?Ordered ?Sig/Cristian ?Route ?PRN Reason ?Start Time ?Stop Time Status Last Admin Dose Admin ?Lorazepam ? (Ativan Tab) ?0.5 mg ?Q4H? PRN ?PO ?FOR MILD ANXIETY ?02/26/19 19:00 ?Lorazepam ? (Ativan Tab) ?1 mg ?Q4H? PRN ?PO ?FOR MODERATE ANXIETY ?02/26/19 19:00 ?Lorazepam ? (Ativan Tab) ?2 mg ?Q4H? PRN ?PO ?FOR SEVERE ANXIETY ?02/26/19 19:00 ?Lorazepam ? (Ativan Inj) ?2 mg ?Q4H? PRN ?IM ?For Severe Aggression ?02/26/19 19:00 ?Haloperidol ?Lactate ? (Haldol Inj) ?5 mg ?Q4H? PRN ?IM ?Severe Aggression ?02/26/19 19:00 ?Diphenhydramine ?HCl ? (Benadryl Inj) ?50 mg ?ONCE? PRN ?IV ?Severe Extrapyramidal Symptoms ?02/26/19 19:00 ?Benztropine ?Mesylate ? (Cogentin Tab) ?1 mg ?BID? PRN ?PO ?Mild Extrapyramidal symptoms ?02/26/19 19:00 ?Benztropine ?Mesylate ? (Cogentin Inj) ?1 mg ?ONCE? PRN ?IM ?Severe Extrapyramidal Symptom ?02/26/19 19:00 ?Acetaminophen ? (Tylenol Tab) ?650 mg ?Q4H? PRN ?PO ?FOR MILD PAIN ?02/26/19 19:00 ?Trazodone HCl ? (Trazodone) ?50 mg ?BEDTIME? PRN ?PO ?FOR SLEEP ?02/26/19 19:00 ?Nicotine ? (Nicoderm Patch) ?21 mg ?DAILY? PRN ?TD ?FOR WITHDRAWAL ?02/26/19 19:00 ?Nicotine ?Polacrilex ? (Nicotine Gum) ?2 mg ?Q2H? PRN ?PO ?Withdrawal ?02/26/19 19:00 ?Haloperidol ? (Haldol Tab) ?5 mg ?Q4H? PRN ?PO ?For agitation ?02/26/19 19:00 ?Lorazepam ? (Ativan Tab) ?2 mg ?Q4H? PRN ?PO ?FOR AGITATION ?02/26/19 19:00 ?Clonazepam ? (Klonopin) ?0.5 mg ?BID ?PO ? ?02/26/19 22:00 ? ? 02/27/19 09:39 ? ?Paroxetine HCl ? (Paxil) ?20 mg ?DAILY ?PO ? ?02/27/19 10:00 ? ? 02/27/19 09:39 ? ?Olanzapine ? (Zyprexa Tab) ?20 mg ?BEDTIME ?PO ? ?02/26/19 22:00 ? ? 02/26/19 21:17 ? Past Medical History Other Family Medical History: Significant mental health issues including schizophrenia. No suicide attempts. Other Past Social History: Developmental history: He reports she is a product of a normal .? He reports he learned to walk and talk and met his developmental milestones on time.? He denies having speech therapy, learning support, emotional support and special education classes. Psychosocial history: He reports that he the only product of the union between his mother and father who stayed together until he was about 3 years old.? He endorses having 5 half-brothers through his mother and 3? 1/2 brothers and a half sister through his father.? He reports his childhood was good and he denies any emotional, physical or sexual abuse.? He made it through the 10th grade in high school and got his GED when he was around 19 years old.? He reports that he was really good in track? had no additional training after high school.? He is heterosexual and reports he is never really had a relationship.? He has never been , he has no children, he is never been in the , and endorses being a Anglican.? His only work history was to the [employer] for about 6 months and he lives with his maternal grandparents. Hospital Course Hospital Course He slowly acclimated to the individual, group and milieu therapies provided.? He was restarted on his trazodone 100 mg p.o. nightly, Seroquel was started at a lower dose of 300 mg p.o. nightly he continued on Remeron 15 mg p.o. nightly.? He tolerated these doses and showed steady improvement during his stay.? We attempted to work with him to find a more stable living arrangements given the volatility and expectations in his grandmother and mother's homes but he was focused on leaving and had no credible lethality.? He was able to contract for safety outside hospital prior to discharge.? During the hospitalization, patient had routine laboratory studies which were within normal limits except for few outliers.? Additionally there was a general medical evaluation which was also within normal limits and revealed no new acute processes. Discharge Summary: At the time of discharge, lethality was denied and psychosis was resolving.? Mood and anxiety were well managed.? Patient endorsed a plan to follow-up with the aftercare recommendations of the treatment team.? Patient was evaluated and deemed to be absent credible lethality, and had achieved the maximum benefit from an inpatient hospitalization, so was discharged. Meds NPU Home Medications Medication Instructions Recorded Confirmed Last Taken Type paroxetine HCl 20 mg tablet 20 mg PO DAILY 30 Days #30 tab 06/29/21 10/01/21 Unknown Rx doxepin 50 mg capsule 50 mg PO DAILY 09/01/21 10/01/21 Unknown History quetiapine 100 mg tablet 200 mg PO BEDTIME 10/01/21 10/01/21 Unknown History doxepin 50 mg capsule 50 mg PO DAILY 10/02/21 10/02/21 Unknown History paroxetine HCl 20 mg tablet 20 mg PO DAILY 10/02/21 10/02/21 Unknown History quetiapine 200 mg tablet 200 mg PO BEDTIME 10/02/21 10/02/21 Unknown History Allergies Allergy/AdvReac Type Severity Reaction Status Date / Time No Known Allergies Allergy Verified 09/01/21 09:42 PFSH NPU PFSH: Medical History Agoraphobia with panic disorder Generalized anxiety disorder Major depressive disorder, recurrent, moderate Psychiatric care Psychiatric care Right bundle branch block (RBBB) on electrocardiogram (ECG) Schizophrenia ST elevation Suicide ideation Family History Grandfather Diabetes Social History Smoking and tobacco status: current every day smoker cigarettes Packs smoked per day: 0.25 Years cigarettes smoked: 4 Quit status (tobacco): has tried quititng Second hand smoke exposure: Yes (mother and stepfather) Smoking risk assessment/counseling performed?: Yes Alcohol intake: former Adopted: No Caregiver/support person: No Lives independently: No Household members: other Details: Mother, Step father, 4 brothers Housing: House Marital status: Single Number of children: 0 Number of grandchildren: 0 Highest education level completed: GED or Equivalent Education level details: 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 service: No Current occupational status: unemployed Pets and animals: No History of recent travel: No Leisure activites: exercise Sexually active: No Current gender identity: Male Ashley/Advent: Unknown Special ashley needs: No Agree to transfusion: Yes Financial difficulty paying for basics: Somewhat Hard Mental Status Exam MSE Comments: This is a well-nourished well-developed -[place] male with hospital scrubs on with limited grooming and eye contact. No abnormal movements except for mild psychomotor agitation. Cooperative with exam in no acute distress. Speech was limited but normal rate and volume. Mood described as okay, affect guarded. Thought process organized. Thought content: Patient denied suicidal or homicidal ideation, there were no delusions reported but paranoid or persecutory delusions seem to exist, did not appear to be attending to internal stimuli during the conversation but later did appear internally preoccupied but he denied auditory or visual hallucinations. Attention and concentration were limited and memory was mostly reliable but none were formally tested. He is alert and oriented times person and place. Insight and judgment are impaired, impulse control is limited. Vitals/I&O/Wt Last Vital Signs Temp 97.8 F 10/02/21 14:00 Pulse 60 03/25/22 14:00 Resp 16 10/02/21 14:00 BP 111/64 10/02/21 14:00 Pulse Ox 97 10/02/21 14:00 Data NPU : 10/01/21 18:49 10/01/21 18:49 A&P Assessment and plan (1) Generalized anxiety disorder: Status: Acute (2) Depression: Status: Acute Qualifiers: Depression Type: unspecified Qualified Code(s): F32.9 - Major depressive disorder, single episode, unspecified (3) Schizophrenia: Status: Acute (4) Psychosis: Status: Acute Plan This is a 25-year-old -[place] male with a long history of mental health issues including schizophrenia and anxiety as well as depression who presents on a 96-hour hold after reports of strange, psychotic behavior. 1.? Continue current medication. We will explore whether medication changes need to be made and consider whether adherence is an issue. 2.? Continue every 15 minute checks for safety. 3.? Encourage individual, group and milieu therapies. 4.? We will work with the ERE program for stable discharge plan. Involuntary Hold Information 96 Hour Hold: 96 Hour Involuntary Admission: Yes 96 Hour Hold Ending Date: 10/07/21 96 Hour Hold Ending Time: 18:07 Attestations NPU Medical Necessity Statement*: Inpatient hospitalization is medically necessary and the clinically appropriate intervention at this time. We will monitor medication to make changes as indicated. Patient will be in the hospital for over two midnights. Likely length of stay 3 to 5 days. Coding Level of Care Code Acute Apiculturist for Jamal Bell Diagnoses Generalized anxiety disorder F41.1 Depression F32.9 Depression Type: unspecified Schizophrenia F20.9 Psychosis F29
[2021-10-02] MEDS: OLANZapine 5 mg ODT PO (16:08)
[2021-10-02] MEDS: quetiapine 100 mg Tablet 200 MG PO (20:31)
[2021-10-02 20:51] VITALS: BP 117/74; PULSE 77; RESP 17; TEMP 36.7; O2SAT 98
[2021-10-03] MEDS: nicotine 2 mg Gum BUCCAL ×4 (01:44→21:55)
[2021-10-03 06:00] VITALS: BP 120/78; PULSE 69; RESP 17; TEMP 36.8; O2SAT 98
[2021-10-03] MEDS: PARoxetine 20 mg Tablet PO (09:30)
[2021-10-03] MEDS: doxepin 50 mg Capsule PO (09:30)
--- NOTE | 2021-10-03 13:17 | W.PM.NPUPNS ---
Subjective NPU Subjective: Patient present today reporting that he did get a chance to talk to his grandmother and there was no real conversation about him coming there nor did he think that going there was going to be an option. He reports that he is having no problems with staff or other posterior and he feels safe and is taking no issue with being here he really would work with ERE on Tuesday looking with options were at that time. At this point is not interested in considering any medication changes but we will speak with his outpatient treatment team and get a sense of what they feel like the issue has been how we might be able to help him. Mental Status Exam MSE Comments: This is a well-nourished well-developed -Swiss male with hospital scrubs on with limited grooming and eye contact.? No abnormal movements except for mild psychomotor agitation.? Cooperative with exam in no acute distress.? Speech was limited but normal rate and volume.? Mood described as all right, affect guarded.? Thought process organized.? Thought content: Patient denied suicidal or homicidal ideation, there were no delusions reported but paranoid or persecutory delusions seem to exist, did not appear to be attending to internal stimuli during the conversation but later did appear internally preoccupied but he denied auditory or visual hallucinations.? Attention and concentration were limited and memory was mostly reliable but none were formally tested.? He is alert and oriented times person and place.? Insight and judgment are impaired, impulse control is limited. Vitals/I&O/Wt Last Vital Signs Temp 98.3 F 10/03/21 06:00 Pulse 69 10/03/21 06:00 Resp 17 10/03/21 06:00 BP 120/78 10/03/21 06:00 Pulse Ox 98 10/03/21 06:00 Data NPU : 10/01/21 18:49 10/01/21 18:49 A&P Assessment and plan (1) Psychosis: Status: Acute (2) Depression: Status: Acute Qualifiers: Depression Type: unspecified Qualified Code(s): F32.9 - Major depressive disorder, single episode, unspecified (3) Generalized anxiety disorder: Status: Acute (4) Schizophrenia: Status: Acute (5) Agoraphobia with panic disorder: Status: Acute Plan This is a 26-year-old -Swiss male with a long history of mental health issues including schizophrenia and anxiety as well as depression who presents on a 96-hour hold after reports of strange, psychotic behavior. 1.? Continue current medication.? We will explore whether medication changes need to be made and consider whether adherence is an issue. 2.? Continue every 15 minute checks for safety. 3.? Encourage individual, group and milieu therapies. 4.? We will work with the ERE program for stable discharge plan. Involuntary Hold Information 96 Hour Hold: 96 Hour Involuntary Admission: Yes 96 Hour Hold Ending Date: 10/07/21 96 Hour Hold Ending Time: 18:07 Attestations NPU Medical Necessity Statement*: Inpatient hospitalization is medically necessary and the clinically appropriate intervention at this time. We will monitor medication to make changes as indicated. Likely length of stay 3 to 5 days. Coding Level of Care Code Acute Hydraulic Miner Blasting for Jamal Fwd Diagnoses Psychosis F29 Depression F32.9 Depression Type: unspecified Generalized anxiety disorder F41.1 Schizophrenia F20.9 Agoraphobia with panic disorder F40.01
[2021-10-03 14:00] VITALS: BP 108/72; PULSE 79; RESP 16; TEMP 36.4; O2SAT 97
[2021-10-03] MEDS: hyDROXYzine 25 mg Capsule 50 MG PO (15:16)
[2021-10-03] MEDS: quetiapine 100 mg Tablet 200 MG PO (20:21)
[2021-10-03 22:00] VITALS: BP 113/71; PULSE 95; RESP 18; TEMP 36.4; O2SAT 95
[2021-10-04 06:00] VITALS: BP 114/75; PULSE 64; RESP 16; TEMP 36.6; O2SAT 98; BMI 26.6
[2021-10-04] MEDS: nicotine 2 mg Gum BUCCAL ×2 (06:55→15:52)
[2021-10-04] MEDS: doxepin 50 mg Capsule PO (08:45)
[2021-10-04] MEDS: PARoxetine 20 mg Tablet PO (08:45)
--- NOTE | 2021-10-04 12:34 | PC.NURSE ---
Pt coloring upon entering room. Denies pain, or SI/HI. Pleasant.
[2021-10-04 14:00] VITALS: BP 118/67; PULSE 66; RESP 16; TEMP 36.8; O2SAT 100
--- NOTE | 2021-10-04 17:44 | P.NPUPN_ITS ---
Subjective NPU Subjective: Patient presents today little bit antsy about discharge but seeming somewhat confused as he is wanting to be discharged but does not have a clear place and where he can or would go. Conversations with his grandmother have not yielded any sense that she is to change her mind about allowing him to return at least at this point and so we have discussed working with [facility] to figure out what would be reasonable in his mind. He is currently resistant to medication changes but endorsing that he is okay maintaining his current medication. Mental Status Exam MSE Comments: This is a well-nourished well-developed -Citizen Of [place] male with hospital scrubs on with limited grooming and eye contact.? No abnormal movements except for mild psychomotor agitation.? Cooperative with exam in no acute distress.? Speech was limited but normal rate and volume.? Mood described as pretty good, affect guarded.? Thought process organized.? Thought content: Patient denied suicidal or homicidal ideation, there were no delusions reported but paranoid or persecutory delusions seem to exist, did not appear to be a ttending to internal stimuli during the conversation but later did appear internally preoccupied but he denied auditory or visual hallucinations.? Attention and concentration were limited and memory was mostly reliable but none were formally tested.? He is alert and oriented times person and place.? Insight and judgment are impaired, impulse control is limited. Vitals/I&O/Wt Last Vital Signs Temp 98.2 F 10/04/21 14:00 Pulse 66 10/04/21 14:00 Resp 16 10/04/21 14:00 BP 118/67 10/04/21 14:00 Pulse Ox 100 10/04/21 14:00 Weight last 48 hrs Weight 86.636 kg Data NPU : 10/01/21 18:49 10/01/21 18:49 A&P Assessment and plan (1) Psychosis: Status: Acute (2) Depression: Status: Acute Qualifiers: Depression Type: unspecified Qualified Code(s): F32.9 - Major depressive disorder, single episode, unspecified (3) Generalized anxiety disorder: Status: Acute (4) Schizophrenia: Status: Acute (5) Agoraphobia with panic disorder: Status: Acute Plan This is a 26-year-old -Citizen Of [place] male with a long history of mental health issues including schizophrenia and anxiety as well as depression who presents on a 96-hour hold after reports of strange, psychotic behavior. 1.? Continue current medication.? We will explore whether medication changes need to be made and consider whether adherence is an issue. 2.? Continue every 15 minute checks for safety. 3.? Encourage individual, group and milieu therapies. 4.? We will work with the [facility] program for stable discharge plan. Involuntary Hold Information 96 Hour Hold: 96 Hour Involuntary Admission: Yes 96 Hour Hold Ending Date: 10/07/21 96 Hour Hold Ending Time: 18:07 Attestations NPU Medical Necessity Statement*: Inpatient hospitalization is medically necessary and the clinically appropriate intervention at this time. We will monitor medication to make changes as indicated.? Likely length of stay 2-4 days. Coding Level of Care Code Acute Bus System Operator for Jamal Fwd Diagnoses Psychosis F29 Depression F32.9 Depression Type: unspecified Generalized anxiety disorder F41.1 Schizophrenia F20.9 Agoraphobia with panic disorder F40.01
[2021-10-04] MEDS: quetiapine 100 mg Tablet 200 MG PO (20:00)
[2021-10-04 20:25] VITALS: BP 124/76; PULSE 68; RESP 20; TEMP 36.5; O2SAT 95
[2021-10-05] MEDS: nicotine 2 mg Gum BUCCAL ×3 (00:26→20:06)
[2021-10-05 06:00] VITALS: BP 118/70; PULSE 72; RESP 16; TEMP 36.4; O2SAT 95
[2021-10-05] MEDS: doxepin 50 mg Capsule PO (08:22)
[2021-10-05] MEDS: PARoxetine 20 mg Tablet PO (08:22)
[2021-10-05 14:00] VITALS: BP 124/72; PULSE 82; RESP 16; TEMP 36.6; O2SAT 97
--- NOTE | 2021-10-05 16:33 | P.NPUPN_ITS ---
Subjective NPU Subjective: Patient presents today reporting that he is doing well overall. A long conversation about the [facility] and his time at [facility] and [place]. He reported that he does not want to return to [facility] because it is only near a couple restaurants and he is once again quite focused on getting a job in earning a living. Is why continues to want to be closer [facility] [place] [facility] he has a good chance of having a job opportunity. He did speak to his family and there is no give on their desire to have him come back to their place. He reports that the medication is working fine for him and he once again refused any suggestions of medication changes. Mental Status Exam MSE Comments: This is a well-nourished well-developed -[place]aj[place] male with hospital scrubs on with limited grooming and eye contact.? No abnormal movements except for mild psychomotor agitation.? Cooperative with exam in no acute distress.? Speech was limited but normal rate and volume.? Mood described as I am good, affect guarded.? Thought process organized.? Thought content: Patient denied suicidal or homicidal ideation, there were no delusions reported but paranoia seem to exist, did not appear to be attending to internal stimuli during the conversation, and he denied auditory or visual hallucinations.? Attention and concentration were limited and memory was mostly reliable but none were formally tested.? He is alert and oriented times person and place.? Insight and judgment are limited, impulse control is limited.? Vitals/I&O/Wt Last Vital Signs Temp 98.0 F 10/05/21 20:31 Pulse 83 10/05/21 20:31 Resp 17 10/05/21 20:31 BP 106/71 10/05/21 20:31 Pulse Ox 96 10/05/21 20:31 Weight last 48 hrs Weight 86.636 kg Data NPU : 10/01/21 18:49 10/01/21 18:49 A&P Assessment and plan (1) Psychosis: Status: Acute (2) Depression: Status: Acute Qualifiers: Depression Type: unspecified Qualified Code(s): F32.9 - Major depressive disorder, single episode, unspecified (3) Generalized anxiety disorder: Status: Acute (4) Schizophrenia: Status: Acute (5) Agoraphobia with panic disorder: Status: Acute Plan This is a 26-year-old -[place] male with a long history of mental health issues including schizophrenia and anxiety as well as depression who presents on a 96-hour hold after reports of strange, psychotic behavior. 1.? Continue current medication.? We will explore whether medication changes need to be made and consider whether adherence is an issue. 2.? Continue every 15 minute checks for safety. 3.? Encourage individual, group and milieu therapies. 4.? We will work with the [facility] program for stable discharge plan. Involuntary Hold Information 96 Hour Hold: 96 Hour Involuntary Admission: Yes 96 Hour Hold Ending Date: 10/07/21 96 Hour Hold Ending Time: 18:07 Attestations NPU Medical Necessity Statement*: Inpatient hospitalization is medically necessary and the clinically appropriate intervention at this time. We will monitor medication to make changes as indicated.? Likely length of stay 1-3 days. Coding Level of Care Code Acute Beam House Inspector for Juan Jg Fwd Diagnoses Psychosis F29 Depression F32.9 Depression Type: unspecified Generalized anxiety disorder F41.1 Schizophrenia F20.9 Agoraphobia with panic disorder F40.01
[2021-10-05] MEDS: quetiapine 100 mg Tablet 200 MG PO (20:06)
[2021-10-05 20:31] VITALS: BP 106/71; PULSE 83; RESP 17; TEMP 36.7; O2SAT 96
[2021-10-06 06:00] VITALS: BP 112/74; PULSE 79; RESP 17; TEMP 36.9; O2SAT 96
[2021-10-06] MEDS: PARoxetine 20 mg Tablet PO (08:38)
[2021-10-06] MEDS: doxepin 50 mg Capsule PO (08:38)
[2021-10-06] MEDS: nicotine 2 mg Gum BUCCAL ×2 (09:18→23:33)
[2021-10-06 14:00] VITALS: BP 121/72; PULSE 96; RESP 20; TEMP 36.8; O2SAT 97
--- NOTE | 2021-10-06 18:01 | P.NPUPN_ITS ---
Subjective NPU Subjective: Patient presents today continuing to discuss concerns about returning to [place]. He continues to lack options when he comes to family. He continues to be focused on exploring options that would allow him to have some ability to pursue employment and the ability to make some valles on his own. He discussed a couple possibilities in [place] including [facility] and possibly [facility]. We agreed we would work with the treatment team in the morning to identify which one is the most reasonable option given his mental firing. Mental Status Exam MSE Comments: This is a well-nourished well-developed -[place] male with hospital scrubs on with limited grooming and eye contact.? No abnormal movements.? Cooperative with exam in no acute distress.? Speech was limited but normal rate and volume.? Mood described as all right/pretty good, affect guarded.? Thought process organized.? Thought content: Patient denied suicidal or homicidal ideation, there were no delusions reported but some mild paranoia seems to exist, did not appear to be attending to internal stimuli during the co nversation, and he denied auditory or visual hallucinations.? Attention and concentration were intact and memory was mostly reliable but none were formally tested.? He is alert and oriented times 3.? Insight and judgment are limited but improving impulse control is limited.? Vitals/I&O/Wt Last Vital Signs Temp 98.6 F 10/06/21 22:00 Pulse 71 10/06/21 22:00 Resp 16 10/06/21 22:00 BP 110/71 10/06/21 22:00 Pulse Ox 93 10/06/21 22:00 Data NPU : 10/01/21 18:49 10/01/21 18:49 A&P Assessment and plan (1) Psychosis: Status: Acute (2) Generalized anxiety disorder: Status: Acute (3) Schizophrenia: Status: Acute (4) Major depressive disorder, recurrent, moderate: Status: Acute Plan This is a 26-year-old -[place] male with a long history of mental health issues including schizophrenia and anxiety as well as depression who presents on a 96-hour hold after reports of strange, psychotic behavior. 1.? Continue current medication.? We will explore whether medication changes need to be made and consider whether adherence is an issue. 2.? Continue every 15 minute checks for safety. 3.? Encourage individual, group and milieu therapies. 4.? We will work with the [facility] program for stable discharge plan. Involuntary Hold Information 96 Hour Hold: 96 Hour Involuntary Admission: Yes 96 Hour Hold Ending Date: 10/07/21 96 Hour Hold Ending Time: 18:07 Attestations NPU Medical Necessity Statement*: Inpatient hospitalization is medically necessary and the clinically appropriate intervention at this time. We will monitor medication to make changes as indicated.? Likely length of stay 1-3 days. Coding Level of Care Code Acute Physician Relations Manager for Jamal Fwd Diagnoses Psychosis F29 Generalized anxiety disorder F41.1 Schizophrenia F20.9 Major depressive disorder, recurrent, moderate F33.1
[2021-10-06] MEDS: quetiapine 100 mg Tablet 200 MG PO (21:16)
[2021-10-06 22:00] VITALS: BP 110/71; PULSE 71; RESP 16; TEMP 37; O2SAT 93
[2021-10-07 06:00] VITALS: BP 129/79; PULSE 60; RESP 18; TEMP 36.5; O2SAT 95
[2021-10-07] MEDS: nicotine 2 mg Gum BUCCAL ×2 (09:20→18:10)
[2021-10-07] MEDS: PARoxetine 20 mg Tablet PO (09:20)
[2021-10-07] MEDS: doxepin 50 mg Capsule PO (09:20)
--- NOTE | 2021-10-07 11:53 | NPU.GN ---
[facility] Topic:Ezequiel Kohler General Mood of Group: Patient did not attend group today.
[2021-10-07 14:00] VITALS: BP 102/64; PULSE 68; RESP 16; TEMP 36.3; O2SAT 96
--- NOTE | 2021-10-07 16:27 | P.NPUPN_ITS ---
Subjective NPU Subjective: Patient presents today reporting that he worked out a situation with the treatment team that he has some place to go. He is very happy about the set up given his desire to try to get a job and get some revenue flowing. He reports he likes to work in really helps his self esteem. We discussed making sure everything is in place in the morning so that he can go early enough that there are no concerns about him getting into the program in [place] that has been arranged. He reports he is doing fine on the medication and reports that he is eating and sleeping well. Mental Status Exam MSE Comments: This is a well-nourished well-developed -[place] Citizen male with hospital scrubs on with adequate grooming and eye contact.? No abnormal movements.? Cooperative with exam in no acute distress.? Speech was limited but normal rate and volume.? Mood described as pretty good, ready to go, affect congruent and less guarded.? Thought process organized.? Thought content: Patient denied suicidal or homicidal ideation, there were no delusions reported but some mild paranoia seems to exist, did not appear to be attending to internal stimuli during the conversation, and he denied auditory or visual hallucinations.? Attention and concentration were intact and memory was mostly reliable but none were formally tested.? He is alert and oriented times 3.? Insight and judgment are limited but improving impulse control is limited.? Vitals/I&O/Wt Last Vital Signs Temp 97.3 F L 10/07/21 14:00 Pulse 68 10/07/21 14:00 Resp 16 10/07/21 14:00 BP 102/64 10/07/21 14:00 Pulse Ox 96 10/07/21 14:00 Data NPU : 10/01/21 18:49 10/01/21 18:49 A&P Assessment and plan (1) Psychosis: Status: Acute (2) Generalized anxiety disorder: Status: Acute (3) Schizophrenia: Status: Acute (4) Agoraphobia with panic disorder: Status: Acute (5) Major depressive disorder, recurrent, moderate: Status: Acute Plan This is a 26-year-old -[place] Citizen male with a long history of mental health issues including schizophrenia and anxiety as well as depression who presents on a 96-hour hold after reports of strange, psychotic behavior. 1.? Continue current medication.? We will explore whether medication changes need to be made and consider whether adherence is an issue. 2.? Continue every 15 minute checks for safety. 3.? Encourage individual, group and milieu therapies. 4.? Patient work with social work team to get snf/lodging and mental health follow-up planning in [place]. Involuntary Hold Information 96 Hour Hold: 96 Hour Involuntary Admission: Yes 96 Hour Hold Ending Date: 10/07/21 96 Hour Hold Ending Time: 18:07 Attestations NPU Medical Necessity Statement*: Inpatient hospitalization is medically necessary and the clinically appropriate intervention at this time. We will monitor medication to make changes as indicated.? Likely length of stay 1-3 days. Coding Level of Care Code Acute Pharmacy Messenger for g Fwd Diagnoses Psychosis F29 Generalized anxiety disorder F41.1 Schizophrenia F20.9 Agoraphobia with panic disorder F40.01 Major depressive disorder, recurrent, moderate F33.1
[2021-10-07 19:30] VITALS: BP 113/66; PULSE 78; RESP 18; TEMP 37; O2SAT 96
[2021-10-07] MEDS: quetiapine 100 mg Tablet 200 MG PO (21:35)
[2021-10-08 05:03] VITALS: BP 97/52; PULSE 64; RESP 17; TEMP 36.4; O2SAT 97
[2021-10-08] MEDS: nicotine 2 mg Gum BUCCAL ×4 (06:45→21:10)
[2021-10-08] MEDS: PARoxetine 20 mg Tablet PO (09:15)
[2021-10-08] MEDS: doxepin 50 mg Capsule PO (09:15)
[2021-10-08 09:24] VITALS: BP 97/52; PULSE 64; RESP 17; TEMP 36.4; O2SAT 97
--- NOTE | 2021-10-08 12:42 | NPU.GN ---
[facility] Topic:Dice Breaker General Mood of Group Patient did not attend group today. Patient was sleeping.
[2021-10-08 14:00] VITALS: BP 129/77; PULSE 63; RESP 16; TEMP 36.5; O2SAT 98
--- NOTE | 2021-10-08 18:41 | P.NPUPN_ITS ---
Subjective NPU Subjective: Patient is today reporting that he is still committed to our original plan to get him to [facility] where he can have appropriate resources. He responded as well as could be expected to the ride service failing to provide a ride able to [place] the day prior. Significant leg work was put in we discussed to make sure that the same thing did not happen tomorrow. He denied any issues with his situation and reports that he understands that things like that happen he is appreciative of the help in getting them in the first place and reports he is open to the discharge in the morning. Mental Status Exam MSE Comments: This is a well-nourished well-developed -[place] male with hospital scrubs on with adequate grooming and eye contact.? No abnormal movements.? Cooperative with exam in no acute distress.? Speech was limited but normal rate and volume.? Mood described as pretty good affect congruent and less guarded.? Thought process organized.? Thought content: Patient denied suicidal or homicidal ideation, there were no delusions reported but some mild paranoia seems to exist, did not appear to be attending to internal stimuli during the conversation, and he denied auditory or visual hallucinations.? Attention and concentration were intact and memory was mostly reliable but none were formally tested.? He is alert and oriented times 3.? Insight and judgment are limited but improving impulse control is limited. Vitals/I&O/Wt Last Vital Signs Temp 98.2 F 10/08/21 21:30 Pulse 95 10/08/21 21:30 Resp 17 10/08/21 21:30 BP 122/80 10/08/21 21:30 Pulse Ox 99 10/08/21 21:30 Data NPU : 10/01/21 18:49 10/01/21 18:49 A&P Assessment and plan (1) Psychosis: Status: Acute (2) Generalized anxiety disorder: Status: Acute (3) Schizophrenia: Status: Acute (4) Agoraphobia with panic disorder: Status: Acute (5) Major depressive disorder, recurrent, moderate: Status: Acute Plan This is a 26-year-old -[place] male with a long history of mental health issues including schizophrenia and anxiety as well as depression who presents on a 96-hour hold after reports of strange, psychotic behavior. 1.? Continue current medication.? 2.? Continue every 15 minute checks for safety. 3.? Encourage individual, group and milieu therapies. 4.? Patient work with social work team to get usp/lodging and mental health follow-up planning in [facility] [place]. Discharge in the morning. Involuntary Hold Information 96 Hour Hold: 96 Hour Involuntary Admission: Yes 96 Hour Hold Ending Date: 10/07/21 96 Hour Hold Ending Time: 18:07 Attestations NPU Medical Necessity Statement*: Inpatient hospitalization is medically necessary and the clinically appropriate intervention at this time. We will monitor medication to make changes as indicated.? Discharge in the morning. Coding Level of Care Code Acute On Call Pharmacy Technician for g Fwd Diagnoses Psychosis F29 Generalized anxiety disorder F41.1 Schizophrenia F20.9 Agoraphobia with panic disorder F40.01 Major depressive disorder, recurrent, moderate F33.1
[2021-10-08] MEDS: quetiapine 100 mg Tablet 200 MG PO (21:10)
[2021-10-08 21:30] VITALS: BP 122/80; PULSE 95; RESP 17; TEMP 36.8; O2SAT 99
--- NOTE | 2021-10-09 00:05 | PC.NURSE ---
PRN ADMIN Patient requested nicotine gum, given as ordered.
[2021-10-09 06:00] VITALS: RESP 17
[2021-10-09 07:00] VITALS: BP 99/64; PULSE 64; RESP 17; TEMP 36.3; O2SAT 99
--- NOTE | 2021-10-09 08:00 | P.NPUDS_ITS ---
Diagnoses at Discharge Discharge Diagnosis (1) Psychosis: Status: Acute (2) Generalized anxiety disorder: Status: Acute (3) Schizophrenia: Status: Acute (4) Agoraphobia with panic disorder: Status: Acute (5) Major depressive disorder, recurrent, moderate: Status: Acute Reason for Visit Reason for Visit: MHE, HALLUCINATIONS, PARANOID Brief History: History of Present Illness Luis Fernando Hanley is a 26 year old male who presented to the emergency department the following report: Chief Complaint: P sychiatric Symptom s Stated Complaint : MHE, HALLUCINATI ONS, PARANOID Time Seen by Provider: 10/01/21 18:19? ? History of Present Illness:??? Mr Hanley is a 26-yea r-old gentleman wi th significant pas t medical history of psychiatric dis order who presents to the emergency department due to 96-hour hold.? The patient himself i s unsure as to wha t the concern migh t have been or who filed 96-hour pap erwork on him.? He denies suicidal o r homicidal ideati on.? He denies jim lucinations or fee ling threatened/co ncerns regarding i t being following him.? He reports c ompliance with his medications.? He endorses currently living with his m om and believes th ings are going oka y.? He otherwise d enies medical comp laints.? Due to a denial of symptoms there is no cours e, intensity, prov oking, exacerbatin g, or alleviating factors identified . Per 96-hour pap erwork the patient has not been taki ng his medication and has been wande ring around.? 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 He be comes focused and paranoid regarding perceived world e vents. He was admitted to the neuropsychiatric unit for definitive treatment of those issues.? He presents today reporting that he is any sure was going on other than he was not doing well.? He was somewhat ambivalent about his adherence with medication but reported that he was taking it.? He has been associated with a ERE program and I reviewed the notes and talk to him about what the notes were staying in the ambiguous as he has seemed to be when they were trying to work with him.? He reports that his living arrangement has been sporadic.? At times living with grandma but as is documented in the notes there has been times at [facility] and times at [facility].? He could not really articulate what his plan should or would be.? He reported that he was fine taking his medication that he was to be safe and not causing problems and felt he was okay overall.? He had been noted going up the hallway kind of speaking to himself.? At 1 time he was in the room and the patient gathering area by himself seeming to shadow box.? There are other reports of him shadow boxing coming fairly close to hitting the parker.? He had no explanation for these behaviors.? He did talk about hoping to go home to his grandmother's house and invited him to reach out to her to see what she says from documents I have read it seems like she is concerned about his behavior and not feeling he is safe or healthy enough to go home.? He denies any changes since his last hospitalization, which appears to be 05/27/2021.? An excerpt from that note is included below for historical context given his limited ability as a historian and his current frame of mind. Per his 05/27/2021 [facility] inpatient psychiatric evaluation: History of Present Illness Luis Fernando Hanley is a 25 year old male who presented to the emergency department with the following report: Chief complaint: Psychiatric Symptoms Stated complaint: SI Time Seen by Provider: 05/26/21 01:17 History of Present Illness:?? HPI narrative: HPI: [25]yo patient w/ hx of depression BIBA for SI and depression. Patient tells me he plans to overdose if he were to go home today. Symptoms of SI have gotten worse over the last few days. On arrival, the patient is AAOx3 and cooperative with my evaluation. No focal complaints of chest pain, shortness of breath, palpitations, N/V, focal GI/ complaints. +SI currently. No complaints of hallucinations. Onset: chronic Duration: ongoing Location: home Severity: severe. He has no negative treatment of those issues.? He presents today reporting that things did not go well after discharge.? He reports that he went to his mom's place and she did not feel that he was well enough at 1 point he got frustrated with him.? He then went to his grandmother's place and they just did not work out well.? He reports that he was taking his medication but that symptoms began to worsen.? We discussed as we did in his last hospitalization the importance of him having some stability to manifest his recovery.? The ERE program came to visit today and we will catch up with him later and determine what they were able to find as possible options to help him in his residential stability.? We discussed the risk benefits and alternatives to possibly changing the Seroquel and other medications tomorrow however during his last stay he certainly got better each day on those medications when he was taking them daily and he understood agreed proceed as is documented in this note.? An excerpt from his discharge 05/19/2021 is included below for context given that there are no substantive changes. Per his 05/19/2021 [facility] inpatient psychiatric discharge summary: Discharge Diagnosis (1) Suicide ideation: ? ? ? Status: Resolved (2) Depression: ? ? ? Status: Acute ? ? ? Qualifiers: ? Depression Type: unspecified? Qualified Code(s): F32.9 - Major depressive disorder, single episode, unspecified (3) Generalized anxiety disorder: ? ? ? Status: Acute (4) Schizophrenia: ? ? ? Status: Acute ? ? ? Qualifiers: ? Schizophrenia type: unspecified? Qualified Code(s): F20.9 - Schizophrenia, unspecified (5) ST elevation: ? ? ? Status: Acute (6) Right bundle branch block (RBBB) on electrocardiogram (ECG): ? ? ? Status: Acute (7) Agoraphobia with panic disorder: ? ? ? Status: Acute (8) Major depressive disorder, recurrent, moderate: ? ? ? Status: Acute Reason for Visit Reason for Visit:?? 96: W/LAW ENFORCEMENT? Brief History: History of Present Illness Luis Fernando Hanley is a 25 year old male who presented to the emergency department with the following report: Chief Complaint: Psychiatric Symptoms Stated Complaint: 96: W/LAW ENFORCEMENT Time Seen by Provider: 05/13/21 13:34 History of Present Illness:?? HPI Narrative: 25-year-old male presents with suicidal ideation.? By Police Department due to concern that he may harm himself.? Denies any desire to harm anyone else.? Does not have a concrete plan.? Denies any hallucinations or delusions.? Denies any focal medical complaint or focal pain. He is admitted to the neuropsychiatric unit for definitive treatment of those issues. He presents today reporting that he has been hospitalized a lot of times in his life due to may need to recall. He reports the last time he was at a hospital was about a week ago in [place] but was not admitted. He denies outpatient services but is clearly confused because documentation of outpatient services at [facility] has been in the system as recently as 05/13/2021. He appears to be a questionable historian with some factual pieces seeming consistent with previous notes and other parts being inconsistent however he does not appear to have a motive did not answer the questions authentically. An excerpt is March 07, 2019 evaluation with this advertising copy writer as below for context. He reports that recently he had not been on medication. But Klonopin, on Seroquel trazodone were recently reconciled an appointment he had yesterday. He endorses he smokes about a pack of cigarettes a day, denies alcohol marijuana or any other illicit drug use. He reports that he does not have suicidal thoughts that would not stop. He reports that he has been staying at his mom's house but also he had gone to [place] hopes he would get a job, but that did not work and he was staying at [facility]. He reports that his mom is about improved with the job he is liking it was in [place]. His goal is to get a job and live on his own. He reports he had 1 suicide attempt about a year or 2 ago. He denies any major changes in psychosocial history. Per his [facility] inpatient psychiatric evaluation 02/27/2019: Date of Service: Feb 27, 2019 Chief Complaint: Feeling depressed and suicidal. HPI: Patient presents today as a fairly poor historian.? He reports that he has been feeling suicidal for weeks and was recently discharged from the hospital.? He reports that he had no difficulties as a teen and that at 15 years old he started experimenting with alcohol and marijuana mostly marijuana.? There was a point where he was smoking marijuana daily.? He reports that he has since 19 stopped using essentially any drugs of abuse.? He reports that he has been staying with his grandparents recently and has just had increasing levels of feelings of hopelessness, helplessness, worthlessness, feeling suicidal and having anxiety.? Having depression.? He is unclear if there are any contributing factors or reasons why he is feeling this way.? He does report a significant period of homelessness before he recently moved in with his maternal grandparents.? He reports that he was kicked out by his mother when he turned 19 and that he had been homeless for the last almost 4 years.? He can give no clear information on her description of why he was unable to get a job or get his footing.? He denies most symptoms of psychosis but ultimately does report some paranoia and confusion. Per ED eval: HISTORY OF PRESENT ILLNESS Chief Complaint: ANXIOUS and SUICIDAL THOUGHTS.? This started 3 weeks ago. (23 yo Male presents to ED with complaints of anxiety and suicidal ideations. Pt states that he has been feeling like life is meaningless and he has been thinking about killing himself. Pt states that he has had paranoid schizophrenia and anxiety in the past. Pt states that he is not hearing any voices right now.). ? No situational problems or recent drug use or alcohol consumption.? He has not exhibited a behavior change, was not found wandering and is compliant with medication.? Has had suicidal thoughts but been eating or sleeping or not been depressed.? He has had anxiety.? No anger, unusual behavior, paranoia, delusions or self-injury inflicted.? No hallucinations. ? The symptoms are described as mild.? No injury is present. ? Similar symptoms previously. ? Recent medical care: Seen for in ED on 08/03/18 for MHE DX Paranoid Schizophrenia. ? REVIEW OF SYSTEMS No headache, dizziness, weakness, chest pain or palpitations.? No abdominal pain, vomiting, diarrhea, black stools or numbness.? No fever, sore throat, cough, difficulty breathing or urinary frequency.? No skin rash, enlarged lymph nodes, joint pain, weight loss or laceration.? All other systems reviewed and are negative. ? PAST HISTORY See nurses notes.? ( PCP-none).? Anxiety.? Bipolar disorder.? Schizophrenia. ? Surgeries: No history of previous surgery. ? SOCIAL HISTORY Smoker- current status unknown (Chews tobacco).? Never smoker.? Occasional alcohol use. Last drink was 24 to 48 hours ago.? No drug use. ? ADDITIONAL NOTES The nursing notes have been reviewed. ? PHYSICAL EXAM Vital Signs: 02/26/2019 17:04 BP: 137/79. HR: 70. RR: 20. O2 saturation: 96%. Temp: 97.8 F. Appearance: Alert.? No acute distress.? Appearance is normal. Eyes: Pupils equal, round and reactive to light. Neck: Normal inspection.? Neck supple. CVS: Normal heart rate and rhythm.? Heart sounds normal. Respiratory: Breath sounds normal.? Chest nontender. Abdomen: Soft and nontender. Back: No tenderness. Skin: Skin warm and dry.? Normal skin color.? Normal skin turgor. Extremities: Extremities exhibit normal ROM.? No lower extremity edema. Psych / Neuro: Oriented X 3.? Mood and affect normal.? Speech normal. Cognition normal.? Thought process normal.? He expresses suicidal thoughts. Insight and judgement normal.? Cranial nerves normal (as tested).? No cerebellar findings.? No motor deficit.? No sensory deficit.? Reflexes normal. Allergies: Coded Allergies: ?? ? NO KNOWN ALLERGIES (Unverified , 08/03/18) Active Meds: Current Hospital Medications: ?Medications ? (Trade) ?Dose ?Ordered ?Sig/Cristian ?Route ?PRN Reason ?Start Time ?Stop Time Status Last Admin Dose Admin ?Lorazepam ? (Ativan Tab) ?0.5 mg ?Q4H? PRN ?PO ?FOR MILD ANXIETY ?02/26/19 19:00 ?Lorazepam ? (Ativan Tab) ?1 mg ?Q4H? PRN ?PO ?FOR MODERATE ANXIETY ?02/26/19 19:00 ?Lorazepam ? (Ativan Tab) ?2 mg ?Q4H? PRN ?PO ?FOR SEVERE ANXIETY ?02/26/19 19:00 ?Lorazepam ? (Ativan Inj) ?2 mg ?Q4H? PRN ?IM ?For Severe Aggression ?02/26/19 19:00 ?Haloperidol ?Lactate ? (Haldol Inj) ?5 mg ?Q4H? PRN ?IM ?Severe Aggression ?02/26/19 19:00 ?Diphenhydramine ?HCl ? (Benadryl Inj) ?50 mg ?ONCE? PRN ?IV ?Severe Extrapyramidal Symptoms ?02/26/19 19:00 ?Benztropine ?Mesylate ? (Cogentin Tab) ?1 mg ?BID? PRN ?PO ?Mild Extrapyramidal symptoms ?02/26/19 19:00 ?Benztropine ?Mesylate ? (Cogentin Inj) ?1 mg ?ONCE? PRN ?IM ?Severe Extrapyramidal Symptom ?02/26/19 19:00 ?Acetaminophen ? (Tylenol Tab) ?650 mg ?Q4H? PRN ?PO ?FOR MILD PAIN ?02/26/19 19:00 ?Trazodone HCl ? (Trazodone) ?50 mg ?BEDTIME? PRN ?PO ?FOR SLEEP ?02/26/19 19:00 ?Nicotine ? (Nicoderm Patch) ?21 mg ?DAILY? PRN ?TD ?FOR WITHDRAWAL ?02/26/19 19:00 ?Nicotine ?Polacrilex ? (Nicotine Gum) ?2 mg ?Q2H? PRN ?PO ?Withdrawal ?02/26/19 19:00 ?Haloperidol ? (Haldol Tab) ?5 mg ?Q4H? PRN ?PO ?For agitation ?02/26/19 19:00 ?Lorazepam ? (Ativan Tab) ?2 mg ?Q4H? PRN ?PO ?FOR AGITATION ?02/26/19 19:00 ?Clonazepam ? (Klonopin) ?0.5 mg ?BID ?PO ? ?02/26/19 22:00 ? ? 02/27/19 09:39 ? ?Paroxetine HCl ? (Paxil) ?20 mg ?DAILY ?PO ? ?02/27/19 10:00 ? ? 02/27/19 09:39 ? ?Olanzapine ? (Zyprexa Tab) ?20 mg ?BEDTIME ?PO ? ?02/26/19 22:00 ? ? 02/26/19 21:17 ? Past Medical History Other Family Medical History: Significant mental health issues including schizophrenia. No suicide attempts. Other Past Social History: Developmental history: He reports she is a product of a normal .? He reports he learned to walk and talk and met his developmental milestones on time.? He denies having speech therapy, learning support, emotional support and special education classes. Psychosocial history: He reports that he the only product of the union between his mother and father who stayed together until he was about 3 years old.? He endorses having 5 half- brothers through his mother and 3? 1/2 brothers and a half sister through his father.? He reports his childhood was good and he denies any emotional, physical or sexual abuse.? He made it through the 10th grade in high school and got his GED when he was around 19 years old.? He reports that he was really good in track? had no additional training after high school.? He is heterosexual and reports he is never really had a relationship.? He has never been , he has no children, he is never been in the , and endorses being a Bahai.? His only work history was to the [employer] for about 6 months and he lives with his maternal grandparents. Hospital Course Hospital Course He slowly acclimated to the individual, group and milieu therapies provided.? He was restarted on his trazodone 100 mg p.o. nightly, Seroquel was started at a lower dose of 300 mg p.o. nightly he continued on Remeron 15 mg p.o. nightly.? He tolerated these doses and showed steady improvement during his stay.? We attempted to work with him to find a more stable living arrangements given the v olatility and expectations in his grandmother and mother's homes but he was focused on leaving and had no credible lethality.? He was able to contract for safety outside hospital prior to discharge.? During the hospitalization, patient had routine laboratory studies which were within normal limits except for few outliers.? Additionally there was a general medical evaluation which was also within normal limits and revealed no new acute processes. Discharge Summary: At the time of discharge, lethality was denied and psychosis was resolving.? Mood and anxiety were well managed.? Patient endorsed a plan to follow-up with the aftercare recommendations of the treatment team.? Patient was evaluated and deemed to be absent credible lethality, and had achieved the maximum benefit from an inpatient hospitalization, so was discharged. Hospital Course Hospital Course He slowly acclimated to the individual, group and milieu therapies provided. There were concerns about his adherence to medication his home medications were restarted. He had a significant response further bolstering that idea and so he was maintained on those medications and advised to take them as prescribed. He was able to contract for safety outside the hospital prior to discharge. There was some difficulty with transportation but ultimately we were able to get him a ride to [place]. During the hospitalization, patient had routine laboratory studies which were within normal limits except for few outliers. Additionally there was a general medical evaluation which was also within normal limits and revealed no new acute processes. Discharge Summary: At the time of discharge, lethality was denied and psychosis was resolving. Mo od and anxiety were well managed. Patient endorsed a plan to avoid all drugs of abuse and follow-up with the aftercare recommendations of the treatment team. Patient was evaluated and deemed to be absent credible lethality, and had achieved the maximum benefit from an inpatient hospitalization, so was discharged. Involuntary Hold Information 2 96 Hour Hold: 96 Hour Involuntary Admission: Yes 96 Hour Hold Ending Date: 10/07/21 96 Hour Hold Ending Time: 18:07 Mental Status Exam MSE Comments: This is a well-nourished well-developed -[place] male with hospital scrubs on with adequate grooming and eye contact.? No abnormal movements.? Cooperative with exam in no acute distress.? Speech was limited but normal rate and volume.? Mood described as pretty good, ready to go, affect congruent.? Thought process organized.? Thought content: Patient denied suicidal or homicidal ideation, there were no delusions reported but some mild paranoia seems to exist, did not appear to be attending to internal stimuli during the conversation, and he denied auditory or visual hallucinations.? Attention and concentration were intact and memory was mostly reliable but none were formally tested.? He is alert and oriented times 3.? Insight and judgment are limited but improving, impulse control is limited.? Discharge Data Studies Completed and Pending: Laboratory Results WBC 10.2 10^3/uL (4.0 -10.0) H 10/01/21 18:49 RBC 5.89 10^6/uL (4.1 -5.3) H 10/01/21 18:49 Hgb 16.1 g/dL (11.7-1 6.6) 10/01/21 18:49 Hct 51.0 % (42.0-52.0 ) 10/01/21 18:49 MCV 86.6 fl (80-94) 10/01/21 18:49 MCH 27.3 pg (28.0-34. 0) L 10/01/21 18:49 MCHC 31.6 g/dL (30.0-3 6.0) 10/01/21 18:49 RDW 14.0 % (12.1-15.1 ) 10/01/21 18:49 Plt Count 303 10^3/cmm (130 -400) 10/01/21 18:49 MPV 10.1 fL (7.4-10.4 ) 10/01/21 18:49 Neut % (Auto) 82.7 % 10/01/21 18:49 Lymph % (Auto) 11.1 % 10/01/21 18:49 Sharkey % (Auto) 5.3 % 10/01/21 18:49 Eos % (Auto) 0.1 % 10/01/21 18:49 Baso % (Auto) 0.4 % 10/01/21 18:49 Neut # (Auto) 8.47 10^3/uL (1.8 -7.7) H 10/01/21 18:49 Lymph # (Auto) 1.1 10^3/uL (0.8- 4.8) 10/01/21 18:49 Sharkey # (Auto) 0.5 10^3/uL (0.2- 0.9) 10/01/21 18:49 Eos # (Auto) 0.0 10^3/uL (0.0- 0.8) 10/01/21 18:49 Baso # (Auto) 0.0 10^3/uL (0.0- 0.1) 10/01/21 18:49 Nucleated RBC % (a uto) 0 % 10/01/21 18:49 Nucleated RBCs # 0.0 /100WBC 10/01/21 18:49 Sodium 140 mmol/L (136-1 45) 10/01/21 18:49 Potassium 3.7 mmol/L (3.5-5 .1) 10/01/21 18:49 Chloride 101 mmol/L (98-10 7) 10/01/21 18:49 Carbon Dioxide 25 mmol/L (22-29) 10/01/21 18:49 Anion Gap 17.7 (5-19) 10/01/21 18:49 BUN 8 mg/dL (6-20) 10/01/21 18:49 Creatinine 1.0 mg/dL (0.7-1. 2) 10/01/21 18:49 GFR Calculation 110.2 mL/min (90- 130) 10/01/21 18:49 Glucose 121 mg/dL (65-115 ) H 10/01/21 18:49 Calculated Osmolal ity 290 mOsm/kg (285- 295) 10/01/21 18:49 Calcium 10.4 mg/dL (8.5-1 0.5) 10/01/21 18:49 Total Bilirubin 0.3 mg/dL (0.15-1 .2) 10/01/21 18:49 AST 28 U/L (0-40) 10/01/21 18:49 ALT 35 U/L (0-41) 10/01/21 18:49 Alkaline Phosphata se 86 IU/L (40-130) 10/01/21 18:49 Total Protein 8.0 g/dL (6.6-8.7 ) 10/01/21 18:49 Albumin 4.9 g/dL (3.5-5.2 ) 10/01/21 18:49 Globulin 3.1 g/dL (1.3-4.6 ) 10/01/21 18:49 Salicylates < 0.3 mg/dL (3-10 ) L 10/01/21 18:49 Urine Opiates Scre en Negative ng/mL (N egative) 10/01/21 18:46 Acetaminophen < 5.0 ug/mL (10-3 0) L 10/01/21 18:49 Ur Barbiturates Sc reen Negative ng/mL (N egative) 10/01/21 18:46 Ur Phencyclidine S crn Negative ng/mL (N egative) 10/01/21 18:46 Ur Amphetamines Sc reen Negative ng/mL (N egative) 10/01/21 18:46 U Benzodiazepines Scrn Negative ng/mL (N egative) 10/01/21 18:46 Urine Cocaine Scre en Negative ng/mL (N egative) 10/01/21 18:46 U Marijuana (THC) Screen Negative ng/mL (N egative) 10/01/21 18:46 Ethyl Alcohol < 10 mg/dL (0-10) 10/01/21 18:49 Vitals: Last Vital Signs Temp 97.5 F L 10/08/21 05:03 Pulse 64 10/08/21 05:03 Resp 17 10/08/21 05:03 BP 97/52 10/08/21 05:03 Pulse Ox 97 10/08/21 05:03 Discharge Plan Discharge Condition: Stable Prescriptions: Continued doxepin 50 mg capsule 50 mg PO DAILY 30 Days Qty: 30 1RF quetiapine 200 mg tablet 200 mg PO BEDTIME 30 Days Qty: 30 1RF paroxetine HCl 20 mg tablet 20 mg PO DAILY 30 Days Qty: 30 1RF Discontinued paroxetine HCl 20 mg tablet 20 mg PO DAILY 30 Days Qty: 30 1RF quetiapine 100 mg tablet 200 mg PO BEDTIME 0RF doxepin 50 mg capsule 50 mg PO DAILY 0RF Discharge Orders: Discharge Order (Routine); Ordered 10/09/21 Ordered By: Carmelo Avila Discharge Diet: Regular Discharge Activity: Resume usual activity Patient Instructions: Stress (DC), Psychotic Disorder (DC), Opioid Safety Discharge Attestations NPU Time Spent in Discharge Care*: less than 30 min Specific Discharge Activities: Specific discharge activities: educating patient, discussing with transplant case manager/social workers/dc planners, documenting/o ther paperwork and evaluating patient/reviewing data Status at Discharge: Cognitive status at discharge: cognitively intact , Behavioral status at discharge: cooperative , Coding Level of Care Code Acute g DC note Diagnoses Psychosis F29 Generalized anxiety disorder F41.1 Schizophrenia F20.9 Agoraphobia with panic disorder F40.01 Major depressive disorder, recurrent, moderate F33.1
[2021-10-09] MEDS: nicotine 2 mg Gum BUCCAL (08:26)
[2021-10-09] MEDS: PARoxetine 20 mg Tablet PO (08:26)
[2021-10-09] MEDS: doxepin 50 mg Capsule PO (08:27)
--- NOTE | 2021-10-09 09:27 | PC.NURSE ---
PT STABLE TO DC. PLAN WAS TO DC YESTERDAY BUT TRANSPORT WAS UNABLE TO GET PT TO [facility] IN [place] BY ASSIGNED TIME THEREFORE PT REMAINED AT [facility] THROUGHOUT NIGHT. DISCHARGING THIS MORNING WITH ALL PERSONAL BELONGINGS AND MEDICATIONS. DENIES ANY SI/HI AND AVH.
[2021-10-09 09:47] VITALS: BP 99/64; PULSE 64; RESP 17; TEMP 36.3; O2SAT 99
== END 2021-10-09 09:47 | disposition home or self-care (01) | DRG 885 ==
LOC: ER 21:28 → NP 10-02 00:15
PROVIDERS: Emergency Medicine; Admitting Provider Psychiatry & Neurology Psychiatry; Emergency Provider Emergency Medicine; Visit Provider Psychiatry & Neurology Psychiatry
DX: F25.1 Schizoaffective disorder, depressive type (principal); F17.210 Nicotine dependence, cigarettes, uncomplicated; F41.1 Generalized anxiety disorder; F40.01 Agoraphobia with panic disorder
CPT/HCPCS: 80053; 80306; 80307; 85025; 97165; 99285